=== PATIENT | male | born 1950 | race Caucasian/White ===

== ENCOUNTER 2018-02-16 18:19 | Inpatient (IN) | payer MEDICARE, OTHER ==
[~2018-02-16 18:19] MED LIST: Iopamidol 370 76% 100 ML VIAL ONE
[2018-02-16 18:38] LABS: Actual Bicarbonate (HCO3a) 34.5 mEq/L (22-28); Analyzer IN Cardio ER; Base Excess (BEa) 3.2 mEq/L (-2.0 to +3.0); Calcium, Ionized 1.22 mmol/L (1.12-1.30); Carboxyhemoglobin (COHb) 2.6 gm% (0.0-3.0); Hemoglobin (Hb) 13.2 g/dL (14.0-18.0); O2 Tension (PaO2) 207.4 mmHg (> 70.0); Potassium - ABG Lab 4.77 mmol/L (3.70-5.30)
[2018-02-16 18:39] LABS: CO2 Tension 94.3 mmHg (35.0-45.0); Puncture Site RRA; pH, Arterial 7.18 (7.35-7.45)
[2018-02-16 18:40] LABS: #Eosinphils 0.1 thou/uL (0.0-0.7); #Lymphocytes 1.3 thou/uL (1.20-3.40); #Monocytes 0.6 thou/uL (0.11-0.59); #Neutrophils 9.8 thou/uL (1.40-6.50); %Basophils 0.3 % (0.0-1.0); %Eosinophils 1.1 % (0.0-10.0); %Lymphocytes 11.1 % (21.0-51.0); %Monocytes 4.9 % (0.0-10.0); %Neutrophils 82.5 % (42.0-75.0); Hemoglobin 13.2 g/dL (14.0-18.0); Mean Platelet Volume 6.6 fL (7.4-10.4); Platelet Count 267 thou/uL (130-400); RBC Distribution Width 11.9 % (11.5-14.5); Red Blood Cell (RBC) Count 4.13 mill/uL (4.70-6.10); White Blood Cell (WBC) Count 11.9 thou/uL (4.8-10.8)
[2018-02-16 18:40] LABS: ALV-art Gradient 387.725 (0-20)
[2018-02-16 18:46] LABS: Bilirubin Negative (Negative); Blood, Urine Moderate (Negative); Clarity CLOUDY (Clear); Glucose, Urine (Dipstick) Negative (Negative); INR-International Normal Ratio 1.1; Leukocyte Large (Negative); Nitrite Negative (Negative); PTT 31.7 SEC (22.9-36.1); Protein, Urine (Dipstick) 30 mg/dL (Neg-Trace); Prothrombin Time 14.5 SEC (12.0-14.7); Specific Gravity, Urine 1.018 (1.002-1.036); pH, Urine 5.5 (5.0-9.0)
[2018-02-16 18:49] LABS: Bacteria/HPF None Seen HPF (None Seen); RBC/HPF 21-50 HPF (0-3); WBC/HPF 21-50 HPF (0-3)
[2018-02-16 18:50] LABS: Pathc Cast-AUWi Flag 3.48 (0-2.49)
[2018-02-16 18:58] LABS: ALT (SGPT) 18 U/L (8-55); AST (SGOT) 30 U/L (5-34); Alcohol Less than 10 mg/dL (Less than 10); Alkaline Phosphatase 73 U/L (40-150); Anion Gap 22 mmol/L (10-20); BUN (Urea Nitrogen) 31 mg/dL (8.4-25.7); Bilirubin, Total 0.5 mg/dL (0.2-1.2); CKMB 2.3 ng/mL (0-6.6); Calc. Creatinine Clearance 0 mL/min (70-130); Calcium 9.7 mg/dL (7.8-10.44); Carbon Dioxide 28 mmol/L (23-31); Chloride 94 mmol/L (98-107); Estimated GFR-MDRD 42; Globulin 4.6 g/dL (2.4-3.5); Glucose 127 mg/dL (80-115); Lipase 10 U/L (8-78); Potassium 6.3 mmol/L (3.5-5.1); Protein, Total 8.6 g/dL (5.8-8.1); Sodium 138 mmol/L (136-145)
[2018-02-16 19:07] LABS: Hyaline Casts/LPF 0-3 HYALINE CAST LPF (0-3 Hyaline); Other Casts/LPF None Seen LPF (0-3 Hyaline)
--- NOTE | 2018-02-16 19:39 | CT ---
CT BRAIN WITHOUT CONTRAST: INDICATIONS: Found in a pasture, after having been missing all day. The patient has altered mental status. FINDINGS: No definite acute infarct, hemorrhage, or hydrocephalus is present. There is generalized cerebral an d cerebellar atrophy. 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 There are remote lacunar infarctions involving the right caudate body, as well as portions of the right gl obus pallidus. There is mild chronic small vessel white matter ischemic change. The septum pellucid um and third ventricle are midline. There are air-fluid levels within the maxillary sinuses. The pa tient is intubated with associated gastric catheter placement. A suspected oropharyngeal airway is a lso present, in addition to the ET tube. IMPRESSION: 1. No definite acute infarct, hemorrhage, or hydrocephalus is present. 2. Chronic ischemic change, as above. POS: [facility]
--- NOTE | 2018-02-16 19:40 | CT ---
CT BRAIN WITHOUT CONTRAST: INDICATIONS: History of COPD. Hypertension. Found in pasture after having been missing all day. Concern for pos sible neck injury. FINDINGS: There is severe multilevel spondylosis of the cervical spine. No definite acute fracture or subluxat ion is demonstrated. The patient is intubated. A gastric catheter is in place. COPD change is seen involving the lung apices. The craniocervical junction appears within normal limits. IMPRESSION: No acute osseous abnormality. POS: [facility]
--- NOTE | 2018-02-16 19:53 | CT ---
CT CHEST AND ABDOMEN AND PELVIS WITH IV CONTRAST: INDICATIONS: A 68-year-old male, missing all day, found in a pasture, with altered mental status. FINDINGS: There is bilateral medial lower lobe air space consolidation, suspicious for aspiration. There is se tl emphysema. There is moderate cardiomegaly. There is scattered coronary artery and thoracic aor ta calcification. The patient is intubated. There is layered debris within both mainstem bronchi. The gastric catheter is projecting into the gastric body. No pneumothorax is demonstrated. No focal hepatic lesion is noted. The gallbladder is mildly distended. There are calcified granulom a within the spleen. There is slight hypertrophy of the left adrenal gland. The right adrenal gland is normal appearing. There are bilateral renal cysts. There are other small hypodensities, too sma ll to characterize, involving both kidneys. There is a 6 mm stone involving the inferior pole of the left kidney. No hydronephrosis is evident. There is severe vascular calcification noted, involving the abdominopelvic vasculature. There is mil d aneurysmal dilatation of the infrarenal abdominal aorta, measuring 3.1 cm. No free fluid is evident. The prostate is mildly enlarged. There is a Richardson catheter present. Ther e is post surgical change of a right hemicolectomy. There is post surgical change of an anterior abd ominal wall hernia repair. There is diffuse osteopenia. There is scattered degenerative and osteoarthritic change. No definite acute osseous abnormality is evident. IMPRESSION: 1. Bibasilar air space consolidation, suspicious for aspiration. 2. Severe chronic obstructive pulmonary disease. 3. Severe vascular calcifications. 4. Bilateral renal cysts and left nephrolithiasis. 5. Post surgical change of a right hemicolectomy and anterior abdominal wall hernia repair. 6. Prostate enlargement. 7. Chronic osseous changes, as above. POS: [facility]
[2018-02-16] MEDS ORDERED: Ampicillin/Sulbactam 3 GM in Sodium Chloride 0.9% 100 ML IVPB SCH (20:00)
[2018-02-16] MEDS ORDERED: Propofol 1,000 MG/100 ML VIAL IV ONE (20:28)
[2018-02-16] MEDS ORDERED: Insulin Regular 300 UNITS/3 ML VIAL ONE (20:55)
[2018-02-16] MEDS ORDERED: Dextrose 50% Abboject 50 ML SYRINGE ONE (20:55)
[2018-02-16] MEDS ORDERED: Calcium Gluc 4.6 MEQ/10 ML (100 MG/ML) ONE ×2 (20:55→21:15)
[2018-02-16 20:59] LABS: Actual Bicarbonate (HCO3a) 34.1 mEq/L (22-28); Analyzer IN Cardio ER; Base Excess (BEa) 5.5 mEq/L (-2.0 to +3.0); Calcium, Ionized 1.13 mmol/L (1.12-1.30); Carboxyhemoglobin (COHb) 2.5 gm% (0.0-3.0); Hemoglobin (Hb) 12.3 g/dL (14.0-18.0); Potassium - ABG Lab 4.66 mmol/L (3.70-5.30); pH, Arterial 7.29 (7.35-7.45)
[2018-02-16 21:03] LABS: CO2 Tension 72.1 mmHg (35.0-45.0); O2 Tension (PaO2) 59.5 mmHg (> 70.0); Puncture Site RRA
[2018-02-16 21:04] LABS: ALV-art Gradient 278.175 (0-20)
[2018-02-16] MEDS ORDERED: Senokot S 8.6-50 MG TAB PO PRN (21:41)
[2018-02-16] MEDS ORDERED: Bisacodyl 10 MG SUPP PR PRN (21:41)
[2018-02-16] MEDS ORDERED: CCU Electrolyte Replacement 1 EACH IVPB SCH (21:41)
[2018-02-16] MEDS ORDERED: Bisacodyl 5 MG TAB PO PRN (21:41)
[2018-02-16] MEDS ORDERED: Lacri-Lube Opth Oint 3.5 GM TUBE EA EYE PRN (21:41)
[2018-02-16] MEDS ORDERED: Acetaminophen 325 MG TAB PO PRN (21:41)
[2018-02-16] MEDS ORDERED: Norepinephrine 8 MG/0.9% NS 250 ML IVPB PRN (21:41)
[2018-02-16] MEDS ORDERED: Acetaminophen 650 MG Suppository PR PRN (21:41)
[2018-02-16] MEDS ORDERED: Fentanyl BOLUS 250 ML IVPB PRN (21:43)
[2018-02-16] MEDS ORDERED: DISCONTINUE PREVIOUS NARCOTIC PAIN MEDICATIONS AND BENZODIAZEPINES FS SCH (21:43)
[2018-02-16] MEDS ORDERED: Propofol BOLUS 1,000 MG/100 ML VIAL IV PRN (21:43)
[2018-02-16] MEDS ORDERED: Lorazepam 2 MG/ML VIAL ONE (21:44)
[2018-02-16] MEDS ORDERED: Ventilator Sedation Protocol 1 EACH FS SCH (21:45)
[2018-02-16] MEDS ORDERED: Potassium Phosphate 15 MMOL in Sodium Chloride 0.9% 250 ML 250 ML IV PRN (21:58)
[2018-02-16] MEDS ORDERED: Magnesium Oxide 400 MG TAB PO PRN ×2 (21:58)
[2018-02-16] MEDS ORDERED: Potassium Chloride 40 MEQ in Sodium Chloride 0.9% 250 ML 250 ML IVPB PRN (21:58)
[2018-02-16] MEDS ORDERED: Potassium Phosphate 9 MMOL in Sodium Chloride 0.9% 100 ML IVPB PRN (21:58)
[2018-02-16] MEDS ORDERED: CCU ELECTROLYTE REPLACEMENT PROTOCOL FS PRN (21:58)
[2018-02-16] MEDS ORDERED: Potassium Phosphate 12 MMOL in Sodium Chloride 0.9% 250 ML 250 ML IV PRN (21:58)
[2018-02-16] MEDS ORDERED: Potassium Chloride 20 MEQ TAB PO PRN (21:58)
[2018-02-16] MEDS ORDERED: Magnesium 2 GM/NS 0.9% 100 ML 2 GM in Premix Bag 1 BAG IVPB PRN (21:58)
[2018-02-16] MEDS ORDERED: Potassium Chloride 40 MEQ in Premix Bag 1 BAG IVPB PRN (21:58)
[2018-02-16] MEDS ORDERED: Lactated Ringer's 1,000 ML IV SCH (22:00)
[2018-02-16] MEDS ORDERED: Morphine 2 MG/ML SYRINGE SLOW IVP PRN (22:00)
[2018-02-16] MEDS ORDERED: cefTRIAXone\\ROCEPHIN 2 GM in Sodium Chloride 0.9% 100 ML IVPB SCH (22:15)
[2018-02-16 22:43] LABS: Troponin I 0.095 ng/mL (< 0.028)
[2018-02-16] MEDS: Azithromycin 500 MG in Sodium Chloride 0.9% 250 ML 250 ML IVPB SCH (23:22)
[2018-02-17] MEDS: Propofol 1,000 MG/100 ML VIAL IV PRN ×7 (00:27→23:44)
[2018-02-17 01:32] LABS: Band 4 % (5-11); Hemoglobin 11.8 g/dL (14.0-18.0); Hypochromia SLIGHT = 6-15 cells (100X) (0-5/hpf); Lymphocytes 8 % (21-51); MDiff Complete? YES; Macrocytosis SLIGHT = 6-15 cells (100X) (0-5/hpf); Mean Corpuscular Hemoglobin 32.3 pg (27.0-31.0); Mean Platelet Volume 6.7 fL (7.4-10.4); Monocytes 4 % (0-10); Neutrophil 84 % (42-75); PLT Morphology Comment Appears Adequate; Platelet Count 252 thou/uL (130-400); RBC Distribution Width 11.8 % (11.5-14.5); Red Blood Cell (RBC) Count 3.65 mill/uL (4.70-6.10); White Blood Cell (WBC) Count 12.5 thou/uL (4.8-10.8)
[2018-02-17 01:35] LABS: ALT (SGPT) 15 U/L (8-55); AST (SGOT) 13 U/L (5-34); Albumin 3.5 g/dL (3.4-4.8); Alkaline Phosphatase 61 U/L (40-150); Anion Gap 16 mmol/L (10-20); BUN (Urea Nitrogen) 32 mg/dL (8.4-25.7); Bilirubin, Total 0.3 mg/dL (0.2-1.2); Calc. Creatinine Clearance 80 mL/min (70-130); Calcium 9.9 mg/dL (7.8-10.44); Carbon Dioxide 35 mmol/L (23-31); Chloride 96 mmol/L (98-107); Estimated GFR-MDRD 48; Globulin 3.3 g/dL (2.4-3.5); Glucose 130 mg/dL (80-115); Potassium 4.5 mmol/L (3.5-5.1); Protein, Total 6.8 g/dL (5.8-8.1); Sodium 142 mmol/L (136-145)
[2018-02-17 01:42] LABS: Troponin I 0.157 ng/mL (< 0.028)
[2018-02-17] MEDS: Lactated Ringer's 1,000 ML IV SCH ×2 (04:34→07:23)
[2018-02-17 07:13] LABS: Actual Bicarbonate (HCO3a) 33.4 mEq/L (22-28); Base Excess (BEa) 9.5 mEq/L (-2.0 to +3.0); CO2 Tension 42.6 mmHg (35.0-45.0); Carboxyhemoglobin (COHb) 1.9 gm% (0.0-3.0); Hemoglobin (Hb) 11.2 g/dL (14.0-18.0); Potassium - ABG Lab 4.12 mmol/L (3.70-5.30); pH, Arterial 7.51 (7.35-7.45)
[2018-02-17 07:22] LABS: O2 Tension (PaO2) 40.5 mmHg (> 70.0); Puncture Site RRA
[2018-02-17] MEDS: fentaNYL Citrate/PF 2,000 MCG in Sodium Chloride 0.9% 60 ML IV SCH ×2 (07:24→20:06)
--- NOTE | 2018-02-17 08:06 | HP ---
CHIEF COMPLAINT: Alteration of mental status. HISTORY OF PRESENT ILLNESS: This is a 68-year-old male with past medical history of COPD, hypertension, anemia, colon cancer, status post resection, presenting with altered mental status. Per electronic medical records, the patient was found in the pastures. Per the , the patient was confused throughout the day and the patient woke up and drove off into the field and the patient was found in the field confused. Per EMS, the patient was able to move into the stretcher and the patient was last seen well on yesterday evening prior to the day of admission. REVIEW OF SYSTEMS: Unable to be obtained due to the patient's altered mental status. PAST MEDICAL HISTORY: COPD, hypertension, anemia, colon cancer. PAST SURGICAL HISTORY: Colon cancer status post resection, appendectomy, laparotomy. FAMILY HISTORY: reviewed and noncontributory PSYCHIATRIC HISTORY: PTSD. SOCIAL HISTORY: The patient chews tobacco and smoked cigarettes. The patient smokes 1 pack per day. Per history, the patient is an occasional drinker. Denies any illicit drugs. ALLERGIES: No known drug allergies. CURRENT MEDICATIONS: Patient takes albuterol, amlodipine 10 mg oral daily, atorvastatin 20 mg oral b.i.d., gabapentin, Lasix 40 mg b.i.d., tamsulosin 0.4 mg, Tylenol with codeine, Cyclobenzaprine 10 mg oral daily, Finasteride, unknown , loratadine, unknown. PHYSICAL EXAMINATION: VITAL SIGNS: Blood pressure is 130/58, pulse of 110, respiratory rate of 22, O2 saturations 100 on ventilator. GENERAL: Patient is lying in bed, intubated. HEENT: Normocephalic, atraumatic. Pupils are equal, round, and reactive to light, but sluggish, left pupil is 3 mm in size as well as the right pupil. NECK: The trachea is midline. Patient is intubated. The patient has ET tube in place. No JVD. LUNGS: Patient has ventilator lungs sounds at the anterior lung mcdonnell. CARDIAC: The patient has positive S1, S2. Regular rate and rhythm. No murmurs , no gallops appreciated. SKIN: Warm, dry, and intact. PSYCHIATRIC: Normal affect. EKG shows sinus tachycardia of 108. IMAGING: CT scan of the head is negative. No ischemic stroke. No acute changes. Cervical spine CT is negative, no fracture, no subluxation, no bony lesions, no cord compression. CT of the abdomen and pelvis shows aspiration pneumonia. ED COURSE: The patient was given calcium gluconate IV, Humulin R, ____, Diprivan, Unasyn, fentanyl. LABORATORY DATA: WBC 11.9, hemoglobin 13.2, hematocrit 42.5, MCV 103, RDW is 11.9, platelets 267. INR is 1.1. PH is 7.18, pCO2 is 94.3, pO2 is 207. Sodium 138, potassium 6.3, chloride is 94, carbon dioxide 28, anion gap of 22, BUN 31, creatinine is 1.62, GFR 42, glucose 127. Lactic acid of 0.7, alkaline phosphatase 73, AST is 30, ALT is 18. Troponin is 0.030. Lipase of 10. ASSESSMENT AND PLAN: This is a 68-year-old male being admitted for: 1. hypercapnic respiratory failure likely due to aspiration pneumonia. Patient is currently intubated and admitted to the ICU. We will start the patient on antibiotics. We will continue to monitor the patient closely. 2. Chronic obstructive pulmonary disease exacerbation. Patient is currently intubated. DuoNeb treatments. Aspiration precaution. Restart the patient on antibiotics. Pulmonology has been consulted. We will follow up with their recommendations. 3. Acute kidney injury likely due to dehydration. The patient's BUN and creatinine ratio is 20:1. At this point, we will start the patient on IV hydration. We will monitor the patient's electrolytes in the a.m. 4. Elevated troponins. At this point, the patient's troponin is elevated; however, indeterminate. The patient was found confused and was not fully responsive and the patient's troponin is slightly elevated. At this point, we will trend troponins. We will continue to follow the patient's labs closely and we will trend troponins. 5. Hyperkalemia. The patient has been given calcium gluconate. We will continue to monitor the patient closely. We will give patient Kayexalate and will repeat patient's potassium in the a.m. 6. Microcytic anemia. Currently, the patient's hemoglobin is stable. We will continue to monitor the patient and we will continue current management. 7. Hypertension. We will monitor the patient's blood pressure closely and we will continue to monitor the patient. 8. History of colon cancer, status post resection, currently stable. We will continue to monitor the patient. 9. Deep venous thrombosis and gastrointestinal prophylaxis. MTDD
--- NOTE | 2018-02-17 09:33 | RAD ---
PORTABLE CHEST 1 VIEW: Date: 02/17/18 Time: 0442 hours HISTORY: Respiratory failure. FINDINGS/IMPRESSION: There is an endotracheal tube with tip at the level of the clavicular heads. The heart is enlarged. B ibasilar infiltrates, left larger than right. No pneumothoraces or large effusions are seen. POS: [facility]
[2018-02-17] MEDS: Famotidine/PF 20 mg/2ml Vial SLOW IVP SCH ×2 (09:40→20:24)
[2018-02-17] MEDS: Enoxaparin Sodium 40 MG/0.4 ML SYRINGE SC SCH (09:40)
[2018-02-17] MEDS ORDERED: Dextrose 5% in Water 1,000 ML IV PRN (11:12)
[2018-02-17] MEDS ORDERED: Dextrose 50% Abboject 50 ML SYRINGE SLOW IVP PRN (11:12)
--- NOTE | 2018-02-17 11:12 | PDOC.PN ---
- Subjective Encounter Start Date: 02/17/18 Encounter Start Time: 11:02 -: non-verbal Subjective: nsg notes rev, kailey ovn, pt curr intub/sedated - Objective Resuscitation Status: Resuscitation Status FULL:Full Resuscitation Vital Signs & Weight: Vital Signs (12 hours) Temp Pulse Resp BP Pulse Ox 02/17/18 10:07 75 147/83 H 02/17/18 10:05 77 20 92 L 02/17/18 08:00 99.4 F 02/17/18 06:25 83 145/80 H 02/17/18 06:19 79 20 89 L 02/17/18 04:00 99.1 F 02/17/18 02:29 80 20 93 L 02/17/18 00:00 99.1 F 20 Weight Weight 260 lb 5 oz Most Recent Monitor Data Heart Rate from ECG 76 NIBP 139/79 NIBP BP-Mean 99 Respiration from ECG 20 SpO2 92 I&O: 02/16/18 02/17/18 02/18/18 06:59 06:59 06:59 Intake Total 1134 0 Output Total 940 200 Balance 194 -200 Result Diagrams: 02/17/18 00:46 02/17/18 00:46 Phys Exam - Physical Examination Constitutional: NAD lying in hospital bed, intubated HEENT: PERRLA, moist MMs Respiratory: no wheezing coarse ventilator sounds b/l Cardiovascular: RRR, no significant murmur, no rub Gastrointestinal: no distention, positive bowel sounds Dx/Plan - Plan * metabolic encephalopathy - found "down" and unresponsive in a pasture * likely 2/2 underlying COPD exac, pna (?aspiration) * currently intub/ sedated * apprec [facility] c/s * * COPD exac with acute hypoxemic respiratory failure - it appears he may have been O2 dependent at baseline, but that is not clear from documented hx * cont empiric ceftriaxone, azithromycin, augmentin * repeat ABG appears improved * empiric steroids with methylprednisolone with SSI Q6H in case of medication induced hyperglycemia * nebulizer treatments * with increasing leukocytosis overnight prior to being placed on steroids, will also check blood cultures * check urine strep, urine legionella, influenza * * elevated troponin * suspect demand ischemia secondary to above. check EKG, recheck troponin. * check ECHO * will c/s cardiology * * dec h/h * with continued hemodynamic stability * serial H/H, occult check stool, more likely dilutional, but will continue to closely monitor * * hyperkalemia on presentation * improved, continue to monitor * * TEO on admission * appears to be somewhat improved * continue to monitor renal fxn and UOP * * LLE larger than RLE * US doppler to eval for DVT * * diet: NPO * activity: bedrest * dvt ppx * Review of Systems - Medications/Allergies Allergies/Adverse Reactions: Allergies Allergy/AdvReac Type Severity Reaction Status Date / Time No Known Allergies Allergy Unverified 02/16/18 18:43 Medications: Current Medications Acetaminophen (Tylenol) 650 mg OR Q6H PRN PRN Reason: Fever > 101 or Mild Pain 1-3 Acetaminophen (Tylenol) 650 mg PO Q4H PRN PRN Reason: Headache/Fever/Mild Pain (1-3) Albuterol/Ipratropium (Duoneb) 3 ml NEB [id number] PRN PRN Reason: SOB &/or Wheezing Albuterol/Ipratropium (Duoneb) 3 ml [id number] [id number] [facility] Last Admin: 02/17/18 10:05 Dose: 3 ml Bisacodyl (Dulcolax) 10 mg PO DAILYPRN PRN PRN Reason: Constipation Bisacodyl (Dulcolax) 10 mg OR DAILYPRN PRN PRN Reason: Constipation Enoxaparin Sodium (Lovenox) 40 mg SC 0900 [facility] Last Admin: 02/17/18 09:40 Dose: 40 mg Famotidine (Pepcid) 20 mg SLOW IVP Q12HR [facility] Last Admin: 02/17/18 09:40 Dose: 20 mg Fentanyl Citrate 2,000 mcg/ (Sodium Chloride) 100 mls @ 0 mls/hr IV INF [facility]; Protocol Stop: 03/18/18 18:44 Last Admin: 02/17/18 07:24 Dose: 100 mls Fentanyl Citrate (Fentanyl Bolus) 250 mls @ 0 mls/hr IVPB PRN PRN PRN Reason: Breakthrough pain/agitation Stop: 03/18/18 21:43 Norepinephrine Bitartrate (Levophed) 250 mls @ 0 mls/hr IVPB PRN PRN; Protocol PRN Reason: To maintain MAP > 65 Potassium Chloride 40 meq/ (Sodium Chloride) 270 mls @ 135 mls/hr IVPB ASDIR PRN PRN Reason: FOR SERUM K+ 2.5 - 3.5 Potassium Chloride 40 meq/ (Device) 100 mls @ 50 mls/hr IVPB ASDIR PRN PRN Reason: FOR SERUM K+ 2.5 - 3.5 Magnesium Sulfate 1 gm/ Sodium (Chloride) 102 mls @ 102 mls/hr IV PRN PRN PRN Reason: MAG LEVEL 1.4 - 2.0 Magnesium Sulfate 2 gm/ Device 100 mls @ 100 mls/hr IVPB ASDIR PRN PRN Reason: MAGNESIUM < 1.4 Potassium Phosphate 9 mmol/ (Sodium Chloride) 103 mls @ 25.75 mls/hr IVPB ASDIR PRN PRN Reason: Phosphate 1.0-1.8 Potassium Phosphate 12 mmol/ (Sodium Chloride) 254 mls @ 63.5 mls/hr IV ASDIR PRN PRN Reason: Serum phosphate 0.5-0.9 Potassium Phosphate 15 mmol/ (Sodium Chloride) 255 mls @ 63.75 mls/hr IV ASDIR PRN PRN Reason: Serum Phos < 0.5 Azithromycin 500 mg/ Sodium (Chloride) 250 mls @ 250 mls/hr IVPB Q24HR [facility] Last Admin: 02/16/18 23:22 Dose: 250 mls Ceftriaxone Sodium 2 gm/ (Sodium Chloride) 100 mls @ 200 mls/hr IVPB Q24HR [facility] Lactated Ringer's (Lactated Ringer's) 1,000 mls @ 125 mls/hr IV .Q8H [facility] Last Admin: 02/17/18 07:23 Dose: 1,000 mls Lorazepam (Ativan) 2 mg SLOW IVP Q1H PRN PRN Reason: Breakthrough agitation Stop: 03/18/18 21:43 Magnesium Oxide (Magnesium Oxide) 400 mg PO BIDPRN PRN PRN Reason: FOR SERUM MAG 1.4 - 2.0 Magnesium Oxide (Magnesium Oxide) 800 mg PO PRN PRN PRN Reason: FOR SERUM MAG < 1.4 Mineral Oil/White Petrolatum (Lacri-Lube Ointment) 0 gm EA EYE PRN PRN PRN Reason: Dry Eyes Miscellaneous Medication (Ventilator Sedation Protocol) 1 each FS ONE [facility] Stop: 03/18/18 21:46 Miscellaneous Medication (Ccu Electrolyte Replacement) 1 each IVPB ONE [facility] Stop: 03/18/18 21:42 Miscellaneous Medication (Pharmacy To Dose) 1 each IVPB PRN PRN PRN Reason: Pharmacy to dose Miscellaneous Medication (Phos-Nak) 1 pkt PO TIDPRN PRN PRN Reason: FOR PHOS LEVEL 1.0 - 1.8 Miscellaneous Medication (Phos-Nak) 2 pkt PO TIDPRN PRN PRN Reason: FOR PHOS LEVEL 0.5 - 1.0 Morphine Sulfate (Morphine) 2 mg SLOW IVP Q1H PRN PRN Reason: BREAKTHROUGH PAIN/AGITATION Stop: 03/18/18 21:43 Discontinue Previous Narcotic Pain Medications And Benzodiazepines 1 each FS .ONE [facility] Stop: 03/18/18 21:43 Ccu Electrolyte (Replacement Protocol) 0 each FS PRN PRN PRN Reason: FOR ELECTROLYTE REPLACEMENT Potassium Chloride (K-Dur) 40 meq PO ASDIR PRN PRN Reason: FOR SERUM K+ 2.5 - 3.5 Potassium Chloride (Klor-Con) 40 meq PER TUBE ASDIR PRN PRN Reason: FOR SERUM K+ 2.5-3.5 Propofol (Diprivan) 1,000 mg IV INF PRN; Protocol PRN Reason: TO ACHIEVE GOAL RASS Stop: 03/18/18 21:43 Last Admin: 02/17/18 07:35 Dose: 1,000 mg Propofol (Diprivan Bolus) 20 mg IV Q5MIN PRN PRN Reason: BREAKTHROUGH AGITATION Stop: 03/18/18 21:43 Senna/Docusate Sodium (Senokot S) 2 tab PO BIDPRN PRN PRN Reason: Constipation Sodium Chloride (Flush - Normal Saline) 10 ml IVF Q12HR [facility] Last Admin: 02/17/18 09:41 Dose: 10 ml Sodium Chloride (Flush - Normal Saline) 10 ml IVF PRN PRN PRN Reason: Saline Flush
--- NOTE | 2018-02-17 13:17 | ULT ---
LEFT LOWER EXTREMITY VENOUS DUPLEX ULTRASOUND INCLUDING COLOR AND SPECTRAL DOPPLER IMAGING: History: 68-year-old male with history of left leg swelling and edema. FINDINGS: Exam performed from groin to ankle including visualized greater saphenous, common femoral, superficia l femoral, profunda femoral, popliteal, trifurcation, and posterior tibial vein regions. There is pha sic flow at all levels with normal compressibility and normal augmentation. No intraluminal thrombus. IMPRESSION: No evidence for deep venous thrombosis. POS: [facility]
[2018-02-17] MEDS: Sodium Chloride 0.45% 1,000 ML IV SCH (14:56)
--- NOTE | 2018-02-17 15:45 | CON ---
DATE OF CONSULTATION: 02/17/2018 HISTORY OF PRESENT ILLNESS: This is a 68-year-old male who reportedly has underlying chronic obstructive pulmonary disease. He has never been in the hospital here before. History is obtained from medical record and from his who is at bedside. He wears oxygeb 24 houra a day for COPD. He was in the [employer] in [place] and [place]. He continues to smoke. His wif says he awakened dyspneic yesterday am and became very agitated when she suggested he needed to go to hospital. She left the room and he retrieved a set of hidden truck keys and drove off. She called EMS and the police as well as several neighbors. He was found in a field of a neighbor 4-5 hours later poorly responsive, without his O2. He was not having problems the day prior. Subsequently, at some point, he was intubated by EMS in the field and is now in the Critical Care Unit. Apparently, he never arrested.. PAST MEDICAL AND SURGICAL HISTORY: Remarkable for COPD, hypertension, colon cancer, colon resection and appendectomy. SOCIAL HISTORY: He is a pack a day smoker, it is unclear whether or not he drinks. ALLERGIES: He has no reported drug allergies. MEDICATIONS: Prior to admission, apparently he was on albuterol. He has an albuterol nebulizer at home. He has amlodipine, atorvastatin, gabapentin, Lasix , Flomax, Tylenol #3, Flexeril, finasteride, and loratadine. REVIEW OF SYSTEMS: Not obtainable. FAMILY HISTORY: Not obtainable. PHYSICAL EXAMINATION: VITAL SIGNS: Blood pressure is 153/86, heart rate is in the 70s, respiratory rates in the 20s. HEENT: Pupils react. Sclerae are anicteric. NECK: Supple. LUNGS: Remarkable for coarse equal breath sounds. HEART: Regular rhythm. S1 and S2 are normal. ABDOMEN: Soft and nontender. EXTREMITIES: Without clubbing, cyanosis, or edema. NEUROLOGIC: Cannot be assessed. LABORATORY DATA: White count 12.5, hemoglobin 11.8, platelets 252,000. Sodium 142, potassium 4.5, chloride 96, bicarbonate 35, BUN 32, creatinine 1.44. IMAGING: Chest CT was reviewed, which shows bibasilar alveolar infiltrates posteriorly. IMPRESSION: 1. Community-acquired pneumonia. 2. Reported history of chronic obstructive pulmonary disease. 3. Respiratory failure, it is unclear whether he was intubated for confusion or just simply intubated for hypoxia. I can't tell from the notes whether or not he was in distress. His creatinine of 1.6 on presentation, 1.4 today that made me to believe that he is dry. He needs to continue be hydrated. Continue with nebulizer treatments. Continue with IV antimicrobial therapy. Taken off the lactated Ringer's and put him on half normal saline. I am happy to follow with the other physicians caring for him. Critical care time was 30 minutes. I reviewed all of his radiographs and also reviewed his blood gas. He required more PEEP this morning, which is not surprising. Hopefully, his renal function will continue to improve. [facility]
[2018-02-17] MEDS: cefTRIAXone\\ROCEPHIN 2 GM in Sodium Chloride 0.9% 100 ML IVPB SCH (20:24)
[2018-02-18] MEDS: Azithromycin 500 MG in Sodium Chloride 0.9% 250 ML 250 ML IVPB SCH ×2 (00:19→23:13)
[2018-02-18] MEDS: Propofol 1,000 MG/100 ML VIAL IV PRN ×6 (02:11→23:59)
[2018-02-18] MEDS: Sodium Chloride 0.45% 1,000 ML IV SCH ×2 (02:11→16:09)
--- NOTE | 2018-02-18 04:12 | CON ---
CARDIOLOGY CONSULT NOTE DATE OF ADMISSION: 02/16/2018 DATE OF CONSULTATION: 02/17/2018 INDICATION FOR CONSULTATION: A 68-year-old patient with respiratory failure on the ventilator in the intensive care unit who was found to have slight abnormalities of cardiac enzymes and a cardiology consultation was suggested. This gentleman who is actually on the ventilator, he would not give me any history at this time. There is no family history. The most of the information obtained from the records. At this time, the patient appears to be comfortable. He is on propofol drip. His blood pressure is stable. Heart rate is stable. I do not have any history that the patient had any coronary artery disease in the past. He does have a history of COPD. Apparently, he was brought to the emergency room, I guess by his who said that he was having some problems in breathing, but apparently the patient was found in the field for 5 hours later after he reportedly was in his truck and was going to perhaps in the emergency room after he became agitated when his suggested he go to the hospital. He apparently has home oxygen that he wears on a constant basis for his COPD and the time he was found he did not have the oxygen with him from what I can ascertain from the records. He did not have any specific recent problems and not complaining of any chest discomfort. The patient remains intubated and was intubated apparently in the field by EMS prior to arriving to the hospital. We do not have any history of coronary artery disease in this patient as far as I know, but he continues to smoke and may certainly have underlying coronary artery disease, but there is no indication of that he has any ischemia. PAST MEDICAL HISTORY: Significant for COPD, hypertension, and he has had a history of colon resection due to cancer. He has had an appendectomy. SOCIAL HISTORY: He is . He smokes a pack a day. ALLERGIES: No known drug allergies that we are aware of. MEDICATIONS PRIOR TO ADMISSION: Include inhalers as well as amlodipine, gabapentin, atorvastatin, Flomax, Lasix, Tylenol, Flexeril, finasteride, and loratadine. REVIEW OF SYSTEMS: Unable to obtain. FAMILY HISTORY: Family history is fairly unremarkable or is noncontributory at this time, we are unable to obtain this also. PHYSICAL EXAMINATION: VITAL SIGNS: Reveals a blood pressure 137/90, heart rate is 86 and regular shows sinus rhythm. O2 saturation 96%, respiratory rate 19. He is on the ventilator. He is sedated. He is arousable, however. HEENT: Shows the head to be normocephalic and atraumatic. Carotid pulses are present. I cannot hear any bruits at this time. CHEST: Shows decreased breath sounds throughout. I did not hear any rales, rhonchi, or wheezing. CARDIOVASCULAR: Heart sounds are distant, but did not hear any significant murmurs, heaves, thrills, bruits, or rubs. ABDOMEN: Obese with positive bowel sounds. No organomegaly or masses or cannot elicit any tenderness. EXTREMITIES: Show no clubbing or cyanosis. He does have some mild edema of the left lower extremity. Pedal pulses are difficult to palpate, but appeared to be present. NEUROLOGIC: Again, the patient is sedated. LABORATORY AND DIAGNOSTIC DATA: Shows evidence of slight increase in the cardiac enzymes which most likely due to demand ischemia associated with the respiratory failure. His MB was 2.3, but troponin I is still indeterminate. The most recent one was 0.157, on admission was 0.03. EKG does not show any evidence of ischemia. His laboratory data showed a creatinine of 1.44 with BUN of 32. TSH also was low at 0.328. WBC was 12.5 with a hemoglobin of 11.8 and he had 4% bands. IMPRESSION: 1. Respiratory failure. The patient is on ventilator with a history of chronic obstructive pulmonary disease. Most likely this indicates a chronic obstructive pulmonary disease exacerbation with respiratory failure after the patient may became confused uncertain as to what happened when the patient was in his truck and has been found later in the field. These details are somewhat unclear to me. 2. Elevated cardiac enzymes, most likely due to demand ischemia associated with his respiratory failure. 3. Hypertension, appears to be stable at this time, would continue his medications once he is able to take p.o. medications in the interim, we can certainly try IV beta blockers if necessary while he is on the ventilator or Norvasc for an NG tube to keep the blood pressure down or even IV nitroglycerin paste would also help with the blood pressure if necessary, but at this time, the blood pressure is stable. Once the patient is extubated, then we can perhaps get more information as he can undergo some type of stress testing in the future. At this time, he remains relatively stable. We would be more than happy to continue to follow the patient with you, but it does not appear that he is having any acute cardiac event at this time. HELENA
[2018-02-18 05:18] LABS: Hemoglobin 11.2 g/dL (14.0-18.0); Mean Corpuscular HGB CONC 32.3 g/dL (32.0-36.0); Mean Corpuscular Hemoglobin 32.2 pg (27.0-31.0); Mean Corpuscular Volume 99.7 fL (78.0-98.0); Mean Platelet Volume 6.8 fL (7.4-10.4); Platelet Count 235 thou/uL (130-400); RBC Distribution Width 11.9 % (11.5-14.5); Red Blood Cell (RBC) Count 3.49 mill/uL (4.70-6.10); White Blood Cell (WBC) Count 14.9 thou/uL (4.8-10.8)
[2018-02-18 05:22] LABS: Band 16 % (5-11); Lymphocytes 9 % (21-51); MDiff Complete? YES; Metamyelocyte 3 % (0-0); Monocytes 2 % (0-10); Myelocyte 3 % (0-0); Neutrophil 67 % (42-75); PLT Morphology Comment Appears Adequate
[2018-02-18 05:35] LABS: ALT (SGPT) 12 U/L (8-55); AST (SGOT) 13 U/L (5-34); Albumin 3.3 g/dL (3.4-4.8); Alkaline Phosphatase 58 U/L (40-150); Anion Gap 15 mmol/L (10-20); BUN (Urea Nitrogen) 23 mg/dL (8.4-25.7); Bilirubin, Total 0.3 mg/dL (0.2-1.2); Calc. Creatinine Clearance 129 mL/min (70-130); Calcium 9.5 mg/dL (7.8-10.44); Carbon Dioxide 31 mmol/L (23-31); Chloride 99 mmol/L (98-107); Estimated GFR-MDRD 85; Globulin 3.2 g/dL (2.4-3.5); Glucose 153 mg/dL (80-115); Potassium 4.2 mmol/L (3.5-5.1); Protein, Total 6.5 g/dL (5.8-8.1); Sodium 141 mmol/L (136-145)
[2018-02-18 07:03] LABS: Actual Bicarbonate (HCO3a) 32.9 mEq/L (22-28); Base Excess (BEa) 8.5 mEq/L (-2.0 to +3.0); CO2 Tension 44.5 mmHg (35.0-45.0); Carboxyhemoglobin (COHb) 1.2 gm% (0.0-3.0); Hemoglobin (Hb) 12.5 g/dL (14.0-18.0); O2 Tension (PaO2) 77.6 mmHg (> 70.0); Potassium - ABG Lab 4.14 mmol/L (3.70-5.30); pH, Arterial 7.49 (7.35-7.45)
[2018-02-18 07:08] LABS: ALV-art Gradient 258.925 (0-20); Puncture Site RRA
[2018-02-18] MEDS: Famotidine/PF 20 mg/2ml Vial SLOW IVP SCH ×2 (09:01→21:45)
[2018-02-18] MEDS: Enoxaparin Sodium 40 MG/0.4 ML SYRINGE SC SCH (09:01)
--- NOTE | 2018-02-18 09:12 | RAD ---
PORTABLE CHEST: History: Respiratory distress. Comparison: 02-17-18 FINDINGS: Heart size is enlarged. Endotracheal tube is in satisfactory position. NG tube appears to be below th e hemidiaphragm. Bibasilar lung changes appear slightly worsened as compared to the prior study. IMPRESSION: Slight worsening to the bibasilar lung changes as compared to the prior study. Some of this is just t echnique related. POS: OFF
[2018-02-18] MEDS: fentaNYL Citrate/PF 2,000 MCG in Sodium Chloride 0.9% 60 ML IV SCH ×2 (10:06→23:34)
[2018-02-18] MEDS: Haloperidol Lactate 5 MG/ML VIAL IM SCH ×3 (15:05→23:13)
[2018-02-18] MEDS: Lorazepam 2 MG/ML VIAL SLOW IVP PRN ×2 (15:47→22:28)
--- NOTE | 2018-02-18 16:31 | PRG ---
DATE OF SERVICE: 02/18/2018 SUBJECTIVE: Mr. Johnson is requiring a lot of sedation. He gets easily agitated, so we have added Charles ldol to his regimen intramuscularly. OBJECTIVE: VITAL SIGNS: Blood pressure 158/96, heart rate is 57, respiratory rate is 20, oximetry is 95. Intak e and output is positive 1743. LUNGS: Clear anteriorly. CARDIOVASCULAR: Regular rhythm. S1 and S2 are normal. ABDOMEN: Soft and nontender. EXTREMITIES: Without clubbing, cyanosis or edema. NEUROLOGIC: Grossly nonfocal when the sedation is decreased. LABORATORY DATA: White count 19.4, hemoglobin 11.2, platelets 235,000. Sodium 141, potassium 4.2, c hloride 99, bicarbonate 31, BUN 23, creatinine 0.89. PH 7.249, CO2 44, pO2 of 77. IMPRESSION: 1. Acute on chronic respiratory failure with hypoxia. 2. Bilateral lower lobe pneumonia. 3. Encephalopathy related to his pneumonia. 4. Preexisting chronic obstructive pulmonary disease. 5. History of hypertension. 6. History of colon cancer. 7. Demand ischemia. PLAN: Continue ventilatory support with sedation. He is probably several days away from being weana ble from mechanical ventilation. CRITICAL CARE TIME: 30 minutes.
[2018-02-18] MEDS: cefTRIAXone\\ROCEPHIN 2 GM in Sodium Chloride 0.9% 100 ML IVPB SCH (21:46)
--- NOTE | 2018-02-18 22:55 | PDOC.PN ---
- Subjective Encounter Start Date: 02/18/18 Encounter Start Time: 13:00 -: non-verbal Patient seen and examined for Resp failure. On [facility] Vent. No overnight events - Objective Resuscitation Status: Resuscitation Status FULL:Full Resuscitation MAR Reviewed: Yes Vital Signs & Weight: Vital Signs (12 hours) Temp Pulse Resp BP Pulse Ox 02/18/18 22:14 58 L 153/76 H 02/18/18 22:13 59 L 20 93 L 02/18/18 18:10 59 L 161/87 H 02/18/18 18:09 60 20 94 L 02/18/18 18:00 20 02/18/18 16:00 98.6 F 20 02/18/18 14:46 57 L 158/96 H 02/18/18 14:45 60 20 95 02/18/18 14:00 20 02/18/18 12:00 99 F 20 Weight Admit Weight 260 lb Weight 264 lb 1.82 oz Most Recent Monitor Data Heart Rate from ECG 58 NIBP 161/87 NIBP BP-Mean 111 Respiration from ECG 20 SpO2 95 I&O: 02/17/18 02/18/18 02/19/18 06:59 06:59 06:59 Intake Total 1134 3328.3 943 Output Total 940 1585 935 Balance 194 1743.3 8 Result Diagrams: 02/19/18 03:27 02/19/18 03:27 Additional Labs: Accuchecks 02/18/18 02/18/18 02/18/18 22:04 18:14 12:29 POC Glucose 151 H 150 H 159 H EKG Reviewed by me: Yes (Tele SR) Phys Exam - Physical Examination Constitutional: NAD (on VEnt) Respiratory: no wheezing Coarse BS B/L Cardiovascular: RRR, no rub Gastrointestinal: soft, no distention Musculoskeletal: no edema Dx/Plan - Plan DVT proph w/lovenox, DVT proph w/SCDs 1. Toxic Metabolic Encephalopathy 2. Acute hypoxic/hypercapneic resp failure/COPD Exacerbation / CA Pneumonia ? Pneumococcal 3. Elevated troponins prob due to demand ischemia 4. TEO/CKD 2/ Hyperkalemia 5. Obesity BMI 36.8 6. Other issues per previous notes PLAN: Cont Atbx/Vent support Echo reviewed Cont other meds as below Review of Systems - Review of Systems Other: Cannot obtain due to current mentation. - Medications/Allergies Allergies/Adverse Reactions: Allergies Allergy/AdvReac Type Severity Reaction Status Date / Time No Known Allergies Allergy Unverified 02/16/18 18:43 Medications: Current Medications Acetaminophen (Tylenol) 650 mg AL Q6H PRN PRN Reason: Fever > 101 or Mild Pain 1-3 Acetaminophen (Tylenol) 650 mg PO Q4H PRN PRN Reason: Headache/Fever/Mild Pain (1-3) Albuterol/Ipratropium (Duoneb) 3 ml NEB [id number] PRN PRN Reason: SOB &/or Wheezing Albuterol/Ipratropium (Duoneb) 3 ml EZPAP [id number] JIMENEZ Last Admin: 02/18/18 22:13 Dose: 3 ml Bisacodyl (Dulcolax) 10 mg PO DAILYPRN PRN PRN Reason: Constipation Bisacodyl (Dulcolax) 10 mg AL DAILYPRN PRN PRN Reason: Constipation Dextrose/Water (Dextrose 50%) 25 gm SLOW IVP PRN PRN PRN Reason: Hypoglycemia Enoxaparin Sodium (Lovenox) 40 mg SC 0900 [facility] Last Admin: 02/18/18 09:01 Dose: 40 mg Famotidine (Pepcid) 20 mg SLOW IVP Q12HR JIMENEZ Last Admin: 02/18/18 21:45 Dose: 20 mg Glucagon (Glucagon) 1 mg IM PRN PRN PRN Reason: Hypoglycemia Haloperidol Lactate (Haldol) 10 mg IM Q4H [facility] Last Admin: 02/18/18 18:08 Dose: 10 mg Fentanyl Citrate 2,000 mcg/ (Sodium Chloride) 100 mls @ 0 mls/hr IV INF JIMENEZ; Protocol Stop: 03/18/18 18:44 Last Admin: 02/18/18 10:06 Dose: 100 mls Fentanyl Citrate (Fentanyl Bolus) 250 mls @ 0 mls/hr IVPB PRN PRN PRN Reason: Breakthrough pain/agitation Stop: 03/18/18 21:43 Norepinephrine Bitartrate (Levophed) 250 mls @ 0 mls/hr IVPB PRN PRN; Protocol PRN Reason: To maintain MAP > 65 Potassium Chloride 40 meq/ (Sodium Chloride) 270 mls @ 135 mls/hr IVPB ASDIR PRN PRN Reason: FOR SERUM K+ 2.5 - 3.5 Potassium Chloride 40 meq/ (Device) 100 mls @ 50 mls/hr IVPB ASDIR PRN PRN Reason: FOR SERUM K+ 2.5 - 3.5 Magnesium Sulfate 1 gm/ Sodium (Chloride) 102 mls @ 102 mls/hr IV PRN PRN PRN Reason: MAG LEVEL 1.4 - 2.0 Magnesium Sulfate 2 gm/ Device 100 mls @ 100 mls/hr IVPB ASDIR PRN PRN Reason: MAGNESIUM < 1.4 Potassium Phosphate 9 mmol/ (Sodium Chloride) 103 mls @ 25.75 mls/hr IVPB ASDIR PRN PRN Reason: Phosphate 1.0-1.8 Potassium Phosphate 12 mmol/ (Sodium Chloride) 254 mls @ 63.5 mls/hr IV ASDIR PRN PRN Reason: Serum phosphate 0.5-0.9 Potassium Phosphate 15 mmol/ (Sodium Chloride) 255 mls @ 63.75 mls/hr IV ASDIR PRN PRN Reason: Serum Phos < 0.5 Azithromycin 500 mg/ Sodium (Chloride) 250 mls @ 250 mls/hr IVPB Q24HR [facility] Last Admin: 02/18/18 00:19 Dose: 250 mls Ceftriaxone Sodium 2 gm/ (Sodium Chloride) 100 mls @ 200 mls/hr IVPB Q24HR [facility] Last Admin: 02/18/18 21:46 Dose: 100 mls Dextrose/Water (D5w) 1,000 mls @ 0 mls/hr IV .Q0M PRN PRN Reason: Hypoglycemia Sodium Chloride (1/2 Normal Saline) 1,000 mls @ 75 mls/hr IV .[id number] [facility] Last Admin: 02/18/18 16:09 Dose: Not Given Insulin Human Lispro (Humalog) 0 units SC .MILD SLIDING SCALE PRN PRN Reason: Mild Correctional Scale Lorazepam (Ativan) 2 mg SLOW IVP Q1H PRN PRN Reason: Breakthrough agitation Stop: 03/18/18 21:43 Last Admin: 02/18/18 22:28 Dose: 2 mg Magnesium Oxide (Magnesium Oxide) 400 mg PO BIDPRN PRN PRN Reason: FOR SERUM MAG 1.4 - 2.0 Magnesium Oxide (Magnesium Oxide) 800 mg PO PRN PRN PRN Reason: FOR SERUM MAG < 1.4 Methylprednisolone Sodium Succinate (Solu-Medrol) 40 mg IVP Q6HR [facility] Last Admin: 02/18/18 18:08 Dose: 40 mg Mineral Oil/White Petrolatum (Lacri-Lube Ointment) 0 gm EA EYE PRN PRN PRN Reason: Dry Eyes Miscellaneous Medication (Ventilator Sedation Protocol) 1 each FS ONE JIMENEZ Stop: 03/18/18 21:46 Miscellaneous Medication (Ccu Electrolyte Replacement) 1 each IVPB ONE JIMENEZ Stop: 03/18/18 21:42 Miscellaneous Medication (Pharmacy To Dose) 1 each IVPB PRN PRN PRN Reason: Pharmacy to dose Miscellaneous Medication (Phos-Nak) 1 pkt PO TIDPRN PRN PRN Reason: FOR PHOS LEVEL 1.0 - 1.8 Miscellaneous Medication (Phos-Nak) 2 pkt PO TIDPRN PRN PRN Reason: FOR PHOS LEVEL 0.5 - 1.0 Morphine Sulfate (Morphine) 2 mg SLOW IVP Q1H PRN PRN Reason: BREAKTHROUGH PAIN/AGITATION Stop: 03/18/18 21:43 Discontinue Previous Narcotic Pain Medications And Benzodiazepines 1 each FS .ONE JIMENEZ Stop: 03/18/18 21:43 Ccu Electrolyte (Replacement Protocol) 0 each FS PRN PRN PRN Reason: FOR ELECTROLYTE REPLACEMENT Potassium Chloride (K-Dur) 40 meq PO ASDIR PRN PRN Reason: FOR SERUM K+ 2.5 - 3.5 Potassium Chloride (Klor-Con) 40 meq PER TUBE ASDIR PRN PRN Reason: FOR SERUM K+ 2.5-3.5 Propofol (Diprivan) 1,000 mg IV INF PRN; Protocol PRN Reason: TO ACHIEVE GOAL RASS Stop: 03/18/18 21:43 Last Admin: 02/18/18 20:00 Dose: 1,000 mg Propofol (Diprivan Bolus) 20 mg IV Q5MIN PRN PRN Reason: BREAKTHROUGH AGITATION Stop: 03/18/18 21:43 Senna/Docusate Sodium (Senokot S) 2 tab PO BIDPRN PRN PRN Reason: Constipation Sodium Chloride (Flush - Normal Saline) 10 ml IVF Q12HR JIMENEZ Last Admin: 02/18/18 21:46 Dose: 10 ml Sodium Chloride (Flush - Normal Saline) 10 ml IVF PRN PRN PRN Reason: Saline Flush
[2018-02-19] MEDS: Haloperidol Lactate 5 MG/ML VIAL IM SCH ×6 (03:09→23:57)
[2018-02-19 04:41] LABS: Hemoglobin 11.7 g/dL (14.0-18.0); Mean Corpuscular HGB CONC 32.3 g/dL (32.0-36.0); Mean Corpuscular Hemoglobin 31.8 pg (27.0-31.0); Mean Corpuscular Volume 98.5 fL (78.0-98.0); Platelet Count 236 thou/uL (130-400); RBC Distribution Width 12.1 % (11.5-14.5); Red Blood Cell (RBC) Count 3.68 mill/uL (4.70-6.10); White Blood Cell (WBC) Count 17.5 thou/uL (4.8-10.8)
[2018-02-19 04:53] LABS: Band 7 % (5-11); Lymphocytes 4 % (21-51); MDiff Complete? YES; Metamyelocyte 2 % (0-0); Monocytes 7 % (0-10); Myelocyte 3 % (0-0); Neutrophil 77 % (42-75); Nucleated RBC 1 % (0)
[2018-02-19 05:00] LABS: ALT (SGPT) 14 U/L (8-55); AST (SGOT) 15 U/L (5-34); Albumin 3.3 g/dL (3.4-4.8); Alkaline Phosphatase 61 U/L (40-150); Anion Gap 14 mmol/L (10-20); BUN (Urea Nitrogen) 23 mg/dL (8.4-25.7); Bilirubin, Total 0.3 mg/dL (0.2-1.2); Calc. Creatinine Clearance 144 mL/min (70-130); Calcium 9.4 mg/dL (7.8-10.44); Carbon Dioxide 33 mmol/L (23-31); Chloride 98 mmol/L (98-107); Estimated GFR-MDRD Greater than 90; Globulin 3.3 g/dL (2.4-3.5); Glucose 160 mg/dL (80-115); Magnesium 2.6 mg/dL (1.6-2.6); Potassium 4.5 mmol/L (3.5-5.1); Protein, Total 6.6 g/dL (5.8-8.1); Sodium 140 mmol/L (136-145)
[2018-02-19] MEDS: Propofol 1,000 MG/100 ML VIAL IV PRN ×4 (05:48→17:27)
[2018-02-19 07:08] LABS: Actual Bicarbonate (HCO3a) 33.4 mEq/L (22-28); Base Excess (BEa) 8.9 mEq/L (-2.0 to +3.0); Carboxyhemoglobin (COHb) 1.2 gm% (0.0-3.0); Hemoglobin (Hb) 13.4 g/dL (14.0-18.0); O2 Tension (PaO2) 62.1 mmHg (> 70.0); pH, Arterial 7.49 (7.35-7.45)
[2018-02-19 07:11] LABS: Puncture Site RRA
[2018-02-19] MEDS: Lorazepam 2 MG/ML VIAL SLOW IVP PRN (07:41)
[2018-02-19] MEDS: Sodium Chloride 0.45% 1,000 ML IV SCH ×2 (07:43→23:58)
--- NOTE | 2018-02-19 08:33 | RAD ---
SINGLE VIEW OF THE CHEST: COMPARISON: 02/18/2018. HISTORY: CCU patient with respiratory failure. FINDINGS: A single view of the chest shows an enlarged but stable cardiomediastinal silhouette. Endotracheal t ube and NG tube are unchanged in position. Small bilateral pleural effusions are seen. No change cuellar s occurred compared to the prior exam. IMPRESSION: Stable exam. POS: [facility]
[2018-02-19] MEDS: Famotidine/PF 20 mg/2ml Vial SLOW IVP SCH ×2 (10:18→20:00)
[2018-02-19] MEDS: Enoxaparin Sodium 40 MG/0.4 ML SYRINGE SC SCH (10:19)
[2018-02-19] MEDS: HumaLOG 300 UNITS/3 ML VIAL SC PRN ×2 (11:09→16:48)
[2018-02-19] MEDS: fentaNYL Citrate/PF 2,000 MCG in Sodium Chloride 0.9% 60 ML IV SCH (13:55)
--- NOTE | 2018-02-19 16:18 | PRG ---
DATE OF SERVICE: 02/19/2018 SUBJECTIVE: Mr. Johnson remains mechanically ventilated. His agitation has improved somewhat with th e addition of Haldol. His propofol dosing has been decreased. OBJECTIVE: VITALS: His heart rate is in the 50s, respiratory rates in the 20s, blood pressure 139/77. LUNGS: Remarkable for rhonchi bilaterally. CARDIOVASCULAR: Regular rhythm. S1 and S2 are normal. ABDOMEN: Soft and nontender. EXTREMITIES: Without asymmetry. DIAGNOSTIC DATA: Chest radiograph is unchanged. Haziness in both lung bases persists. Echocardiogram from 2 days ago showed decreased ejection fraction of 40-45% of the posterior wall jenny t was akinetic. IMPRESSION: 1. Community-acquired pneumonia, bilateral. 2. Underlying obstructive lung disease. 3. Chronic respiratory failure on oxygen at home, now intubated. 4. Cardiomyopathy with echocardiogram. 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 5. History of hypertension. 6. History of colon cancer. PLAN: Continue mechanical ventilation with sedation, nutritional support, antimicrobial therapy. Cu ltures have been reviewed and blood cultures are negative. Endotracheal aspirate, negative. I would anticipate he will remain mechanically ventilated for several more days given his multiple co mplex problems. Fluid balance is positive only 202 mL today. We will continue current critical care support. Critical care time 30 minutes.
[2018-02-19] MEDS: cefTRIAXone\\ROCEPHIN 2 GM in Sodium Chloride 0.9% 100 ML IVPB SCH (20:00)
--- NOTE | 2018-02-19 22:20 | PDOC.PN ---
- Subjective Encounter Start Date: 02/19/18 Encounter Start Time: 09:30 -: non-verbal Patient seen and examined for Resp failure. On [facility] Vent. No overnight events - Objective Resuscitation Status: Resuscitation Status FULL:Full Resuscitation MAR Reviewed: Yes Vital Signs & Weight: Vital Signs (12 hours) Temp Pulse Resp BP Pulse Ox 02/19/18 22:13 54 L 138/78 02/19/18 22:12 54 L 20 95 02/19/18 22:00 20 02/19/18 20:00 98.8 F 20 94 L 02/19/18 18:16 65 135/69 02/19/18 18:14 67 20 97 02/19/18 18:00 20 02/19/18 16:00 99.4 F 20 02/19/18 15:37 56 L 02/19/18 14:00 20 02/19/18 13:12 55 L 02/19/18 12:00 98.6 F 20 Weight Admit Weight 260 lb Weight 264 lb 1.82 oz Most Recent Monitor Data Heart Rate from ECG 53 NIBP 138/78 NIBP BP-Mean 98 Respiration from ECG 23 SpO2 95 I&O: 02/18/18 02/19/18 02/20/18 06:59 06:59 06:59 Intake Total 3328.3 2307.2 990 Output Total 1585 2105 1220 Balance 1743.3 202.2 -230 Result Diagrams: 02/19/18 03:27 02/19/18 03:27 Additional Labs: Accuchecks 02/19/18 02/19/18 02/19/18 16:43 10:55 04:39 POC Glucose 164 H 178 H 157 H EKG Reviewed by me: Yes (Tele SR) Phys Exam - Physical Examination Constitutional: NAD Respiratory: no wheezing, no rhonchi Bibasilar rales Cardiovascular: RRR, no rub Gastrointestinal: soft, positive bowel sounds Musculoskeletal: no edema Dx/Plan - Plan DVT proph w/lovenox, DVT proph w/SCDs 1. Toxic Metabolic Encephalopathy 2. Acute hypoxic-hypercapneic resp failure/COPD Exacerbation/ CA Pneumonia ? Pneumococcal 3. Elevated troponins prob due to demand ischemia 4. TEO/CKD 2/ Hyperkalemia 5. Obesity BMI 36.8 / Chronic resp failure on home O2 6. Other issues per previous notes PLAN: Cont Atbx/Nebs/Steroids Cont Vent support On Haldol for Agitation DVT/GI prophylaxis Review of Systems - Review of Systems Other: Cannot obtain due to current mentation - Medications/Allergies Allergies/Adverse Reactions: Allergies Allergy/AdvReac Type Severity Reaction Status Date / Time No Known Allergies Allergy Unverified 02/16/18 18:43 Medications: Current Medications Acetaminophen (Tylenol) 650 mg MD Q6H PRN PRN Reason: Fever > 101 or Mild Pain 1-3 Acetaminophen (Tylenol) 650 mg PO Q4H PRN PRN Reason: Headache/Fever/Mild Pain (1-3) Albuterol/Ipratropium (Duoneb) 3 ml NEB [id number] PRN PRN Reason: SOB &/or Wheezing Albuterol/Ipratropium (Duoneb) 3 ml EZPAP [id number] JIMENEZ Last Admin: 02/19/18 22:12 Dose: 3 ml Bisacodyl (Dulcolax) 10 mg PO DAILYPRN PRN PRN Reason: Constipation Bisacodyl (Dulcolax) 10 mg MD DAILYPRN PRN PRN Reason: Constipation Dextrose/Water (Dextrose 50%) 25 gm SLOW IVP PRN PRN PRN Reason: Hypoglycemia Enoxaparin Sodium (Lovenox) 40 mg SC 0900 [facility] Last Admin: 02/19/18 10:19 Dose: 40 mg Famotidine (Pepcid) 20 mg SLOW IVP Q12HR JIMENEZ Last Admin: 02/19/18 20:00 Dose: 20 mg Glucagon (Glucagon) 1 mg IM PRN PRN PRN Reason: Hypoglycemia Haloperidol Lactate (Haldol) 10 mg IM Q4H [facility] [place] Last Admin: 02/19/18 19:53 Dose: 10 mg Fentanyl Citrate 2,000 mcg/ (Sodium Chloride) 100 mls @ 0 mls/hr IV INF JIMENEZ; Protocol Stop: 03/18/18 18:44 Last Admin: 02/19/18 13:55 Dose: 100 mls Fentanyl Citrate (Fentanyl Bolus) 250 mls @ 0 mls/hr IVPB PRN PRN PRN Reason: Breakthrough pain/agitation Stop: 03/18/18 21:43 Norepinephrine Bitartrate (Levophed) 250 mls @ 0 mls/hr IVPB PRN PRN; Protocol PRN Reason: To maintain MAP > 65 Potassium Chloride 40 meq/ (Sodium Chloride) 270 mls @ 135 mls/hr IVPB ASDIR PRN PRN Reason: FOR SERUM K+ 2.5 - 3.5 Potassium Chloride 40 meq/ (Device) 100 mls @ 50 mls/hr IVPB ASDIR PRN PRN Reason: FOR SERUM K+ 2.5 - 3.5 Magnesium Sulfate 1 gm/ Sodium (Chloride) 102 mls @ 102 mls/hr IV PRN PRN PRN Reason: MAG LEVEL 1.4 - 2.0 Magnesium Sulfate 2 gm/ Device 100 mls @ 100 mls/hr IVPB ASDIR PRN PRN Reason: MAGNESIUM < 1.4 Potassium Phosphate 9 mmol/ (Sodium Chloride) 103 mls @ 25.75 mls/hr IVPB ASDIR PRN PRN Reason: Phosphate 1.0-1.8 Potassium Phosphate 12 mmol/ (Sodium Chloride) 254 mls @ 63.5 mls/hr IV ASDIR PRN PRN Reason: Serum phosphate 0.5-0.9 Potassium Phosphate 15 mmol/ (Sodium Chloride) 255 mls @ 63.75 mls/hr IV ASDIR PRN PRN Reason: Serum Phos < 0.5 Azithromycin 500 mg/ Sodium (Chloride) 250 mls @ 250 mls/hr IVPB Q24HR [facility] [place] Last Admin: 02/18/18 23:13 Dose: 250 mls Ceftriaxone Sodium 2 gm/ (Sodium Chloride) 100 mls @ 200 mls/hr IVPB Q24HR [facility] [place] Last Admin: 02/19/18 20:00 Dose: 100 mls Dextrose/Water (D5w) 1,000 mls @ 0 mls/hr IV .Q0M PRN PRN Reason: Hypoglycemia Sodium Chloride (1/2 Normal Saline) 1,000 mls @ 75 mls/hr IV .[id number] [facility] [place] Last Admin: 02/19/18 07:43 Dose: Not Given Insulin Human Lispro (Humalog) 0 units SC .MILD SLIDING SCALE PRN PRN Reason: Mild Correctional Scale Last Admin: 02/19/18 16:48 Dose: 2 unit Lorazepam (Ativan) 2 mg SLOW IVP Q1H PRN PRN Reason: Breakthrough agitation Stop: 03/18/18 21:43 Last Admin: 02/19/18 07:41 Dose: 2 mg Magnesium Oxide (Magnesium Oxide) 400 mg PO BIDPRN PRN PRN Reason: FOR SERUM MAG 1.4 - 2.0 Magnesium Oxide (Magnesium Oxide) 800 mg PO PRN PRN PRN Reason: FOR SERUM MAG < 1.4 Methylprednisolone Sodium Succinate (Solu-Medrol) 40 mg IVP Q6HR JIMENEZ Last Admin: 02/19/18 17:37 Dose: 40 mg Mineral Oil/White Petrolatum (Lacri-Lube Ointment) 0 gm EA EYE PRN PRN PRN Reason: Dry Eyes Miscellaneous Medication (Ventilator Sedation Protocol) 1 each FS ONE JIMENEZ Stop: 03/18/18 21:46 Miscellaneous Medication (Ccu Electrolyte Replacement) 1 each IVPB ONE JIMENEZ Stop: 03/18/18 21:42 Miscellaneous Medication (Pharmacy To Dose) 1 each IVPB PRN PRN PRN Reason: Pharmacy to dose Miscellaneous Medication (Phos-Nak) 1 pkt PO TIDPRN PRN PRN Reason: FOR PHOS LEVEL 1.0 - 1.8 Miscellaneous Medication (Phos-Nak) 2 pkt PO TIDPRN PRN PRN Reason: FOR PHOS LEVEL 0.5 - 1.0 Morphine Sulfate (Morphine) 2 mg SLOW IVP Q1H PRN PRN Reason: BREAKTHROUGH PAIN/AGITATION Stop: 03/18/18 21:43 Discontinue Previous Narcotic Pain Medications And Benzodiazepines 1 each FS .ONE JIMENEZ Stop: 03/18/18 21:43 Ccu Electrolyte (Replacement Protocol) 0 each FS PRN PRN PRN Reason: FOR ELECTROLYTE REPLACEMENT Potassium Chloride (K-Dur) 40 meq PO ASDIR PRN PRN Reason: FOR SERUM K+ 2.5 - 3.5 Potassium Chloride (Klor-Con) 40 meq PER TUBE ASDIR PRN PRN Reason: FOR SERUM K+ 2.5-3.5 Propofol (Diprivan) 1,000 mg IV INF PRN; Protocol PRN Reason: TO ACHIEVE GOAL RASS Stop: 03/18/18 21:43 Last Admin: 02/19/18 17:27 Dose: 1,000 mg Propofol (Diprivan Bolus) 20 mg IV Q5MIN PRN PRN Reason: BREAKTHROUGH AGITATION Stop: 03/18/18 21:43 Senna/Docusate Sodium (Senokot S) 2 tab PO BIDPRN PRN PRN Reason: Constipation Sodium Chloride (Flush - Normal Saline) 10 ml IVF Q12HR JIMENEZ Last Admin: 02/19/18 20:00 Dose: 10 ml Sodium Chloride (Flush - Normal Saline) 10 ml IVF PRN PRN PRN Reason: Saline Flush
[2018-02-19] MEDS: Azithromycin 500 MG in Sodium Chloride 0.9% 250 ML 250 ML IVPB SCH (23:57)
[2018-02-20] MEDS: Haloperidol Lactate 5 MG/ML VIAL IM SCH ×5 (04:05→20:02)
[2018-02-20] MEDS: Propofol 1,000 MG/100 ML VIAL IV PRN ×5 (04:06→23:07)
[2018-02-20] MEDS: HumaLOG 300 UNITS/3 ML VIAL SC PRN ×3 (04:07→16:14)
[2018-02-20 04:31] LABS: Hemoglobin 12.2 g/dL (14.0-18.0); Mean Corpuscular HGB CONC 32.9 g/dL (32.0-36.0); Mean Corpuscular Hemoglobin 32.4 pg (27.0-31.0); Mean Corpuscular Volume 98.4 fL (78.0-98.0); Mean Platelet Volume 7.4 fL (7.4-10.4); Platelet Count 208 thou/uL (130-400); Red Blood Cell (RBC) Count 3.78 mill/uL (4.70-6.10)
[2018-02-20 04:33] LABS: ALT (SGPT) 26 U/L (8-55); AST (SGOT) 31 U/L (5-34); Albumin 3.2 g/dL (3.4-4.8); Alkaline Phosphatase 51 U/L (40-150); Anion Gap 11 mmol/L (10-20); BUN (Urea Nitrogen) 29 mg/dL (8.4-25.7); Bilirubin, Total 0.3 mg/dL (0.2-1.2); Calc. Creatinine Clearance 146 mL/min (70-130); Calcium 9.2 mg/dL (7.8-10.44); Carbon Dioxide 32 mmol/L (23-31); Chloride 99 mmol/L (98-107); Estimated GFR-MDRD Greater than 90; Glucose 177 mg/dL (80-115); Potassium 4.5 mmol/L (3.5-5.1); Protein, Total 6.2 g/dL (5.8-8.1); Sodium 137 mmol/L (136-145)
[2018-02-20 04:50] LABS: Band 12 % (5-11); Lymphocytes 11 % (21-51); MDiff Complete? YES; Monocytes 5 % (0-10); Neutrophil 72 % (42-75)
[2018-02-20 06:22] LABS: Actual Bicarbonate (HCO3a) 32.8 mEq/L (22-28); Base Excess (BEa) 6.7 mEq/L (-2.0 to +3.0); CO2 Tension 53.4 mmHg (35.0-45.0); Calcium, Ionized 1.21 mmol/L (1.12-1.30); Carboxyhemoglobin (COHb) 0.8 gm% (0.0-3.0); Hemoglobin (Hb) 12.5 g/dL (14.0-18.0); O2 Tension (PaO2) 85.6 mmHg (> 70.0); Potassium - ABG Lab 4.55 mmol/L (3.70-5.30); pH, Arterial 7.41 (7.35-7.45)
[2018-02-20 06:24] LABS: Puncture Site RRA
[2018-02-20] MEDS: Enoxaparin Sodium 40 MG/0.4 ML SYRINGE SC SCH (08:06)
[2018-02-20] MEDS: Famotidine/PF 20 mg/2ml Vial SLOW IVP SCH ×2 (08:07→20:02)
[2018-02-20] MEDS: Lorazepam 2 MG/ML VIAL SLOW IVP PRN ×3 (08:08→23:01)
--- NOTE | 2018-02-20 08:32 | RAD ---
CHEST 1 VIEW: HISTORY: Chest pain. Ventilated patient. COMPARISON: Radiograph from prior day. FINDINGS: Endotracheal tube tip sits just below the level of the clavicles. Bibasilar airspace opacities with layering effusions. No large pneumothorax. Heart size continues to be enlarged. Enteric tube tip appears to be at the level of the gastric body. IMPRESSION: No significant change. POS: [facility]
--- NOTE | 2018-02-20 09:37 | PRG ---
DATE OF SERVICE: 02/20/2018 Kd Johnson still requires significant sedation. He is receiving fentanyl, Haldol and propofol wi th p.r.n. Ativan. PHYSICAL EXAMINATION: VITAL SIGNS: Heart rate is in the 60s. Blood pressure 133/78, respiratory rate in the 20s, oximetry is 99, blood pressure 133/78. LUNGS: Remarkable for rhonchi bilaterally. HEART: Regular rhythm. ABDOMEN: Soft and nontender. EXTREMITIES: Without clubbing, cyanosis, or edema. LABORATORY DATA: White count 18.0, hemoglobin 12.2, platelets 208,000. Sodium 137, potassium 4.5, chloride 99, bicarbonate 32, BUN 29, creatinine 0.78, pH 7.41, CO2 53, pO2 85. His current ventilator settings are tidal volume of 500, IMV of 20 turning down to a rate of 14. IMPRESSION: 1. Pneumonia. 2. Chronic obstructive pulmonary disease. 3. Encephalopathy on presentation, probably secondary to hypoxia combined with his critical illness. 4. ? Component of hypoxic injury. He was out in the field without his oxygen between 4 and 5 hours before neighbors found him. 5. Deconditioning. 6. Chronic respiratory failure on home oxygen with CO2 retention. 7. Anemia is most likely secondary to blood draws. He does have an elevated mean corpuscular volume . It is not a clinical issue at this time. 8. Diabetes. 9. It is reported by his that he has posttraumatic stress disorder. He will continue mechanical ventilation. I do not anticipate him being weanable for several days if not at least another week. He actually may end up with a tracheostomy because of his poor premorbid functional status. Critical care time was 30 minutes.
[2018-02-20] MEDS: Sodium Chloride 0.45% 1,000 ML IV SCH (10:31)
[2018-02-20] MEDS: fentaNYL Citrate/PF 2,000 MCG in Sodium Chloride 0.9% 60 ML IV SCH (12:40)
[2018-02-20] MEDS: cefTRIAXone\\ROCEPHIN 2 GM in Sodium Chloride 0.9% 100 ML IVPB SCH (20:02)
--- NOTE | 2018-02-20 20:41 | PDOC.PN ---
- Subjective Encounter Start Date: 02/20/18 Encounter Start Time: 10:00 -: non-verbal Patient seen and examined for Resp failure. On [facility] Vent. No overnight events - Objective Resuscitation Status: Resuscitation Status FULL:Full Resuscitation MAR Reviewed: Yes Vital Signs & Weight: Vital Signs (12 hours) Temp Pulse Resp BP Pulse Ox 02/20/18 20:00 98.8 F 02/20/18 18:24 69 140/77 02/20/18 18:00 18 02/20/18 16:00 98.7 F 21 H 02/20/18 14:50 49 L 131/64 02/20/18 14:49 51 L 14 96 02/20/18 14:00 14 02/20/18 12:00 98.6 F 15 02/20/18 11:27 57 L 143/77 H 02/20/18 11:24 60 14 99 02/20/18 10:00 14 Weight Admit Weight 260 lb Weight 257 lb 7.999 oz Most Recent Monitor Data Heart Rate from ECG 71 NIBP 144/72 NIBP BP-Mean 96 Respiration from ECG 18 SpO2 95 I&O: 02/19/18 02/20/18 02/21/18 06:59 06:59 06:59 Intake Total 2307.2 2367.5 963 Output Total 2105 2105 1220 Balance 202.2 262.5 -257 Result Diagrams: 02/20/18 03:37 02/20/18 03:37 Additional Labs: Accuchecks 02/20/18 02/20/18 02/20/18 16:11 10:09 03:32 POC Glucose 172 H 180 H 170 H 02/19/18 22:28 POC Glucose 163 H EKG Reviewed by me: Yes (Tele SR) Phys Exam - Physical Examination Constitutional: NAD on Vent Respiratory: no wheezing Bibasilar rales with rhonchi Cardiovascular: RRR, no rub Gastrointestinal: soft, positive bowel sounds Musculoskeletal: no edema Dx/Plan - Plan DVT proph w/lovenox, DVT proph w/SCDs 1. Toxic Metabolic Encephalopathy 2. Acute hypoxic-hypercapneic resp failure/COPD Exacerbation/ CA Pneumonia ? Pneumococcal 3. Elevated troponins prob due to demand ischemia 4. TEO/CKD 2/ Hyperkalemia 5. Obesity BMI 36.8 / Chronic resp failure on home O2 6. Other issues per previous notes PLAN: Cont supportive care On [facility] Vent Cont Atbx/Nebs/Steroids Cont tube feeds DVT/GI prophylaxis Review of Systems - Review of Systems Other: Cannot obtained due to sedation - Medications/Allergies Allergies/Adverse Reactions: Allergies Allergy/AdvReac Type Severity Reaction Status Date / Time No Known Allergies Allergy Unverified 02/16/18 18:43 Medications: Current Medications Acetaminophen (Tylenol) 650 mg MN Q6H PRN PRN Reason: Fever > 101 or Mild Pain 1-3 Acetaminophen (Tylenol) 650 mg PO Q4H PRN PRN Reason: Headache/Fever/Mild Pain (1-3) Albuterol/Ipratropium (Duoneb) 3 ml NEB [id number] PRN PRN Reason: SOB &/or Wheezing Albuterol/Ipratropium (Duoneb) 3 ml EZPAP [id number] JIMENEZ Last Admin: 02/20/18 18:24 Dose: 3 ml Bisacodyl (Dulcolax) 10 mg PO DAILYPRN PRN PRN Reason: Constipation Bisacodyl (Dulcolax) 10 mg [place] DAILYPRN PRN PRN Reason: Constipation Dextrose/Water (Dextrose 50%) 25 gm SLOW IVP PRN PRN PRN Reason: Hypoglycemia Enoxaparin Sodium (Lovenox) 40 mg SC 0900 [facility] Last Admin: 02/20/18 08:06 Dose: 40 mg Famotidine (Pepcid) 20 mg SLOW IVP Q12HR JIMENEZ Last Admin: 02/20/18 20:02 Dose: 20 mg Glucagon (Glucagon) 1 mg IM PRN PRN PRN Reason: Hypoglycemia Haloperidol Lactate (Haldol) 10 mg IM Q4H [facility] Last Admin: 02/20/18 20:02 Dose: 10 mg Fentanyl Citrate 2,000 mcg/ (Sodium Chloride) 100 mls @ 0 mls/hr IV INF JIMENEZ; Protocol Stop: 03/18/18 18:44 Last Admin: 02/20/18 12:40 Dose: 100 mls Fentanyl Citrate (Fentanyl Bolus) 250 mls @ 0 mls/hr IVPB PRN PRN PRN Reason: Breakthrough pain/agitation Stop: 03/18/18 21:43 Norepinephrine Bitartrate (Levophed) 250 mls @ 0 mls/hr IVPB PRN PRN; Protocol PRN Reason: To maintain MAP > 65 Potassium Chloride 40 meq/ (Sodium Chloride) 270 mls @ 135 mls/hr IVPB ASDIR PRN PRN Reason: FOR SERUM K+ 2.5 - 3.5 Potassium Chloride 40 meq/ (Device) 100 mls @ 50 mls/hr IVPB ASDIR PRN PRN Reason: FOR SERUM K+ 2.5 - 3.5 Magnesium Sulfate 1 gm/ Sodium (Chloride) 102 mls @ 102 mls/hr IV PRN PRN PRN Reason: MAG LEVEL 1.4 - 2.0 Magnesium Sulfate 2 gm/ Device 100 mls @ 100 mls/hr IVPB ASDIR PRN PRN Reason: MAGNESIUM < 1.4 Potassium Phosphate 9 mmol/ (Sodium Chloride) 103 mls @ 25.75 mls/hr IVPB ASDIR PRN PRN Reason: Phosphate 1.0-1.8 Potassium Phosphate 12 mmol/ (Sodium Chloride) 254 mls @ 63.5 mls/hr IV ASDIR PRN PRN Reason: Serum phosphate 0.5-0.9 Potassium Phosphate 15 mmol/ (Sodium Chloride) 255 mls @ 63.75 mls/hr IV ASDIR PRN PRN Reason: Serum Phos < 0.5 Azithromycin 500 mg/ Sodium (Chloride) 250 mls @ 250 mls/hr IVPB Q24HR [facility] Last Admin: 02/19/18 23:57 Dose: 250 mls Ceftriaxone Sodium 2 gm/ (Sodium Chloride) 100 mls @ 200 mls/hr IVPB Q24HR [facility] Last Admin: 02/20/18 20:02 Dose: 100 mls Dextrose/Water (D5w) 1,000 mls @ 0 mls/hr IV .Q0M PRN PRN Reason: Hypoglycemia Insulin Human Lispro (Humalog) 0 units SC .MILD SLIDING SCALE PRN PRN Reason: Mild Correctional Scale Last Admin: 02/20/18 16:14 Dose: 2 unit Lorazepam (Ativan) 2 mg SLOW IVP Q1H PRN PRN Reason: Breakthrough agitation Stop: 03/18/18 21:43 Last Admin: 02/20/18 15:25 Dose: 2 mg Magnesium Oxide (Magnesium Oxide) 400 mg PO BIDPRN PRN PRN Reason: FOR SERUM MAG 1.4 - 2.0 Magnesium Oxide (Magnesium Oxide) 800 mg PO PRN PRN PRN Reason: FOR SERUM MAG < 1.4 Methylprednisolone Sodium Succinate (Solu-Medrol) 40 mg IVP Q6HR [facility] Last Admin: 02/20/18 18:04 Dose: 40 mg Mineral Oil/White Petrolatum (Lacri-Lube Ointment) 0 gm EA EYE PRN PRN PRN Reason: Dry Eyes Miscellaneous Medication (Ventilator Sedation Protocol) 1 each FS ONE JIMENEZ Stop: 03/18/18 21:46 Miscellaneous Medication (Ccu Electrolyte Replacement) 1 each IVPB ONE JIMENEZ Stop: 03/18/18 21:42 Miscellaneous Medication (Pharmacy To Dose) 1 each IVPB PRN PRN PRN Reason: Pharmacy to dose Miscellaneous Medication (Phos-Nak) 1 pkt PO TIDPRN PRN PRN Reason: FOR PHOS LEVEL 1.0 - 1.8 Miscellaneous Medication (Phos-Nak) 2 pkt PO TIDPRN PRN PRN Reason: FOR PHOS LEVEL 0.5 - 1.0 Morphine Sulfate (Morphine) 2 mg SLOW IVP Q1H PRN PRN Reason: BREAKTHROUGH PAIN/AGITATION Stop: 03/18/18 21:43 Discontinue Previous Narcotic Pain Medications And Benzodiazepines 1 each FS .ONE JIMENEZ Stop: 03/18/18 21:43 Ccu Electrolyte (Replacement Protocol) 0 each FS PRN PRN PRN Reason: FOR ELECTROLYTE REPLACEMENT Potassium Chloride (K-Dur) 40 meq PO ASDIR PRN PRN Reason: FOR SERUM K+ 2.5 - 3.5 Potassium Chloride (Klor-Con) 40 meq PER TUBE ASDIR PRN PRN Reason: FOR SERUM K+ 2.5-3.5 Propofol (Diprivan) 1,000 mg IV INF PRN; Protocol PRN Reason: TO ACHIEVE GOAL RASS Stop: 03/18/18 21:43 Last Admin: 02/20/18 18:26 Dose: 1,000 mg Propofol (Diprivan Bolus) 20 mg IV Q5MIN PRN PRN Reason: BREAKTHROUGH AGITATION Stop: 03/18/18 21:43 Senna/Docusate Sodium (Senokot S) 2 tab PO BIDPRN PRN PRN Reason: Constipation Sodium Chloride (Flush - Normal Saline) 10 ml IVF Q12HR JIMENEZ Last Admin: 02/20/18 20:03 Dose: 10 ml Sodium Chloride (Flush - Normal Saline) 10 ml IVF PRN PRN PRN Reason: Saline Flush
[2018-02-20] MEDS: Azithromycin 500 MG in Sodium Chloride 0.9% 250 ML 250 ML IVPB SCH (23:02)
[2018-02-21] MEDS: Haloperidol Lactate 5 MG/ML VIAL IM SCH ×4 (00:16→20:17)
[2018-02-21] MEDS: Propofol 1,000 MG/100 ML VIAL IV PRN ×4 (03:52→17:43)
[2018-02-21] MEDS: HumaLOG 300 UNITS/3 ML VIAL SC PRN (05:20)
[2018-02-21 05:52] LABS: Band 2 % (5-11); Hemoglobin 11.5 g/dL (14.0-18.0); Lymphocytes 8 % (21-51); MDiff Complete? YES; Mean Corpuscular HGB CONC 32.1 g/dL (32.0-36.0); Mean Corpuscular Hemoglobin 31.8 pg (27.0-31.0); Mean Platelet Volume 6.8 fL (7.4-10.4); Metamyelocyte 1 % (0-0); Monocytes 5 % (0-10); Myelocyte 2 % (0-0); Neutrophil 82 % (42-75); Platelet Count 218 thou/uL (130-400); RBC Distribution Width 12.2 % (11.5-14.5); Red Blood Cell (RBC) Count 3.63 mill/uL (4.70-6.10); White Blood Cell (WBC) Count 19.4 thou/uL (4.8-10.8)
[2018-02-21 06:09] LABS: ALT (SGPT) 45 U/L (8-55); AST (SGOT) 32 U/L (5-34); Albumin 3.1 g/dL (3.4-4.8); Alkaline Phosphatase 50 U/L (40-150); Anion Gap 9 mmol/L (10-20); BUN (Urea Nitrogen) 34 mg/dL (8.4-25.7); Bilirubin, Total 0.4 mg/dL (0.2-1.2); Calc. Creatinine Clearance 145 mL/min (70-130); Carbon Dioxide 33 mmol/L (23-31); Chloride 101 mmol/L (98-107); Estimated GFR-MDRD Greater than 90; Globulin 2.7 g/dL (2.4-3.5); Glucose 161 mg/dL (80-115); Potassium 4.8 mmol/L (3.5-5.1); Protein, Total 5.8 g/dL (5.8-8.1); Sodium 138 mmol/L (136-145)
[2018-02-21] MEDS: fentaNYL Citrate/PF 2,000 MCG in Sodium Chloride 0.9% 60 ML IV SCH (07:21)
[2018-02-21] MEDS: Lorazepam 2 MG/ML VIAL SLOW IVP PRN ×2 (07:30→20:42)
[2018-02-21] MEDS: Enoxaparin Sodium 40 MG/0.4 ML SYRINGE SC SCH (08:16)
[2018-02-21] MEDS: Famotidine/PF 20 mg/2ml Vial SLOW IVP SCH ×2 (08:17→20:42)
--- NOTE | 2018-02-21 09:33 | RAD ---
CHEST 1 VIEW: Date: 02/21/18 HISTORY: Ventilated patient. COMPARISON: Radiograph from prior day. FINDINGS: The patient is intubated with endotracheal tube tip just below the level of the clavicles. Layering e ffusions. Bibasilar air space opacities. No pneumothorax. Cardiomegaly. IMPRESSION: No significant change given the patient rightward rotation. POS: [facility]
[2018-02-21] MEDS ORDERED: Furosemide 20 MG/2 ML VIAL SLOW IVP SCH (11:15)
--- NOTE | 2018-02-21 11:22 | PRG ---
DATE OF SERVICE: 02/21/2018 SERVICE: Pulmonary Medicine. INTERVAL HISTORY: The patient has excessive secretions. Outside of that, there were no reported ove rnight events. He cannot provide any additional elements of the history and requires propofol, fenta nyl, Haldol, and Ativan. As such, his neurologic status cannot really truthfully be assessed. PHYSICAL EXAMINATION: VITAL SIGNS: Afebrile, pulse 52, blood pressure 125/68, respirations 14, saturation 99% on 40% FIO2 and a PEEP of 5. GENERAL: Patient is intubated and sedated. HEENT: Normocephalic, atraumatic. Sclerae are white, conjunctivae pink. Oral mucosa is moist witho ut lesions. LUNGS: Decent air entry. There is no prolonged expiratory phase. Extensive rhonchi and crackles ar e both present. HEART: Bradycardic. Regular. ABDOMEN: Soft, nontender, nondistended. Bowel sounds are positive. MUSCULOSKELETAL: No cyanosis or clubbing. There is no pitting in the bilateral lower extremities. NEUROLOGIC: Grossly nonfocal. LABORATORY DATA: WBC 19.4, hemoglobin 11.5, platelets 218,000. Neutrophil count is 82% with normal band 2%. INR 1.1. PH 7.41, pCO2 of 53, pO2 85 corresponding to saturation 95%. Basic metabolic pro file and liver function studies are essentially unremarkable. Blood sugar ranges from 157-180. Trac heal swab is positive for Moraxella catarrhalis. Blood cultures x2 are unremarkable. IMAGING DATA: Chest x-ray demonstrates endotracheal tube is roughly 4 cm above the level of the madhav na. There is fairly significant rotation. There is a bibasilar pleural parenchymal opacification, c onsistent with bilateral effusions. ASSESSMENT: 1. Acute hypoxic respiratory failure. 2. Community-acquired pneumonia secondary to Moraxella catarrhalis. 3. Type 2 diabetes mellitus. 4. Metabolic encephalopathy. DISCUSSION AND PLAN: We will try to get him off of the fentanyl as this may be dropping his pulse. We will put him on Precedex. We will wean away the propofol and Haldol as tolerated. We will leave the Ativan on for as needed use. We will minimize IV fluids and introduce at a daily dose of Lasix. Pulmonary or Critical Care will continue to follow along in this location. A wean oxygen through ti me and hopefully in 24-48 hours, if mentation allows, he will be ready for spontaneous breathing tria l and possible extubation. CRITICAL CARE TIME: 30 minutes.
--- NOTE | 2018-02-21 19:19 | PDOC.PN ---
- Subjective Encounter Start Date: 02/21/18 Encounter Start Time: 11:00 Patient seen and examined for Resp failure. On [facility] Vent. No overnight events - Objective Resuscitation Status: Resuscitation Status FULL:Full Resuscitation MAR Reviewed: Yes Vital Signs & Weight: Vital Signs (12 hours) Temp Pulse Resp BP Pulse Ox 02/21/18 18:12 63 151/84 H 02/21/18 18:00 19 02/21/18 16:00 98.9 F 17 02/21/18 15:36 59 L 126/63 02/21/18 14:16 83 21 H 94 L 02/21/18 14:00 17 02/21/18 12:00 98.3 F 17 02/21/18 10:50 52 L 122/63 02/21/18 10:49 52 L 14 100 02/21/18 10:00 16 02/21/18 08:30 52 L 125/68 99 02/21/18 08:26 51 L 14 99 02/21/18 08:00 98.4 F 16 99 Weight Admit Weight 260 lb Weight 259 lb 14.8 oz Most Recent Monitor Data Heart Rate from ECG 67 NIBP 156/84 NIBP BP-Mean 108 Respiration from ECG 24 SpO2 94 I&O: 02/20/18 02/21/18 02/22/18 06:59 06:59 06:59 Intake Total 2367.5 2303.5 978 Output Total 2105 2020 2250 Balance 262.5 283.5 -1272 Result Diagrams: 02/21/18 05:10 02/21/18 05:10 Additional Labs: Accuchecks 02/21/18 02/21/18 02/21/18 17:53 11:53 05:18 POC Glucose 114 H 135 H 157 H 02/20/18 22:36 POC Glucose 171 H Radiology Reviewed by me: Yes (CXR - No new changes) EKG Reviewed by me: Yes (Tele SR) Phys Exam - Physical Examination Constitutional: NAD (Sedated on Vent) Respiratory: no wheezing Bibasilar rales with Scat rhonchi Cardiovascular: RRR, no rub Gastrointestinal: soft, positive bowel sounds Musculoskeletal: no edema Dx/Plan - Plan DVT proph w/lovenox, DVT proph w/SCDs 1. Toxic Metabolic Encephalopathy 2. Acute hypoxic-hypercapneic resp failure/COPD Exacerbation/ CA Pneumonia ? Pneumococcal 3. Elevated troponins prob due to demand ischemia 4. TEO/CKD 2/ Hyperkalemia - improving 5. Obesity BMI 36.8 / Chronic resp failure on home O2 6. Other issues per previous notes PLAN: Cont Mech Vent Cont Atbx/Nebs/Steroids Cont tube feeds DVT/GI prophylaxis Cont supportive care Review of Systems - Review of Systems Other: Cannot obtain due to current mentation - Medications/Allergies Allergies/Adverse Reactions: Allergies Allergy/AdvReac Type Severity Reaction Status Date / Time No Known Allergies Allergy Unverified 02/16/18 18:43 Medications: Current Medications Acetaminophen (Tylenol) 650 mg [place] Q6H PRN PRN Reason: Fever > 101 or Mild Pain 1-3 Acetaminophen (Tylenol) 650 mg PO Q4H PRN PRN Reason: Headache/Fever/Mild Pain (1-3) Albuterol/Ipratropium (Duoneb) 3 ml NEB [id number] PRN PRN Reason: SOB &/or Wheezing Albuterol/Ipratropium (Duoneb) 3 ml EZPAP [id number] [facility] Last Admin: 02/21/18 18:10 Dose: 3 ml Bisacodyl (Dulcolax) 10 mg PO DAILYPRN PRN PRN Reason: Constipation Bisacodyl (Dulcolax) 10 mg [place] DAILYPRN PRN PRN Reason: Constipation Dextrose/Water (Dextrose 50%) 25 gm SLOW IVP PRN PRN PRN Reason: Hypoglycemia Enoxaparin Sodium (Lovenox) 40 mg SC 0900 [facility] Last Admin: 02/21/18 08:16 Dose: 40 mg Famotidine (Pepcid) 20 mg SLOW IVP Q12HR [facility] Last Admin: 02/21/18 08:17 Dose: 20 mg Furosemide (Lasix) 20 mg SLOW IVP 0600 [facility] Glucagon (Glucagon) 1 mg IM PRN PRN PRN Reason: Hypoglycemia Fentanyl Citrate (Fentanyl Bolus) 250 mls @ 0 mls/hr IVPB PRN PRN PRN Reason: Breakthrough pain/agitation Stop: 03/18/18 21:43 Potassium Chloride 40 meq/ (Sodium Chloride) 270 mls @ 135 mls/hr IVPB ASDIR PRN PRN Reason: FOR SERUM K+ 2.5 - 3.5 Potassium Chloride 40 meq/ (Device) 100 mls @ 50 mls/hr IVPB ASDIR PRN PRN Reason: FOR SERUM K+ 2.5 - 3.5 Magnesium Sulfate 1 gm/ Sodium (Chloride) 102 mls @ 102 mls/hr IV PRN PRN PRN Reason: MAG LEVEL 1.4 - 2.0 Magnesium Sulfate 2 gm/ Device 100 mls @ 100 mls/hr IVPB ASDIR PRN PRN Reason: MAGNESIUM < 1.4 Potassium Phosphate 9 mmol/ (Sodium Chloride) 103 mls @ 25.75 mls/hr IVPB ASDIR PRN PRN Reason: Phosphate 1.0-1.8 Potassium Phosphate 12 mmol/ (Sodium Chloride) 254 mls @ 63.5 mls/hr IV ASDIR PRN PRN Reason: Serum phosphate 0.5-0.9 Potassium Phosphate 15 mmol/ (Sodium Chloride) 255 mls @ 63.75 mls/hr IV ASDIR PRN PRN Reason: Serum Phos < 0.5 Azithromycin 500 mg/ Sodium (Chloride) 250 mls @ 250 mls/hr IVPB Q24HR [facility] Last Admin: 02/20/18 23:02 Dose: 250 mls Ceftriaxone Sodium 2 gm/ (Sodium Chloride) 100 mls @ 200 mls/hr IVPB Q24HR [facility] Last Admin: 02/20/18 20:02 Dose: 100 mls Dextrose/Water (D5w) 1,000 mls @ 0 mls/hr IV .Q0M PRN PRN Reason: Hypoglycemia Dexmedetomidine HCl 200 mcg/ (Sodium Chloride) 50 mls @ 0 mls/hr IVPB INF JIMENEZ; Protocol Last Admin: 02/21/18 15:41 Dose: 50 mls Insulin Human Lispro (Humalog) 0 units SC .MILD SLIDING SCALE PRN PRN Reason: Mild Correctional Scale Last Admin: 02/21/18 05:20 Dose: 2 unit Lorazepam (Ativan) 2 mg SLOW IVP Q1H PRN PRN Reason: Breakthrough agitation Stop: 03/18/18 21:43 Last Admin: 02/21/18 07:30 Dose: 2 mg Magnesium Oxide (Magnesium Oxide) 400 mg PO BIDPRN PRN PRN Reason: FOR SERUM MAG 1.4 - 2.0 Magnesium Oxide (Magnesium Oxide) 800 mg PO PRN PRN PRN Reason: FOR SERUM MAG < 1.4 Mineral Oil/White Petrolatum (Lacri-Lube Ointment) 0 gm EA EYE PRN PRN PRN Reason: Dry Eyes Miscellaneous Medication (Ventilator Sedation Protocol) 1 each FS ONE JIMENEZ Stop: 03/18/18 21:46 Miscellaneous Medication (Ccu Electrolyte Replacement) 1 each IVPB ONE JIMENEZ Stop: 03/18/18 21:42 Miscellaneous Medication (Pharmacy To Dose) 1 each IVPB PRN PRN PRN Reason: Pharmacy to dose Miscellaneous Medication (Phos-Nak) 1 pkt PO TIDPRN PRN PRN Reason: FOR PHOS LEVEL 1.0 - 1.8 Miscellaneous Medication (Phos-Nak) 2 pkt PO TIDPRN PRN PRN Reason: FOR PHOS LEVEL 0.5 - 1.0 Discontinue Previous Narcotic Pain Medications And Benzodiazepines 1 each FS .ONE [facility] Stop: 03/18/18 21:43 Ccu Electrolyte (Replacement Protocol) 0 each FS PRN PRN PRN Reason: FOR ELECTROLYTE REPLACEMENT Potassium Chloride (K-Dur) 40 meq PO ASDIR PRN PRN Reason: FOR SERUM K+ 2.5 - 3.5 Potassium Chloride (Klor-Con) 40 meq PER TUBE ASDIR PRN PRN Reason: FOR SERUM K+ 2.5-3.5 Prednisone (Prednisone) 40 mg PO QAM[facility] Propofol (Diprivan) 1,000 mg IV INF PRN; Protocol PRN Reason: TO ACHIEVE GOAL RASS Stop: 03/18/18 21:43 Last Admin: 02/21/18 17:43 Dose: 1,000 mg Propofol (Diprivan Bolus) 20 mg IV Q5MIN PRN PRN Reason: BREAKTHROUGH AGITATION Stop: 03/18/18 21:43 Senna/Docusate Sodium (Senokot S) 2 tab PO BIDPRN PRN PRN Reason: Constipation Sodium Chloride (Flush - Normal Saline) 10 ml IVF Q12HR [facility] Last Admin: 02/21/18 08:16 Dose: 10 ml Sodium Chloride (Flush - Normal Saline) 10 ml IVF PRN PRN PRN Reason: Saline Flush
[2018-02-21] MEDS: cefTRIAXone\\ROCEPHIN 2 GM in Sodium Chloride 0.9% 100 ML IVPB SCH (20:42)
[2018-02-21] MEDS: Azithromycin 500 MG in Sodium Chloride 0.9% 250 ML 250 ML IVPB SCH (23:23)
[2018-02-22] MEDS: Propofol 1,000 MG/100 ML VIAL IV PRN ×2 (01:00→08:47)
[2018-02-22 04:34] LABS: ALT (SGPT) 52 U/L (8-55); AST (SGOT) 31 U/L (5-34); Albumin 3.1 g/dL (3.4-4.8); Alkaline Phosphatase 56 U/L (40-150); Anion Gap 11 mmol/L (10-20); BUN (Urea Nitrogen) 33 mg/dL (8.4-25.7); Bilirubin, Total 0.4 mg/dL (0.2-1.2); Calc. Creatinine Clearance 151 mL/min (70-130); Calcium 9.1 mg/dL (7.8-10.44); Carbon Dioxide 32 mmol/L (23-31); Chloride 99 mmol/L (98-107); Estimated GFR-MDRD Greater than 90; Glucose 119 mg/dL (80-115); Potassium 4.6 mmol/L (3.5-5.1); Protein, Total 6.1 g/dL (5.8-8.1); Sodium 137 mmol/L (136-145)
[2018-02-22 04:41] LABS: Band 6 % (5-11); Hemoglobin 12.6 g/dL (14.0-18.0); Lymphocytes 19 % (21-51); MDiff Complete? YES; Mean Corpuscular HGB CONC 32.2 g/dL (32.0-36.0); Mean Corpuscular Hemoglobin 31.6 pg (27.0-31.0); Mean Corpuscular Volume 98.1 fL (78.0-98.0); Mean Platelet Volume 7.3 fL (7.4-10.4); Monocytes 9 % (0-10); Neutrophil 66 % (42-75); Platelet Count 218 thou/uL (130-400); RBC Distribution Width 12.3 % (11.5-14.5); White Blood Cell (WBC) Count 20.8 thou/uL (4.8-10.8)
[2018-02-22] MEDS: Furosemide 20 MG/2 ML VIAL SLOW IVP SCH (05:10)
[2018-02-22] MEDS: Enoxaparin Sodium 40 MG/0.4 ML SYRINGE SC SCH (08:46)
[2018-02-22] MEDS: predniSONE 20 MG TAB PO SCH (08:46)
[2018-02-22] MEDS: Famotidine/PF 20 mg/2ml Vial SLOW IVP SCH ×2 (08:47→20:45)
--- NOTE | 2018-02-22 09:39 | RAD ---
CHEST 1 VIEW: Date: 02/22/18 HISTORY: Ventilated patient. COMPARISON: Radiograph prior day. FINDINGS: Patient is intubated with endotracheal tube tip in good position. Enteric tube tip below the diaphrag m, although out of field of view. Left basilar opacity is similar. Small effusions. No pneumothorax. Cardiac silhouette is similar. IMPRESSION: Similar appearance of chest. POS: [facility]
[2018-02-22] MEDS: HumaLOG 300 UNITS/3 ML VIAL SC PRN ×2 (12:01→17:13)
--- NOTE | 2018-02-22 12:48 | PRG ---
DATE OF SERVICE: 02/22/2018 SERVICE: Pulmonary Medicine. INTERVAL HISTORY: The patient is doing absolutely fantastic from a mentation standpoint. His oxygen requirements have improved as well. He cannot provide any additional elements of the history, becau se he is requiring a little bit of sedation and he is intubated. Nursing reports no overnight events . PHYSICAL EXAMINATION: VITAL SIGNS: Afebrile, pulse 91, blood pressure 164/83, respirations 21, saturation 93, on 40% FiO2 and a PEEP of 5. GENERAL: The patient is intubated and sedated. HEENT: Normocephalic, atraumatic. Sclerae are white, conjunctivae pink. Oral and nasal mucosa is m oist without lesions. LUNGS: Excellent air entry. There is no prolonged expiratory phase or wheezing identified. HEART: Normal rate and regular. ABDOMEN: Soft, nontender, nondistended. Bowel sounds are positive. MUSCULOSKELETAL: No cyanosis or clubbing. There is diffuse 1-2+ pitting throughout. GENITOURINARY: Richardson catheter in place. NEUROLOGIC: Grossly nonfocal. LABORATORY DATA: WBC 20.8, hemoglobin 12.6, platelets 218,000. Differential is normalizing. INR 1. 1. Basic metabolic profile and liver function studies were essentially unremarkable. Bicarbonate is 32 and stable. Anion gap is normal. Liver function studies were also unremarkable. IMAGING: Chest x-ray demonstrates left basilar opacification is stable with small bilateral pleural effusions. No pneumothorax is identified. Endotracheal tube is in excellent position. Enteric cath eter courses well below the level of the diaphragm in the midline. ASSESSMENT: 1. Acute hypoxic respiratory failure. 2. Community-acquired pneumonia secondary to Moraxella catarrhalis. 3. Type 2 diabetes mellitus. 4. Metabolic encephalopathy, DISCUSSION AND PLAN: The patient will be continued on his Precedex drip. We will wean away the prop ofol as tolerated. We will continue p.r.n. Ativan if needed. If he meets criteria, a spontaneous br eathing trial and extubation will be considered today. CRITICAL CARE TIME: 30 minutes.
[2018-02-22] MEDS ORDERED: Furosemide 20 MG/2 ML VIAL SLOW IVP SCH (14:00)
[2018-02-22] MEDS: cefTRIAXone\\ROCEPHIN 2 GM in Sodium Chloride 0.9% 100 ML IVPB SCH (20:45)
--- NOTE | 2018-02-22 22:29 | PDOC.PN ---
- Subjective Encounter Start Date: 02/22/18 Encounter Start Time: 11:30 Patient seen and examined for Resp failure.On Vent - CPAP. No overnight events - Objective Resuscitation Status: Resuscitation Status FULL:Full Resuscitation MAR Reviewed: Yes Vital Signs & Weight: Vital Signs (12 hours) Temp Pulse Resp BP Pulse Ox 02/22/18 18:44 81 23 H 7 L 02/22/18 17:50 92 20 92 L 02/22/18 16:25 91 138/88 02/22/18 16:00 100 F H 21 H 02/22/18 14:29 96 14 95 02/22/18 14:00 18 02/22/18 12:41 95 166/83 H 02/22/18 12:00 100.1 F H 18 Weight Admit Weight 260 lb Weight 259 lb 14.8 oz Most Recent Monitor Data Heart Rate from ECG 80 NIBP 157/73 NIBP BP-Mean 101 Respiration from ECG 27 SpO2 93 I&O: 02/21/18 02/22/18 02/23/18 06:59 06:59 06:59 Intake Total 2303.5 2543 864 Output Total 2019 2718 1626 Balance 283.5 -1448 -8615 Result Diagrams: 02/22/18 03:46 02/22/18 03:46 Additional Labs: Accuchecks 02/22/18 02/22/18 02/22/18 20:50 17:10 11:25 POC Glucose 108 182 H 158 H 02/21/18 23:20 POC Glucose 114 H Phys Exam - Physical Examination Constitutional: NAD Respiratory: no wheezing, no rhonchi Bibasilar rales Cardiovascular: RRR, no rub Gastrointestinal: soft Musculoskeletal: no edema Dx/Plan - Plan DVT proph w/lovenox, DVT proph w/SCDs 1. Toxic Metabolic Encephalopathy 2. Acute hypoxic-hypercapneic resp failure/COPD Exacerbation/ CA Pneumonia due to Moraxella 3. Elevated troponins prob due to demand ischemia 4. TEO/CKD 2/ Hyperkalemia - improving 5. Obesity BMI 36.8 / Chronic resp failure on home O2 6. Other issues per previous notes PLAN: Cont Mech Vent - Prob Extubate later today Cont Atbx/Nebs/Steroids Cont tube feeds Cont supportive care DVT/GI prophylaxis Review of Systems - Review of Systems Other: Cannot obtain due to current mentation - Medications/Allergies Allergies/Adverse Reactions: Allergies Allergy/AdvReac Type Severity Reaction Status Date / Time No Known Allergies Allergy Unverified 02/16/18 18:43 Medications: Current Medications Acetaminophen (Tylenol) 650 mg [place] Q6H PRN PRN Reason: Fever > 101 or Mild Pain 1-3 Acetaminophen (Tylenol) 650 mg PO Q4H PRN PRN Reason: Headache/Fever/Mild Pain (1-3) Albuterol/Ipratropium (Duoneb) 3 ml NEB [id number] PRN PRN Reason: SOB &/or Wheezing Albuterol/Ipratropium (Duoneb) 3 ml EZPAP [id number] [facility] Last Admin: 02/22/18 18:44 Dose: 3 ml Bisacodyl (Dulcolax) 10 mg PO DAILYPRN PRN PRN Reason: Constipation Bisacodyl (Dulcolax) 10 mg [place] DAILYPRN PRN PRN Reason: Constipation Dextrose/Water (Dextrose 50%) 25 gm SLOW IVP PRN PRN PRN Reason: Hypoglycemia Enoxaparin Sodium (Lovenox) 40 mg SC 0900 [facility] Last Admin: 02/22/18 08:46 Dose: 40 mg Famotidine (Pepcid) 20 mg SLOW IVP Q12HR [facility] Last Admin: 02/22/18 20:45 Dose: 20 mg Furosemide (Lasix) 20 mg SLOW IVP 0600 [facility] Last Admin: 02/22/18 05:10 Dose: 20 mg Glucagon (Glucagon) 1 mg IM PRN PRN PRN Reason: Hypoglycemia Fentanyl Citrate (Fentanyl Bolus) 250 mls @ 0 mls/hr IVPB PRN PRN PRN Reason: Breakthrough pain/agitation Stop: 03/18/18 21:43 Potassium Chloride 40 meq/ (Sodium Chloride) 270 mls @ 135 mls/hr IVPB ASDIR PRN PRN Reason: FOR SERUM K+ 2.5 - 3.5 Potassium Chloride 40 meq/ (Device) 100 mls @ 50 mls/hr IVPB ASDIR PRN PRN Reason: FOR SERUM K+ 2.5 - 3.5 Magnesium Sulfate 1 gm/ Sodium (Chloride) 102 mls @ 102 mls/hr IV PRN PRN PRN Reason: MAG LEVEL 1.4 - 2.0 Magnesium Sulfate 2 gm/ Device 100 mls @ 100 mls/hr IVPB ASDIR PRN PRN Reason: MAGNESIUM < 1.4 Potassium Phosphate 9 mmol/ (Sodium Chloride) 103 mls @ 25.75 mls/hr IVPB ASDIR PRN PRN Reason: Phosphate 1.0-1.8 Potassium Phosphate 12 mmol/ (Sodium Chloride) 254 mls @ 63.5 mls/hr IV ASDIR PRN PRN Reason: Serum phosphate 0.5-0.9 Potassium Phosphate 15 mmol/ (Sodium Chloride) 255 mls @ 63.75 mls/hr IV ASDIR PRN PRN Reason: Serum Phos < 0.5 Azithromycin 500 mg/ Sodium (Chloride) 250 mls @ 250 mls/hr IVPB Q24HR [facility] Last Admin: 02/21/18 23:23 Dose: 250 mls Ceftriaxone Sodium 2 gm/ (Sodium Chloride) 100 mls @ 200 mls/hr IVPB Q24HR [facility] Last Admin: 02/22/18 20:45 Dose: 100 mls Dextrose/Water (D5w) 1,000 mls @ 0 mls/hr IV .Q0M PRN PRN Reason: Hypoglycemia Dexmedetomidine HCl 400 mcg/ (Sodium Chloride) 100 mls @ 0 mls/hr IVPB INF [facility] ; Protocol Last Admin: 02/22/18 19:39 Dose: 100 mls Insulin Human Lispro (Humalog) 0 units SC .MILD SLIDING SCALE PRN PRN Reason: Mild Correctional Scale Last Admin: 02/22/18 17:13 Dose: 2 unit Lorazepam (Ativan) 2 mg SLOW IVP Q1H PRN PRN Reason: Breakthrough agitation Stop: 03/18/18 21:43 Last Admin: 02/21/18 20:42 Dose: 2 mg Magnesium Oxide (Magnesium Oxide) 400 mg PO BIDPRN PRN PRN Reason: FOR SERUM MAG 1.4 - 2.0 Magnesium Oxide (Magnesium Oxide) 800 mg PO PRN PRN PRN Reason: FOR SERUM MAG < 1.4 Mineral Oil/White Petrolatum (Lacri-Lube Ointment) 0 gm EA EYE PRN PRN PRN Reason: Dry Eyes Miscellaneous Medication (Ventilator Sedation Protocol) 1 each FS ONE [facility] Stop: 03/18/18 21:46 Miscellaneous Medication (Ccu Electrolyte Replacement) 1 each IVPB ONE [facility] Stop: 03/18/18 21:42 Miscellaneous Medication (Pharmacy To Dose) 1 each IVPB PRN PRN PRN Reason: Pharmacy to dose Miscellaneous Medication (Phos-Nak) 1 pkt PO TIDPRN PRN PRN Reason: FOR PHOS LEVEL 1.0 - 1.8 Miscellaneous Medication (Phos-Nak) 2 pkt PO TIDPRN PRN PRN Reason: FOR PHOS LEVEL 0.5 - 1.0 Discontinue Previous Narcotic Pain Medications And Benzodiazepines 1 each FS .ONE [facility] Stop: 03/18/18 21:43 Ccu Electrolyte (Replacement Protocol) 0 each FS PRN PRN PRN Reason: FOR ELECTROLYTE REPLACEMENT Potassium Chloride (K-Dur) 40 meq PO ASDIR PRN PRN Reason: FOR SERUM K+ 2.5 - 3.5 Potassium Chloride (Klor-Con) 40 meq PER TUBE ASDIR PRN PRN Reason: FOR SERUM K+ 2.5-3.5 [facility]) [facility] Last Admin: 02/22/18 08:46 Dose: 40 mg Propofol (Diprivan) 1,000 mg IV INF PRN; Protocol PRN Reason: TO ACHIEVE GOAL RASS Stop: 03/18/18 21:43 Last Admin: 02/22/18 08:47 Dose: 1,000 mg Senna/Docusate Sodium (Senokot S) 2 tab PO BIDPRN PRN PRN Reason: Constipation Sodium Chloride (Flush - Normal Saline) 10 ml IVF Q12HR [facility] Last Admin: 02/22/18 20:46 Dose: 10 ml Sodium Chloride (Flush - Normal Saline) 10 ml IVF PRN PRN PRN Reason: Saline Flush
[2018-02-22] MEDS: Azithromycin 500 MG in Sodium Chloride 0.9% 250 ML 250 ML IVPB SCH (23:55)
[2018-02-23 04:17] LABS: Anion Gap 11 mmol/L (10-20); BUN (Urea Nitrogen) 27 mg/dL (8.4-25.7); Calc. Creatinine Clearance 145 mL/min (70-130); Calcium 9.1 mg/dL (7.8-10.44); Carbon Dioxide 32 mmol/L (23-31); Chloride 99 mmol/L (98-107); Estimated GFR-MDRD Greater than 90; Glucose 124 mg/dL (80-115); Magnesium 2.3 mg/dL (1.6-2.6); Phosphorus 3.4 mg/dL (2.3-4.7); Sodium 138 mmol/L (136-145)
[2018-02-23 04:37] LABS: Hemoglobin 13.6 g/dL (14.0-18.0); Mean Corpuscular Volume 96.8 fL (78.0-98.0); Mean Platelet Volume 6.8 fL (7.4-10.4); Platelet Count 239 thou/uL (130-400); RBC Distribution Width 12.6 % (11.5-14.5); Red Blood Cell (RBC) Count 4.24 mill/uL (4.70-6.10)
[2018-02-23 04:43] LABS: Band 1 % (5-11); Lymphocytes 19 % (21-51); MDiff Complete? YES; Metamyelocyte 1 % (0-0); Monocytes 4 % (0-10); Myelocyte 2 % (0-0); Neutrophil 73 % (42-75)
[2018-02-23] MEDS: Furosemide 20 MG/2 ML VIAL SLOW IVP SCH (06:19)
[2018-02-23] MEDS: predniSONE 20 MG TAB PO SCH (08:00)
--- NOTE | 2018-02-23 08:25 | RAD ---
SINGLE VIEW OF THE CHEST: COMPARISON: 02/22/2018. HISTORY: Daily x-ray on CCU patient on ventilator with respiratory distress. FINDINGS: A single view of the chest shows an enlarged but stable cardiomediastinal silhouette. He endotrachea l tube and NG tube have been removed. There is no evidence of consolidation or mass. There may be a trace amount of fluid in the inferior aspect of the right thorax. IMPRESSION: Possible small right pleural effusion. POS: [facility]
[2018-02-23] MEDS: Famotidine/PF 20 mg/2ml Vial SLOW IVP SCH ×2 (09:40→20:39)
[2018-02-23] MEDS: Enoxaparin Sodium 40 MG/0.4 ML SYRINGE SC SCH (09:40)
--- NOTE | 2018-02-23 13:54 | PRG ---
DATE OF SERVICE: 02/23/2018 SUBJECTIVE: Mr. Johnson was extubated yesterday. He is stable. He is protecting his airways, in no distress. He is extremely weak. OBJECTIVE: VITAL SIGNS: Heart rate is in the 80s, respiratory rate is in the 20s, oximetry is 97 on 2 liters, b lood pressure 134/73. Intake and output was negative 3327. LUNGS: Remarkable for coarse equal breath sounds with crackles in both bases. HEART: Regular rhythm. ABDOMEN: Soft. EXTREMITIES: Without asymmetry. LABORATORY DATA: White count 24, hemoglobin 13.6, platelets 239,000. Sodium 138, potassium 4, chlor kerri 99, bicarbonate 32, BUN 27, creatinine 0.79. IMPRESSION: 1. Pneumonia, community acquired. 2. Underlying severe chronic obstructive pulmonary disease. 3. Chronic respiratory failure with hypoxemia, on oxygen at home. 4. Chronic hypercarbia. 5. Diabetes. 6. Encephalopathy that is improved. 7. Reported history of posttraumatic stress. He was extubated, on Precedex. He will be weaned off Precedex today. He will remain in the Critical Care Unit.
[2018-02-23] MEDS: cefTRIAXone\\ROCEPHIN 2 GM in Sodium Chloride 0.9% 100 ML IVPB SCH (20:38)
[2018-02-23] MEDS: Azithromycin 500 MG in Sodium Chloride 0.9% 250 ML 250 ML IVPB SCH (22:59)
--- NOTE | 2018-02-23 23:38 | PDOC.PN ---
- Subjective Encounter Start Date: 02/23/18 Encounter Start Time: 12:00 Patient seen and examined for resp failure. Extubated. No new complaints. No overnight events - Objective Resuscitation Status: Resuscitation Status FULL:Full Resuscitation MAR Reviewed: Yes Vital Signs & Weight: Vital Signs (12 hours) Temp Pulse Resp Pulse Ox 02/23/18 20:00 99.2 F 97 02/23/18 18:16 87 22 H 97 02/23/18 16:00 99.3 F 02/23/18 13:17 86 28 H 97 02/23/18 12:00 99.2 F Weight Admit Weight 260 lb Weight 252 lb 6.868 oz Most Recent Monitor Data Heart Rate from ECG 85 NIBP 147/71 NIBP BP-Mean 96 Respiration from ECG 24 SpO2 97 I&O: 02/22/18 02/23/18 02/24/18 06:59 06:59 06:59 Intake Total 2543 1948 401 Output Total 4224 5275 1825 [id number] Result Diagrams: 02/23/18 03:46 02/23/18 03:46 Additional Labs: Accuchecks 02/23/18 02/23/18 02/23/18 22:23 16:41 12:31 POC Glucose 119 H 121 H 135 H 02/23/18 03:45 POC Glucose 116 H EKG Reviewed by me: Yes (Tele SR) Phys Exam - Physical Examination Constitutional: NAD Respiratory: no wheezing B/L rhonchi Cardiovascular: RRR, no rub Gastrointestinal: soft, non-tender, positive bowel sounds Dx/Plan - Plan DVT proph w/lovenox, DVT proph w/SCDs 1. Toxic Metabolic Encephalopathy 2. Acute hypoxic-hypercapneic resp failure/COPD Exacerbation/ CA Pneumonia due to Moraxella - Extubated 02/22 3. Elevated troponins prob due to demand ischemia 4. TEO/CKD 2/ Hyperkalemia - improving 5. Obesity BMI 36.8 / Chronic resp failure on home O2 6. Other issues per previous notes PLAN: Cont Atbx/Nebs/Steroids PT Eval Cont Nebs/Diuretics AM labs Cont supportive care DVT/GI prophylaxis Review of Systems - Review of Systems Cardiovascular: negative: chest pain, palpitations, orthopnea, paroxysmal nocturnal dyspnea, edema, light headedness, other Gastrointestinal: negative: Nausea, Vomiting, Abdominal Pain, Diarrhea, Constipation, Melena, Hematochezia, Other - Medications/Allergies Allergies/Adverse Reactions: Allergies Allergy/AdvReac Type Severity Reaction Status Date / Time No Known Allergies Allergy Unverified 02/16/18 18:43 Medications: Current Medications Acetaminophen (Tylenol) 650 mg RI Q6H PRN PRN Reason: Fever > 101 or Mild Pain 1-3 Acetaminophen (Tylenol) 650 mg PO Q4H PRN PRN Reason: Headache/Fever/Mild Pain (1-3) Albuterol/Ipratropium (Duoneb) 3 ml NEB [id number] PRN PRN Reason: SOB &/or Wheezing Albuterol/Ipratropium (Duoneb) 3 ml EZPAP [id number] [facility] Last Admin: 02/23/18 18:16 Dose: 3 ml Bisacodyl (Dulcolax) 10 mg PO DAILYPRN PRN PRN Reason: Constipation Bisacodyl (Dulcolax) 10 mg RI DAILYPRN PRN PRN Reason: Constipation Dextrose/Water (Dextrose 50%) 25 gm SLOW IVP PRN PRN PRN Reason: Hypoglycemia Enoxaparin Sodium (Lovenox) 40 mg SC 0900 [facility] Last Admin: 02/23/18 09:40 Dose: 40 mg Famotidine (Pepcid) 20 mg SLOW IVP Q12HR [facility] Last Admin: 02/23/18 20:39 Dose: 20 mg Furosemide (Lasix) 20 mg SLOW IVP 0600 [facility] Last Admin: 02/23/18 06:19 Dose: 20 mg Glucagon (Glucagon) 1 mg IM PRN PRN PRN Reason: Hypoglycemia Fentanyl Citrate (Fentanyl Bolus) 250 mls @ 0 mls/hr IVPB PRN PRN PRN Reason: Breakthrough pain/agitation Stop: 03/18/18 21:43 Potassium Chloride 40 meq/ (Sodium Chloride) 270 mls @ 135 mls/hr IVPB ASDIR PRN PRN Reason: FOR SERUM K+ 2.5 - 3.5 Potassium Chloride 40 meq/ (Device) 100 mls @ 50 mls/hr IVPB ASDIR PRN PRN Reason: FOR SERUM K+ 2.5 - 3.5 Magnesium Sulfate 1 gm/ Sodium (Chloride) 102 mls @ 102 mls/hr IV PRN PRN PRN Reason: MAG LEVEL 1.4 - 2.0 Magnesium Sulfate 2 gm/ Device 100 mls @ 100 mls/hr IVPB ASDIR PRN PRN Reason: MAGNESIUM < 1.4 Potassium Phosphate 9 mmol/ (Sodium Chloride) 103 mls @ 25.75 mls/hr IVPB ASDIR PRN PRN Reason: Phosphate 1.0-1.8 Potassium Phosphate 12 mmol/ (Sodium Chloride) 254 mls @ 63.5 mls/hr IV ASDIR PRN PRN Reason: Serum phosphate 0.5-0.9 Potassium Phosphate 15 mmol/ (Sodium Chloride) 255 mls @ 63.75 mls/hr IV ASDIR PRN PRN Reason: Serum Phos < 0.5 Azithromycin 500 mg/ Sodium (Chloride) 250 mls @ 250 mls/hr IVPB Q24HR [facility] Last Admin: 02/23/18 22:59 Dose: 250 mls Ceftriaxone Sodium 2 gm/ (Sodium Chloride) 100 mls @ 200 mls/hr IVPB Q24HR [facility] Last Admin: 02/23/18 20:38 Dose: 100 mls Dextrose/Water (D5w) 1,000 mls @ 0 mls/hr IV .Q0M PRN PRN Reason: Hypoglycemia Dexmedetomidine HCl 400 mcg/ (Sodium Chloride) 100 mls @ 0 mls/hr IVPB INF [facility] ; Protocol Last Admin: 02/23/18 18:15 Dose: 100 mls Insulin Human Lispro (Humalog) 0 units SC .MILD SLIDING SCALE PRN PRN Reason: Mild Correctional Scale Last Admin: 02/22/18 17:13 Dose: 2 unit Lorazepam (Ativan) 2 mg SLOW IVP Q1H PRN PRN Reason: Breakthrough agitation Stop: 03/18/18 21:43 Last Admin: 02/21/18 20:42 Dose: 2 mg Magnesium Oxide (Magnesium Oxide) 400 mg PO BIDPRN PRN PRN Reason: FOR SERUM MAG 1.4 - 2.0 Magnesium Oxide (Magnesium Oxide) 800 mg PO PRN PRN PRN Reason: FOR SERUM MAG < 1.4 Mineral Oil/White Petrolatum (Lacri-Lube Ointment) 0 gm EA EYE PRN PRN PRN Reason: Dry Eyes Miscellaneous Medication (Ventilator Sedation Protocol) 1 each FS ONE [facility] Stop: 03/18/18 21:46 Miscellaneous Medication (Ccu Electrolyte Replacement) 1 each IVPB ONE [facility] Stop: 03/18/18 21:42 Miscellaneous Medication (Pharmacy To Dose) 1 each IVPB PRN PRN PRN Reason: Pharmacy to dose Miscellaneous Medication (Phos-Nak) 1 pkt PO TIDPRN PRN PRN Reason: FOR PHOS LEVEL 1.0 - 1.8 Miscellaneous Medication (Phos-Nak) 2 pkt PO TIDPRN PRN PRN Reason: FOR PHOS LEVEL 0.5 - 1.0 Discontinue Previous Narcotic Pain Medications And Benzodiazepines 1 each FS .ONE [facility] Stop: 03/18/18 21:43 Ccu Electrolyte (Replacement Protocol) 0 each FS PRN PRN PRN Reason: FOR ELECTROLYTE REPLACEMENT Potassium Chloride (K-Dur) 40 meq PO ASDIR PRN PRN Reason: FOR SERUM K+ 2.5 - 3.5 Potassium Chloride (Klor-Con) 40 meq PER TUBE ASDIR PRN PRN Reason: FOR SERUM K+ 2.5-3.5 Prednisone (Prednisone) 40 mg PO QA-[facility] Last Admin: 02/23/18 08:00 Dose: Not Given Senna/Docusate Sodium (Senokot S) 2 tab PO BIDPRN PRN PRN Reason: Constipation Sodium Chloride (Flush - Normal Saline) 10 ml IVF Q12HR [facility] Last Admin: 02/23/18 20:39 Dose: 10 ml Sodium Chloride (Flush - Normal Saline) 10 ml IVF PRN PRN PRN Reason: Saline Flush
[2018-02-24 04:26] LABS: Anion Gap 12 mmol/L (10-20); BUN (Urea Nitrogen) 25 mg/dL (8.4-25.7); Calc. Creatinine Clearance 148 mL/min (70-130); Calcium 9.4 mg/dL (7.8-10.44); Carbon Dioxide 30 mmol/L (23-31); Chloride 102 mmol/L (98-107); Estimated GFR-MDRD Greater than 90; Glucose 126 mg/dL (80-115); Magnesium 2.4 mg/dL (1.6-2.6); Phosphorus 3.8 mg/dL (2.3-4.7); Potassium 4.2 mmol/L (3.5-5.1); Sodium 140 mmol/L (136-145)
[2018-02-24 05:18] LABS: Band 11 % (5-11); Eosinophils 2 % (0-10); Hemoglobin 13.8 g/dL (14.0-18.0); Lymphocytes 12 % (21-51); MDiff Complete? YES; Mean Corpuscular HGB CONC 32.6 g/dL (32.0-36.0); Mean Corpuscular Hemoglobin 31.7 pg (27.0-31.0); Mean Corpuscular Volume 97.3 fL (78.0-98.0); Mean Platelet Volume 7.3 fL (7.4-10.4); Monocytes 7 % (0-10); Neutrophil 67 % (42-75); Platelet Count 253 thou/uL (130-400); RBC Distribution Width 12.6 % (11.5-14.5); Reactive Lymphocytes 1 % (0-10); Red Blood Cell (RBC) Count 4.35 mill/uL (4.70-6.10); White Blood Cell (WBC) Count 19.6 thou/uL (4.8-10.8)
[2018-02-24] MEDS: Furosemide 20 MG/2 ML VIAL SLOW IVP SCH (06:20)
[2018-02-24] MEDS: predniSONE 20 MG TAB PO SCH (08:09)
[2018-02-24] MEDS: Enoxaparin Sodium 40 MG/0.4 ML SYRINGE SC SCH (08:39)
[2018-02-24] MEDS: Famotidine/PF 20 mg/2ml Vial SLOW IVP SCH ×2 (08:39→21:28)
--- NOTE | 2018-02-24 14:10 | PRG ---
DATE OF SERVICE: 02/24/2018 Mr. Johnson continues to improve slowly. His strength is a little better today. PHYSICAL EXAMINATION: VITAL SIGNS: Heart rate 96, respiratory rate is 18, oximetry is 96 on 2 liters, blood pressure 145/8 4. LUNGS: Remarkable for mild rhonchi at both bases. CARDIOVASCULAR: Regular rhythm. ABDOMEN: Soft and nontender. EXTREMITIES: Without significant edema. Intake and output: Negative 1139. His weight was 251 pounds. LABORATORY DATA: White count 19.6, hemoglobin 13.8, platelets 253. Electrolytes are normal today. IMPRESSION: 1. Status post respiratory failure for pneumonia. 2. 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 3. Underlying severe chronic obstructive pulmonary disease with chronic respiratory failure on home oxygen. He is unable to swallow at this point so we will place a Dobbhoff tube and feed him slowly 20-30 mL p er hour, just so he is receiving some nutrition while he is recovering. It is unclear when his swall owing will recover. A Dobbhoff has been placed and is in the proper position by radiograph. He is s table to transfer out of the Critical Care Unit.
--- NOTE | 2018-02-24 14:42 | RAD ---
SINGLE VIEW OF THE ABDOMEN: COMPARISON: None. HISTORY: Dobbhoff tube placement. FINDINGS: A single view of the abdomen shows a Dobbhoff tube located in the region of the pylorus. A nonobstru cted bowel gas pattern is present. IMPRESSION: Dobbhoff tube located in the distal stomach. POS: [facility]
--- NOTE | 2018-02-24 21:00 | PDOC.PN ---
- Subjective Encounter Start Date: 02/24/18 Encounter Start Time: 17:00 Patient seen and examined for Resp failure. No new complaints. No overnight events - Objective Resuscitation Status: Resuscitation Status FULL:Full Resuscitation MAR Reviewed: Yes Vital Signs & Weight: Vital Signs (12 hours) Temp Pulse Pulse Pulse Resp BP BP 02/24/18 19:31 97.8 F 107 H 17 02/24/18 18:45 99 20 02/24/18 15:34 99.2 F 97 18 02/24/18 13:00 02/24/18 12:48 96 18 02/24/18 11:18 93 131 H 138/62 140/75 BP Pulse Ox Pulse Ox Pulse Ox 02/24/18 19:31 117/72 95 02/24/18 18:45 97 02/24/18 15:34 125/78 96 02/24/18 13:00 95 02/24/18 12:48 96 02/24/18 11:18 97 93 L Weight Admit Weight 260 lb Weight 251 lb 5.231 oz Most Recent Monitor Data Heart Rate from ECG 97 NIBP 145/84 NIBP BP-Mean 104 Respiration from ECG 20 SpO2 93 I&O: 02/23/18 02/24/18 02/25/18 06:59 06:59 06:59 Intake Total 1948 1176 0 Output Total 0630 7175 2502 [facility] -3327 -[phone] Result Diagrams: 02/26/18 04:18 02/26/18 04:18 Additional Labs: Accuchecks 02/24/18 02/24/18 02/23/18 16:45 10:05 22:23 POC Glucose 120 H 115 H 119 H EKG Reviewed by me: Yes (Tele SR) Phys Exam - Physical Examination Constitutional: NAD Respiratory: no wheezing, no rhonchi Cardiovascular: RRR, no rub Scat rhonchi Gastrointestinal: soft, non-tender, positive bowel sounds Dx/Plan - Plan 1. Toxic Metabolic Encephalopathy - slowly improving 2. Acute hypoxic-hypercapneic resp failure/COPD Exacerbation/ CA Pneumonia due to Moraxella - Extubated 02/22 3. Elevated troponins prob due to demand ischemia 4. TEO/CKD 2/ Hyperkalemia - improving 5. Obesity BMI 36.8 / Chronic resp failure on home O2 / Swallow dys 6. Other issues per previous notes PLAN: Tube feeding initiated PT Eval Cont Nebs/Diuretics Cont Atbx/Steroids AM labs Cont current meds as below Review of Systems - Review of Systems Cardiovascular: negative: chest pain, palpitations, orthopnea, paroxysmal nocturnal dyspnea, edema, light headedness, other Gastrointestinal: negative: Nausea, Vomiting, Abdominal Pain, Diarrhea, Constipation, Melena, Hematochezia, Other - Medications/Allergies Allergies/Adverse Reactions: Allergies Allergy/AdvReac Type Severity Reaction Status Date / Time No Known Allergies Allergy Unverified 02/16/18 18:43 Medications: Current Medications Acetaminophen (Tylenol) 650 mg [place] Q6H PRN PRN Reason: Fever > 101 or Mild Pain 1-3 Acetaminophen (Tylenol) 650 mg PO Q4H PRN PRN Reason: Headache/Fever/Mild Pain (1-3) Albuterol/Ipratropium (Duoneb) 3 ml NEB [id number] PRN PRN Reason: SOB &/or Wheezing Albuterol/Ipratropium (Duoneb) 3 ml EZPAP [id number] [facility] Last Admin: 02/24/18 18:45 Dose: 3 ml Bisacodyl (Dulcolax) 10 mg PO DAILYPRN PRN PRN Reason: Constipation Bisacodyl (Dulcolax) 10 mg [place] DAILYPRN PRN PRN Reason: Constipation Dextrose/Water (Dextrose 50%) 25 gm SLOW IVP PRN PRN PRN Reason: Hypoglycemia Enoxaparin Sodium (Lovenox) 40 mg SC 0900 [facility] Last Admin: 02/24/18 08:39 Dose: 40 mg Famotidine (Pepcid) 20 mg SLOW IVP Q12HR [facility] Last Admin: 02/24/18 08:39 Dose: 20 mg Furosemide (Lasix) 20 mg SLOW IVP 0600 [facility] Last Admin: 02/24/18 06:20 Dose: 20 mg Glucagon (Glucagon) 1 mg IM PRN PRN PRN Reason: Hypoglycemia Fentanyl Citrate (Fentanyl Bolus) 250 mls @ 0 mls/hr IVPB PRN PRN PRN Reason: Breakthrough pain/agitation Stop: 03/18/18 21:43 Potassium Chloride 40 meq/ (Sodium Chloride) 270 mls @ 135 mls/hr IVPB ASDIR PRN PRN Reason: FOR SERUM K+ 2.5 - 3.5 Potassium Chloride 40 meq/ (Device) 100 mls @ 50 mls/hr IVPB ASDIR PRN PRN Reason: FOR SERUM K+ 2.5 - 3.5 Magnesium Sulfate 1 gm/ Sodium (Chloride) 102 mls @ 102 mls/hr IV PRN PRN PRN Reason: MAG LEVEL 1.4 - 2.0 Magnesium Sulfate 2 gm/ Device 100 mls @ 100 mls/hr IVPB ASDIR PRN PRN Reason: MAGNESIUM < 1.4 Potassium Phosphate 9 mmol/ (Sodium Chloride) 103 mls @ 25.75 mls/hr IVPB ASDIR PRN PRN Reason: Phosphate 1.0-1.8 Potassium Phosphate 12 mmol/ (Sodium Chloride) 254 mls @ 63.5 mls/hr IV ASDIR PRN PRN Reason: Serum phosphate 0.5-0.9 Potassium Phosphate 15 mmol/ (Sodium Chloride) 255 mls @ 63.75 mls/hr IV ASDIR PRN PRN Reason: Serum Phos < 0.5 Azithromycin 500 mg/ Sodium (Chloride) 250 mls @ 250 mls/hr IVPB Q24HR [facility] Last Admin: 02/23/18 22:59 Dose: 250 mls Ceftriaxone Sodium 2 gm/ (Sodium Chloride) 100 mls @ 200 mls/hr IVPB Q24HR [facility] Last Admin: 02/23/18 20:38 Dose: 100 mls Dextrose/Water (D5w) 1,000 mls @ 0 mls/hr IV .Q0M PRN PRN Reason: Hypoglycemia Dexmedetomidine HCl 400 mcg/ (Sodium Chloride) 100 mls @ 0 mls/hr IVPB INF [facility] ; Protocol Last Admin: 02/24/18 08:39 Dose: 100 mls Insulin Human Lispro (Humalog) 0 units SC .MILD SLIDING SCALE PRN PRN Reason: Mild Correctional Scale Last Admin: 02/22/18 17:13 Dose: 2 unit Lorazepam (Ativan) 2 mg SLOW IVP Q1H PRN PRN Reason: Breakthrough agitation Stop: 03/18/18 21:43 Last Admin: 02/21/18 20:42 Dose: 2 mg Magnesium Oxide (Magnesium Oxide) 400 mg PO BIDPRN PRN PRN Reason: FOR SERUM MAG 1.4 - 2.0 Magnesium Oxide (Magnesium Oxide) 800 mg PO PRN PRN PRN Reason: FOR SERUM MAG < 1.4 Mineral Oil/White Petrolatum (Lacri-Lube Ointment) 0 gm EA EYE PRN PRN PRN Reason: Dry Eyes Miscellaneous Medication (Ventilator Sedation Protocol) 1 each FS ONE [facility] Stop: 03/18/18 21:46 Miscellaneous Medication (Ccu Electrolyte Replacement) 1 each IVPB ONE [facility] Stop: 03/18/18 21:42 Miscellaneous Medication (Pharmacy To Dose) 1 each IVPB PRN PRN PRN Reason: Pharmacy to dose Miscellaneous Medication (Phos-Nak) 1 pkt PO TIDPRN PRN PRN Reason: FOR PHOS LEVEL 1.0 - 1.8 Miscellaneous Medication (Phos-Nak) 2 pkt PO TIDPRN PRN PRN Reason: FOR PHOS LEVEL 0.5 - 1.0 Discontinue Previous Narcotic Pain Medications And Benzodiazepines 1 each FS .ONE [facility] Stop: 03/18/18 21:43 Ccu Electrolyte (Replacement Protocol) 0 each FS PRN PRN PRN Reason: FOR ELECTROLYTE REPLACEMENT Potassium Chloride (K-Dur) 40 meq PO ASDIR PRN PRN Reason: FOR SERUM K+ 2.5 - 3.5 Potassium Chloride (Klor-Con) 40 meq PER TUBE ASDIR PRN PRN Reason: FOR SERUM K+ 2.5-3.5 Prednisone (Prednisone) 40 mg PO QA-[facility] Last Admin: 02/24/18 08:09 Dose: Not Given Senna/Docusate Sodium (Senokot S) 2 tab PO BIDPRN PRN PRN Reason: Constipation Sodium Chloride (Flush - Normal Saline) 10 ml IVF Q12HR [facility] Last Admin: 02/24/18 08:39 Dose: 10 ml Sodium Chloride (Flush - Normal Saline) 10 ml IVF PRN PRN PRN Reason: Saline Flush
[2018-02-24] MEDS: cefTRIAXone\\ROCEPHIN 2 GM in Sodium Chloride 0.9% 100 ML IVPB SCH (21:27)
[2018-02-24] MEDS: Azithromycin 500 MG in Sodium Chloride 0.9% 250 ML 250 ML IVPB SCH (23:43)
[2018-02-25] MEDS: Furosemide 20 MG/2 ML VIAL SLOW IVP SCH (05:30)
[2018-02-25 06:21] LABS: Anion Gap 12 mmol/L (10-20); BUN (Urea Nitrogen) 30 mg/dL (8.4-25.7); Calc. Creatinine Clearance 142 mL/min (70-130); Calcium 9.5 mg/dL (7.8-10.44); Carbon Dioxide 28 mmol/L (23-31); Chloride 106 mmol/L (98-107); Estimated GFR-MDRD Greater than 90; Glucose 140 mg/dL (80-115); Magnesium 2.6 mg/dL (1.6-2.6); Phosphorus 3.6 mg/dL (2.3-4.7); Sodium 142 mmol/L (136-145)
[2018-02-25 06:23] LABS: Band 4 % (5-11); Eosinophils 1 % (0-10); Hemoglobin 13.5 g/dL (14.0-18.0); Lymphocytes 6 % (21-51); MDiff Complete? YES; Mean Corpuscular HGB CONC 30.9 g/dL (32.0-36.0); Mean Corpuscular Hemoglobin 30.8 pg (27.0-31.0); Mean Corpuscular Volume 99.7 fL (78.0-98.0); Mean Platelet Volume 7.2 fL (7.4-10.4); Monocytes 9 % (0-10); Myelocyte 2 % (0-0); Neutrophil 75 % (42-75); Platelet Count 288 thou/uL (130-400); RBC Distribution Width 12.7 % (11.5-14.5); Reactive Lymphocytes 3 % (0-10); Red Blood Cell (RBC) Count 4.38 mill/uL (4.70-6.10); White Blood Cell (WBC) Count 17.5 thou/uL (4.8-10.8)
[2018-02-25] MEDS: predniSONE 20 MG TAB PO SCH ×2 (08:05→09:49)
[2018-02-25] MEDS: Famotidine/PF 20 mg/2ml Vial SLOW IVP SCH ×2 (09:49→20:44)
[2018-02-25] MEDS: Enoxaparin Sodium 40 MG/0.4 ML SYRINGE SC SCH (09:49)
--- NOTE | 2018-02-25 12:55 | PRG ---
DATE OF SERVICE: 02/25/2018 Mr. Johnson is afebrile, heart rates in the 90s, respiratory rates 20. He is attempting to stand with physical therapy. He stood twice. He had a walker in front of him. He is extremely weak. His oxi metry is 96 on 2 liters, blood pressure 158/89. Lungs are still remarkable for crackles at his bases . Heart, regular rhythm. Abdomen is soft. LABORATORY DATA: White count 17.5, hemoglobin 13.5, platelets 288. Sodium 142, potassium 4, chlorid e 106, bicarbonate 20, BUN 30, creatinine 0.78. IMPRESSION: 1. Status post respiratory failure with pneumonia. 2. Severe chronic obstructive pulmonary disease with chronic respiratory failure, on home oxygen ricki or to admission. 3. Status post mechanical ventilation. 4. ?some component of hypoxic encephalopathy, given that he was out in the field for 4-5 hours befor e they found him without his oxygen. He is clearly not of a normal mental status. PLAN: We will continue supportive care. He will eventually need correction placement.
[2018-02-25] MEDS ORDERED: Acetaminophen 1,000 MG in Premix Bag 1 BAG IVPB PRN (13:55)
[2018-02-25] MEDS ORDERED: Acetaminophen 650 MG Suppository PR PRN (13:55)
[2018-02-25] MEDS ORDERED: Acetaminophen 650 MG/20.3 ML UDCUP PO PRN (13:55)
[2018-02-25] MEDS: Dextrose 5 % And 0.9 % NaCl 1,000 ML IV SCH (17:21)
--- NOTE | 2018-02-25 17:50 | PDOC.PN ---
- Subjective Encounter Start Date: 02/25/18 Encounter Start Time: 13:30 Patient seen and examined for Resp failure. No new complaints. NPO for [employer] eval. Overnight events noted - Objective Resuscitation Status: Resuscitation Status FULL:Full Resuscitation MAR Reviewed: Yes Vital Signs & Weight: Vital Signs (12 hours) Temp Pulse Pulse Pulse Resp BP BP 02/25/18 12:56 97 22 H 02/25/18 08:45 101 H 97 158/89 H 142/82 H 02/25/18 08:00 98.0 F 96 20 02/25/18 07:35 02/25/18 07:32 102 H 17 BP Pulse Ox Pulse Ox Pulse Ox 02/25/18 12:56 97 02/25/18 08:45 96 93 L 02/25/18 08:00 158/89 H 96 02/25/18 07:35 98 02/25/18 07:32 99 Weight Admit Weight 260 lb 2.327 oz Weight 249 lb 9 oz Most Recent Monitor Data Heart Rate from ECG 97 NIBP 145/84 NIBP BP-Mean 104 Respiration from ECG 20 SpO2 93 I&O: 02/24/18 02/25/18 02/26/18 06:59 06:59 06:59 Intake Total 1176 0 Output Total 2315 1165 Balance -1139 -1165 Result Diagrams: 02/26/18 04:18 02/26/18 04:18 Additional Labs: Accuchecks 02/25/18 02/25/18 02/25/18 17:19 12:17 04:40 POC Glucose 116 H 136 H 134 H 02/24/18 22:58 POC Glucose 130 H EKG Reviewed by me: Yes (Tele SR) Phys Exam - Physical Examination Constitutional: NAD Respiratory: no wheezing, no rhonchi Dec AE at bases Cardiovascular: RRR, no rub Gastrointestinal: soft, non-tender, positive bowel sounds Neurological: moves all 4 limbs Dx/Plan - Plan DVT proph w/SCDs 1. Toxic Metabolic Encephalopathy 2. Acute hypoxic-hypercapneic resp failure/COPD Exacerbation/ CA Pneumonia due to Moraxella - Extubated 02/22 3. Elevated troponins prob due to demand ischemia 4. TEO/CKD 2/ Hyperkalemia - improved 5. Obesity BMI 36.8 / Chronic resp failure on home O2 / Swallow dys 6. Physical deconditioning / Other issues per previous notes PLAN: NPO for [employer] eval Cont PT AM labs Cont current meds as below Review of Systems - Review of Systems Cardiovascular: negative: chest pain, palpitations, orthopnea, paroxysmal nocturnal dyspnea, edema, light headedness, other Gastrointestinal: negative: Nausea, Vomiting, Abdominal Pain, Diarrhea, Constipation, Melena, Hematochezia, Other - Medications/Allergies Allergies/Adverse Reactions: Allergies Allergy/AdvReac Type Severity Reaction Status Date / Time No Known Allergies Allergy Unverified 02/16/18 18:43 Medications: Current Medications Acetaminophen (Tylenol) 650 mg NV Q6H PRN PRN Reason: Fever > 101 or Mild Pain 1-3 Acetaminophen (Tylenol) 650 mg PO Q4H PRN PRN Reason: Headache/Fever/Mild Pain (1-3) Acetaminophen (Tylenol) 650 mg NV Q4H PRN PRN Reason: Headache/Fever or Pain Acetaminophen (Tylenol Elixir) 650 mg PO Q4H PRN PRN Reason: pain/fever Albuterol/Ipratropium (Duoneb) 3 ml NEB [id number] PRN PRN Reason: SOB &/or Wheezing Albuterol/Ipratropium (Duoneb) 3 ml EZPAP [id number] [facility] Last Admin: 02/25/18 12:56 Dose: 3 ml Bisacodyl (Dulcolax) 10 mg PO DAILYPRN PRN PRN Reason: Constipation Bisacodyl (Dulcolax) 10 mg [place] DAILYPRN PRN PRN Reason: Constipation Dextrose/Water (Dextrose 50%) 25 gm SLOW IVP PRN PRN PRN Reason: Hypoglycemia Enoxaparin Sodium (Lovenox) 40 mg SC 0900 [facility] Last Admin: 02/25/18 09:49 Dose: 40 mg Famotidine (Pepcid) 20 mg SLOW IVP Q12HR [facility] Last Admin: 02/25/18 09:49 Dose: 20 mg Furosemide (Lasix) 20 mg SLOW IVP 0600 [facility] Last Admin: 02/25/18 05:30 Dose: 20 mg Glucagon (Glucagon) 1 mg IM PRN PRN PRN Reason: Hypoglycemia Fentanyl Citrate (Fentanyl Bolus) 250 mls @ 0 mls/hr IVPB PRN PRN PRN Reason: Breakthrough pain/agitation Stop: 03/18/18 21:43 Potassium Chloride 40 meq/ (Sodium Chloride) 270 mls @ 135 mls/hr IVPB ASDIR PRN PRN Reason: FOR SERUM K+ 2.5 - 3.5 Potassium Chloride 40 meq/ (Device) 100 mls @ 50 mls/hr IVPB ASDIR PRN PRN Reason: FOR SERUM K+ 2.5 - 3.5 Magnesium Sulfate 1 gm/ Sodium (Chloride) 102 mls @ 102 mls/hr IV PRN PRN PRN Reason: MAG LEVEL 1.4 - 2.0 Magnesium Sulfate 2 gm/ Device 100 mls @ 100 mls/hr IVPB ASDIR PRN PRN Reason: MAGNESIUM < 1.4 Potassium Phosphate 9 mmol/ (Sodium Chloride) 103 mls @ 25.75 mls/hr IVPB ASDIR PRN PRN Reason: Phosphate 1.0-1.8 Potassium Phosphate 12 mmol/ (Sodium Chloride) 254 mls @ 63.5 mls/hr IV ASDIR PRN PRN Reason: Serum phosphate 0.5-0.9 Potassium Phosphate 15 mmol/ (Sodium Chloride) 255 mls @ 63.75 mls/hr IV ASDIR PRN PRN Reason: Serum Phos < 0.5 Azithromycin 500 mg/ Sodium (Chloride) 250 mls @ 250 mls/hr IVPB Q24HR [facility] Last Admin: 02/24/18 23:43 Dose: 250 mls Ceftriaxone Sodium 2 gm/ (Sodium Chloride) 100 mls @ 200 mls/hr IVPB Q24HR [facility] Last Admin: 02/24/18 21:27 Dose: 100 mls Dextrose/Water (D5w) 1,000 mls @ 0 mls/hr IV .Q0M PRN PRN Reason: Hypoglycemia Dexmedetomidine HCl 400 mcg/ (Sodium Chloride) 100 mls @ 0 mls/hr IVPB INF JIMENEZ ; Protocol Last Admin: 02/24/18 08:39 Dose: 100 mls Acetaminophen 1,000 mg/ Device 100 mls @ 400 mls/hr IVPB Q6HR PRN PRN Reason: Fever > 101 Stop: 02/26/18 13:56 Dextrose/Sodium Chloride (D5 0.9% Ns) 1,000 mls @ 50 mls/hr IV .Q20H [facility] Last Admin: 02/25/18 17:21 Dose: 1,000 mls Insulin Human Lispro (Humalog) 0 units SC .MILD SLIDING SCALE PRN PRN Reason: Mild Correctional Scale Last Admin: 02/22/18 17:13 Dose: 2 unit Lorazepam (Ativan) 2 mg SLOW IVP Q1H PRN PRN Reason: Breakthrough agitation Stop: 03/18/18 21:43 Last Admin: 02/21/18 20:42 Dose: 2 mg Magnesium Oxide (Magnesium Oxide) 400 mg PO BIDPRN PRN PRN Reason: FOR SERUM MAG 1.4 - 2.0 Magnesium Oxide (Magnesium Oxide) 800 mg PO PRN PRN PRN Reason: FOR SERUM MAG < 1.4 Mineral Oil/White Petrolatum (Lacri-Lube Ointment) 0 gm EA EYE PRN PRN PRN Reason: Dry Eyes Miscellaneous Medication (Ventilator Sedation Protocol) 1 each FS ONE [facility] Stop: 03/18/18 21:46 Miscellaneous Medication (Ccu Electrolyte Replacement) 1 each IVPB ONE [facility] Stop: 03/18/18 21:42 Miscellaneous Medication (Pharmacy To Dose) 1 each IVPB PRN PRN PRN Reason: Pharmacy to dose Miscellaneous Medication (Phos-Nak) 1 pkt PO TIDPRN PRN PRN Reason: FOR PHOS LEVEL 1.0 - 1.8 Miscellaneous Medication (Phos-Nak) 2 pkt PO TIDPRN PRN PRN Reason: FOR PHOS LEVEL 0.5 - 1.0 Discontinue Previous Narcotic Pain Medications And Benzodiazepines 1 each FS .ONE [facility] Stop: 03/18/18 21:43 Ccu Electrolyte (Replacement Protocol) 0 each FS PRN PRN PRN Reason: FOR ELECTROLYTE REPLACEMENT Potassium Chloride (K-Dur) 40 meq PO ASDIR PRN PRN Reason: FOR SERUM K+ 2.5 - 3.5 Potassium Chloride (Klor-Con) 40 meq PER TUBE ASDIR PRN PRN Reason: FOR SERUM K+ 2.5-3.5 Prednisone (Prednisone) 40 mg PO QAM-[facility] Last Admin: 02/25/18 09:49 Dose: 40 mg Senna/Docusate Sodium (Senokot S) 2 tab PO BIDPRN PRN PRN Reason: Constipation Sodium Chloride (Flush - Normal Saline) 10 ml IVF Q12HR [facility] Last Admin: 02/25/18 09:49 Dose: 10 ml Sodium Chloride (Flush - Normal Saline) 10 ml IVF PRN PRN PRN Reason: Saline Flush Last Admin: 02/24/18 23:43 Dose: 10 ml
[2018-02-25] MEDS: cefTRIAXone\\ROCEPHIN 2 GM in Sodium Chloride 0.9% 100 ML IVPB SCH (20:44)
[2018-02-25] MEDS: Azithromycin 500 MG in Sodium Chloride 0.9% 250 ML 250 ML IVPB SCH (23:49)
[2018-02-26 05:02] LABS: Anion Gap 8 mmol/L (10-20); BUN (Urea Nitrogen) 28 mg/dL (8.4-25.7); Calc. Creatinine Clearance 153 mL/min (70-130); Calcium 9.5 mg/dL (7.8-10.44); Carbon Dioxide 35 mmol/L (23-31); Chloride 108 mmol/L (98-107); Estimated GFR-MDRD Greater than 90; Glucose 132 mg/dL (80-115); Magnesium 2.2 mg/dL (1.6-2.6); Sodium 147 mmol/L (136-145)
[2018-02-26 05:12] LABS: Hemoglobin 12.9 g/dL (14.0-18.0); Mean Corpuscular HGB CONC 31.5 g/dL (32.0-36.0); Mean Platelet Volume 7.4 fL (7.4-10.4); Platelet Count 304 thou/uL (130-400); RBC Distribution Width 12.6 % (11.5-14.5); Red Blood Cell (RBC) Count 4.04 mill/uL (4.70-6.10); White Blood Cell (WBC) Count 13.8 thou/uL (4.8-10.8)
[2018-02-26 05:13] LABS: Hypochromia SLIGHT = 6-15 cells (100X) (0-5/hpf); Lymphocytes 8 % (21-51); MDiff Complete? YES; Macrocytosis SLIGHT = 6-15 cells (100X) (0-5/hpf); Monocytes 9 % (0-10); Neutrophil 83 % (42-75); PLT Morphology Comment Appears Adequate
[2018-02-26] MEDS: Furosemide 20 MG/2 ML VIAL SLOW IVP SCH (06:34)
[2018-02-26] MEDS: predniSONE 20 MG TAB PO SCH (09:29)
[2018-02-26] MEDS: Famotidine/PF 20 mg/2ml Vial SLOW IVP SCH ×2 (09:29→20:41)
[2018-02-26] MEDS: Enoxaparin Sodium 40 MG/0.4 ML SYRINGE SC SCH (09:29)
--- NOTE | 2018-02-26 15:06 | PRG ---
DATE OF SERVICE: 02/26/2018 SUBJECTIVE: Mr. Johnson wants to go home. He says that we just get him home in his recliner and he w ill be fine. He has no understanding of how weak he was yesterday, he could barely stand. OBJECTIVE: VITALS: Heart rate is 119, blood pressure 126/102, his diastolic blood pressures have been elevated today. LUNGS: Clear. HEART: Regular rhythm. ABDOMEN: Soft. LABORATORY DATA: Sodium 147, potassium 4, chloride 108, bicarbonate 35, BUN 28, creatinine 0.72. IMPRESSION: 1. Extreme deconditioning. He will need placement. 2. Pneumonia. 3. Chronic respiratory failure with acute decompensation requiring intubation. 4. Community-acquired pneumonia. Swallowing dysfunction, probably would benefit from a PEG. Gastroenterology consult to be placed. He continues to be encephalopathic to a mild degree. He has poor judgment, does understand the sever ity of his deconditioning. There is no way he can be discharged to home in my opinion.
[2018-02-26] MEDS: Dextrose 5 % And 0.9 % NaCl 1,000 ML IV SCH (15:50)
--- NOTE | 2018-02-26 18:03 | PDOC.PN ---
- Subjective Encounter Start Date: 02/26/18 Encounter Start Time: 15:00 Patient seen and examined for Resp failure/Encephalopathy. NPO per [employer]NA[employer]. No new complaints. No overnight events - Objective Resuscitation Status: Resuscitation Status FULL:Full Resuscitation MAR Reviewed: Yes Vital Signs & Weight: Vital Signs (12 hours) Temp Pulse Pulse Pulse Resp BP BP 02/26/18 15:42 98.7 F 92 19 02/26/18 13:53 98 20 02/26/18 11:09 97.7 F 84 16 02/26/18 08:45 91 86 148/78 H 156/80 H 02/26/18 07:54 02/26/18 07:53 85 17 02/26/18 07:33 97.4 F L 89 19 BP Pulse Ox Pulse Ox Pulse Ox 02/26/18 15:42 151/79 H 91 L 02/26/18 13:53 92 L 02/26/18 11:09 150/78 H 94 L 02/26/18 08:45 99 93 L 02/26/18 07:54 93 L 02/26/18 07:53 93 L 02/26/18 07:33 163/85 H 94 L Weight Admit Weight 260 lb 2.327 oz Weight 243 lb 3 oz Most Recent Monitor Data Heart Rate from ECG 97 NIBP 145/84 NIBP BP-Mean 104 Respiration from ECG 20 SpO2 93 I&O: 02/25/18 02/26/18 02/27/18 06:59 06:59 06:59 Intake Total 0 800 Output Total 1165 750 Balance -1165 50 Result Diagrams: 02/26/18 04:18 02/26/18 04:18 Additional Labs: Accuchecks 02/26/18 02/26/18 02/26/18 17:43 10:45 04:33 POC Glucose 130 H 141 H 117 H 02/25/18 22:00 POC Glucose 122 H EKG Reviewed by me: Yes (Tele SR) Phys Exam - Physical Examination Constitutional: NAD Respiratory: no wheezing, no rhonchi Dec AE at bases with few rales at bases Cardiovascular: RRR, no rub Gastrointestinal: soft, non-tender, positive bowel sounds Musculoskeletal: no edema Neurological: moves all 4 limbs Dx/Plan - Plan DVT proph w/SCDs 1. Toxic Metabolic Encephalopathy 2. Acute hypoxic-hypercapneic resp failure/COPD Exacerbation/ CA Pneumonia due to Moraxella - Extubated 02/22 3. Elevated troponins prob due to demand ischemia 4. TEO/CKD 2/ Hyperkalemia - improved 5. Obesity BMI 36.8 / Chronic resp failure on home O2 / Swallow dys 6. Physical deconditioning / Other issues per previous notes PLAN: GI consulted for PEG Cont therapy DC IV Lasix Cont gentle IVF while NPO AM labs Cont current meds as below Review of Systems - Review of Systems Cardiovascular: negative: chest pain, palpitations, orthopnea, paroxysmal nocturnal dyspnea, edema, light headedness, other Gastrointestinal: negative: Nausea, Vomiting, Abdominal Pain, Diarrhea, Constipation, Melena, Hematochezia, Other - Medications/Allergies Allergies/Adverse Reactions: Allergies Allergy/AdvReac Type Severity Reaction Status Date / Time No Known Allergies Allergy Unverified 02/16/18 18:43 Medications: Current Medications Acetaminophen (Tylenol) 650 mg [place] Q6H PRN PRN Reason: Fever > 101 or Mild Pain 1-3 Acetaminophen (Tylenol) 650 mg PO Q4H PRN PRN Reason: Headache/Fever/Mild Pain (1-3) Acetaminophen (Tylenol) 650 mg [place] Q4H PRN PRN Reason: Headache/Fever or Pain Acetaminophen (Tylenol Elixir) 650 mg PO Q4H PRN PRN Reason: pain/fever Albuterol/Ipratropium (Duoneb) 3 ml NEB [id number] PRN PRN Reason: SOB &/or Wheezing Albuterol/Ipratropium (Duoneb) 3 ml EZPAP [id number] [facility] Last Admin: 02/26/18 13:53 Dose: 3 ml Bisacodyl (Dulcolax) 10 mg PO DAILYPRN PRN PRN Reason: Constipation Bisacodyl (Dulcolax) 10 mg [place] DAILYPRN PRN PRN Reason: Constipation Dextrose/Water (Dextrose 50%) 25 gm SLOW IVP PRN PRN PRN Reason: Hypoglycemia Enoxaparin Sodium (Lovenox) 40 mg SC 0900 [facility] Last Admin: 02/26/18 09:29 Dose: 40 mg Famotidine (Pepcid) 20 mg SLOW IVP Q12HR [facility] Last Admin: 02/26/18 09:29 Dose: 20 mg Glucagon (Glucagon) 1 mg IM PRN PRN PRN Reason: Hypoglycemia Fentanyl Citrate (Fentanyl Bolus) 250 mls @ 0 mls/hr IVPB PRN PRN PRN Reason: Breakthrough pain/agitation Stop: 03/18/18 21:43 Potassium Chloride 40 meq/ (Sodium Chloride) 270 mls @ 135 mls/hr IVPB ASDIR PRN PRN Reason: FOR SERUM K+ 2.5 - 3.5 Potassium Chloride 40 meq/ (Device) 100 mls @ 50 mls/hr IVPB ASDIR PRN PRN Reason: FOR SERUM K+ 2.5 - 3.5 Magnesium Sulfate 1 gm/ Sodium (Chloride) 102 mls @ 102 mls/hr IV PRN PRN PRN Reason: MAG LEVEL 1.4 - 2.0 Magnesium Sulfate 2 gm/ Device 100 mls @ 100 mls/hr IVPB ASDIR PRN PRN Reason: MAGNESIUM < 1.4 Potassium Phosphate 9 mmol/ (Sodium Chloride) 103 mls @ 25.75 mls/hr IVPB ASDIR PRN PRN Reason: Phosphate 1.0-1.8 Potassium Phosphate 12 mmol/ (Sodium Chloride) 254 mls @ 63.5 mls/hr IV ASDIR PRN PRN Reason: Serum phosphate 0.5-0.9 Potassium Phosphate 15 mmol/ (Sodium Chloride) 255 mls @ 63.75 mls/hr IV ASDIR PRN PRN Reason: Serum Phos < 0.5 Azithromycin 500 mg/ Sodium (Chloride) 250 mls @ 250 mls/hr IVPB Q24HR [facility] Last Admin: 02/25/18 23:49 Dose: 250 mls Ceftriaxone Sodium 2 gm/ (Sodium Chloride) 100 mls @ 200 mls/hr IVPB Q24HR [facility] Last Admin: 02/25/18 20:44 Dose: 100 mls Dextrose/Water (D5w) 1,000 mls @ 0 mls/hr IV .Q0M PRN PRN Reason: Hypoglycemia Dexmedetomidine HCl 400 mcg/ (Sodium Chloride) 100 mls @ 0 mls/hr IVPB INF [facility] ; Protocol Last Admin: 02/24/18 08:39 Dose: 100 mls Dextrose/Sodium Chloride (D5 0.9% Ns) 1,000 mls @ 50 mls/hr IV .Q20H [facility] Last Admin: 02/26/18 15:50 Dose: 1,000 mls Insulin Human Lispro (Humalog) 0 units SC .MILD SLIDING SCALE PRN PRN Reason: Mild Correctional Scale Last Admin: 02/22/18 17:13 Dose: 2 unit Lorazepam (Ativan) 2 mg SLOW IVP Q1H PRN PRN Reason: Breakthrough agitation Stop: 03/18/18 21:43 Last Admin: 02/21/18 20:42 Dose: 2 mg Magnesium Oxide (Magnesium Oxide) 400 mg PO BIDPRN PRN PRN Reason: FOR SERUM MAG 1.4 - 2.0 Magnesium Oxide (Magnesium Oxide) 800 mg PO PRN PRN PRN Reason: FOR SERUM MAG < 1.4 Methylprednisolone Sodium Succinate (Solu-Medrol) 40 mg IVP DAILY [facility] Stop: 02/27/18 23:59 Mineral Oil/White Petrolatum (Lacri-Lube Ointment) 0 gm EA EYE PRN PRN PRN Reason: Dry Eyes Miscellaneous Medication (Ventilator Sedation Protocol) 1 each FS ONE [facility] Stop: 03/18/18 21:46 Miscellaneous Medication (Ccu Electrolyte Replacement) 1 each IVPB ONE [facility] Stop: 03/18/18 21:42 Miscellaneous Medication (Pharmacy To Dose) 1 each IVPB PRN PRN PRN Reason: Pharmacy to dose Miscellaneous Medication (Phos-Nak) 1 pkt PO TIDPRN PRN PRN Reason: FOR PHOS LEVEL 1.0 - 1.8 Miscellaneous Medication (Phos-Nak) 2 pkt PO TIDPRN PRN PRN Reason: FOR PHOS LEVEL 0.5 - 1.0 Discontinue Previous Narcotic Pain Medications And Benzodiazepines 1 each FS .ONE [facility] Stop: 03/18/18 21:43 Ccu Electrolyte (Replacement Protocol) 0 each FS PRN PRN PRN Reason: FOR ELECTROLYTE REPLACEMENT Potassium Chloride (K-Dur) 40 meq PO ASDIR PRN PRN Reason: FOR SERUM K+ 2.5 - 3.5 Potassium Chloride (Klor-Con) 40 meq PER TUBE ASDIR PRN PRN Reason: FOR SERUM K+ 2.5-3.5 Prednisone (Prednisone) 40 mg PO QA-[facility] Senna/Docusate Sodium (Senokot S) 2 tab PO BIDPRN PRN PRN Reason: Constipation Sodium Chloride (Flush - Normal Saline) 10 ml IVF Q12HR [facility] Last Admin: 02/26/18 09:30 Dose: 10 ml Sodium Chloride (Flush - Normal Saline) 10 ml IVF PRN PRN PRN Reason: Saline Flush Last Admin: 02/26/18 06:34 Dose: 10 ml
--- NOTE | 2018-02-26 19:08 | CON ---
DATE OF CONSULTATION: 02/26/2018 HISTORY OF PRESENT ILLNESS: The patient is a 68-year-old male who presented to the [facility] more than a week ago, found down with respiratory failure secondary to chronic obstructive pulmonar y disease. He subsequently improved and extubated; however, he has failed swallow studies and is hav ing difficulty with nutrition. He recently had a Dobbhoff tube that fell out. He is confused and ad ds nothing to history of present illness. PAST MEDICAL HISTORY: Includes COPD, hypertension. PAST SURGICAL HISTORY: Includes colon resection and appendectomy. ALLERGIES: No known medical allergies. SOCIAL HISTORY: He is a former smoker, drinks alcohol. FAMILY HISTORY: Unobtainable. REVIEW OF SYSTEMS: Unobtainable. PHYSICAL EXAMINATION: GENERAL: Shows a confused white male in no acute distress. VITAL SIGNS: Temperature 98.7, pulse 92, respiratory rate 19, blood pressure 151/79. HEENT: Unremarkable. NECK: Supple. CHEST: Clear. CARDIOVASCULAR: Regular rate and rhythm. ABDOMEN: Soft, nontender, without organomegaly or masses. He has a midline scar which has had some granulation tissue there. EXTREMITIES: Normal. NEUROLOGIC: Nonfocal. ASSESSMENT: 1. Oropharyngeal dysphagia. 2. Chronic obstructive pulmonary disease. 3. Colon resection for cancer. RECOMMENDATIONS: EGD and PEG placement in a.m.
[2018-02-26] MEDS: cefTRIAXone\\ROCEPHIN 2 GM in Sodium Chloride 0.9% 100 ML IVPB SCH (20:41)
[2018-02-26] MEDS: Azithromycin 500 MG in Sodium Chloride 0.9% 250 ML 250 ML IVPB SCH (23:36)
[2018-02-27 04:13] LABS: Anion Gap 12 mmol/L (10-20); BUN (Urea Nitrogen) 26 mg/dL (8.4-25.7); Calc. Creatinine Clearance 143 mL/min (70-130); Calcium 9.8 mg/dL (7.8-10.44); Carbon Dioxide 33 mmol/L (23-31); Chloride 112 mmol/L (98-107); Estimated GFR-MDRD Greater than 90; Glucose 131 mg/dL (80-115); Magnesium 2.5 mg/dL (1.6-2.6); Potassium 4.5 mmol/L (3.5-5.1); Sodium 152 mmol/L (136-145)
[2018-02-27 04:14] LABS: Band 10 % (5-11); Hemoglobin 12.4 g/dL (14.0-18.0); Lymphocytes 13 % (21-51); MDiff Complete? YES; Mean Corpuscular HGB CONC 32.3 g/dL (32.0-36.0); Mean Corpuscular Hemoglobin 32.4 pg (27.0-31.0); Mean Platelet Volume 7.1 fL (7.4-10.4); Metamyelocyte 1 % (0-0); Monocytes 5 % (0-10); Neutrophil 71 % (42-75); PLT Morphology Comment Appears Adequate; Platelet Count 324 thou/uL (130-400); RBC Distribution Width 12.6 % (11.5-14.5); Red Blood Cell (RBC) Count 3.83 mill/uL (4.70-6.10); White Blood Cell (WBC) Count 11.6 thou/uL (4.8-10.8)
[2018-02-27] MEDS: Dextrose 5 % And 0.9 % NaCl 1,000 ML IV SCH ×2 (09:13→18:44)
[2018-02-27] MEDS: Famotidine/PF 20 mg/2ml Vial SLOW IVP SCH ×2 (09:14→21:15)
[2018-02-27] MEDS: Enoxaparin Sodium 40 MG/0.4 ML SYRINGE SC SCH (09:14)
[2018-02-27] MEDS ORDERED: Furosemide 40 MG/4 ML VIAL IVP SCH (10:46)
--- NOTE | 2018-02-27 10:56 | PRG ---
DATE OF SERVICE: 02/27/2018 SUBJECTIVE: Kd Johnson was down for PEG placement today. The next step will be placement in a ehabilitation facility. I am not sure recover enough to go back home. [facility] since [facility]. We will continue to follow up for supportive care.
--- NOTE | 2018-02-27 11:42 | OP ---
DATE OF PROCEDURE: 02/27/2018 SURGEON: Dr. Jhon Ramirez PREOPERATIVE DIAGNOSIS: Oropharyngeal dysphagia. PROCEDURE: After informed consent was obtained, the patient was placed in the supine position. Anes thesia was administered per the Anesthesia Department. Forward-viewing endoscope was inserted into t he esophagus under direct visualization with ease and passed to the second portion of the duodenum wi th ease. Second portion of the duodenum and duodenal bulb were normal. Pylorus, antrum, body, fundu s, and cardia were normal. Retroflexion of stomach was normal. Esophagus was normal throughout. Th e area was prepped and draped in usual manner. Anesthesia was applied with 1% lidocaine without epin ephrine. A needle was inserted through the abdominal wall on the first pass. A wire was passed, sna red, and brought out the mouth. The PEG tube was attached and brought through the abdominal wall aft er a small incision was made. Reinsertion of the endoscope showed the peg bumper to be in good posit ion. ASSESSMENT: Successful percutaneous endoscopic gastrostomy. RECOMMENDATIONS: Begin tube feedings in 8 hours.
[2018-02-27] MEDS ORDERED: PROPOFOL 200 MG/20 ML VIAL ONE (12:57)
--- NOTE | 2018-02-27 16:18 | EKG ---
Test Reason : Blood Pressure : / mmHG Vent. Rate : 108 BPM Atrial Rate : 108 BPM P-R Int : 158 ms QRS Dur : 160 ms QT Int : 372 ms P-R-T Axes : 025 -55 -09 degrees QTc Int : 498 ms Sinus tachycardia Left axis deviation Non-specific intra-ventricular conduction block Abnormal ECG Confirmed by GEOVANNI VILLASENOR DO ([id number]), business editor HUNTER NIELSEN ([id number]) on 02/27/2018 4:18:10 PM Referred By: Confirmed By:GEOVANNI VILLASENOR DO
--- NOTE | 2018-02-27 19:33 | PDOC.PN ---
- Subjective Encounter Start Date: 02/27/18 Encounter Start Time: 18:20 Subjective: f/u s/p PEG tube placement today with plans to start TF's -: with Jevity 1.5. No new complaints currently. - Objective Resuscitation Status: Resuscitation Status FULL:Full Resuscitation MAR Reviewed: Yes Vital Signs & Weight: Vital Signs (12 hours) Temp Pulse Pulse Pulse Resp BP BP 02/27/18 16:06 97.4 F L 96 12 02/27/18 14:55 87 98 138/77 154/86 H 02/27/18 13:25 96 20 02/27/18 12:03 98.8 F 90 20 02/27/18 10:20 87 20 02/27/18 07:47 99.1 F 84 23 H 02/27/18 07:44 92 20 BP BP Pulse Ox Pulse Ox Pulse Ox 02/27/18 16:06 140/85 94 L 02/27/18 14:55 140/85 92 L 92 L 02/27/18 13:25 90 L 02/27/18 12:03 162/81 H 97 02/27/18 10:20 91 L 02/27/18 07:47 161/61 H 95 02/27/18 07:44 92 L Weight Admit Weight 260 lb 2.327 oz Weight 241 lb 1 oz Most Recent Monitor Data Heart Rate from ECG 97 NIBP 145/84 NIBP BP-Mean 104 Respiration from ECG 20 SpO2 93 I&O: 02/26/18 02/27/18 02/28/18 06:59 06:59 06:59 Intake Total 800 875 500 Output Total 702 903 3813 Balance 50 125 -1050 Result Diagrams: 02/27/18 03:27 02/27/18 03:27 Additional Labs: Accuchecks 02/27/18 02/27/18 02/27/18 17:57 12:30 06:09 POC Glucose 148 H 135 H 130 H 02/27/18 02/26/18 03:57 19:52 POC Glucose 120 H 149 H Laboratory Tests 02/25/18 02/25/18 02/26/18 05:45 05:45 04:18 WBC 17.5 H 13.8 H Sodium 142 Magnesium 02/26/18 02/27/18 04:18 03:27 WBC Sodium 147 H Magnesium 2.5 EKG Reviewed by me: Yes (Tele - SR) Phys Exam - Physical Examination Constitutional: NAD alert, expressive dysphasia HEENT: PERRLA, sclera anicteric, oral pharynx no lesions Neck: no nodes, no JVD, supple, full ROM diminished in bases S1, S2 Cardiovascular: RRR, no significant murmur, no rub, gallop + PEG in place Gastrointestinal: soft, non-tender, no distention, positive bowel sounds Musculoskeletal: no edema, pulses present Neurological: normal sensation, moves all 4 limbs Skin: normal turgor, cap refill <2 seconds Dx/Plan (1) Acute respiratory failure with hypoxia and hypercapnia Code(s): J96.01 - ACUTE RESPIRATORY FAILURE WITH HYPOXIA; J96.02 - ACUTE RESPIRATORY FAILURE WITH HYPERCAPNIA Status: Acute Comment: Resolved, s/p mech ventilation and extubation 02/22/18 (2) Toxic metabolic encephalopathy Code(s): G92 - TOXIC ENCEPHALOPATHY Status: Acute Comment: Improved, multifactorial (3) Community acquired bacterial pneumonia Code(s): J15.9 - UNSPECIFIED BACTERIAL PNEUMONIA Status: Acute Comment: Moraxella spp, continue Omnicef (4) Dysphagia Code(s): R13.10 - DYSPHAGIA, UNSPECIFIED Status: Acute Qualifiers: Dysphagia type: oropharyngeal phase Qualified Code(s): R13.12 - Dysphagia, oropharyngeal phase Comment: s/p PEG tube placement 02/27/18, start TF's with Jevity 1.5 (5) Status post insertion of percutaneous endoscopic gastrostomy (PEG) tube Code(s): Z93.1 - GASTROSTOMY STATUS Status: Acute (6) Hypernatremia Code(s): E87.0 - HYPEROSMOLALITY AND HYPERNATREMIA Status: Acute Comment: Increase free-H2O, serial Na+ - Plan continue antibiotics, PT/OT, aids social worker, speech therapy, respiratory therapy, DVT proph w/SCDs Stable currently -: Start TF's 02/27/18 -: continue PT/OT -: Rehab/SNF options -: AM lab: BMP, CBC, Mg++, PO3 * .
[2018-02-27] MEDS: Cefdinir 300 MG CAP PO SCH (21:15)
[2018-02-28] MEDS ORDERED: Nicotine 14 MG PATCH TOP SCH (01:00)
[2018-02-28] MEDS: Nicotine 14 MG PATCH ONE ×2 (01:07→01:09)
[2018-02-28 05:15] LABS: Anion Gap 14 mmol/L (10-20); BUN (Urea Nitrogen) 27 mg/dL (8.4-25.7); Calc. Creatinine Clearance 146 mL/min (70-130); Calcium 10.2 mg/dL (7.8-10.44); Carbon Dioxide 31 mmol/L (23-31); Chloride 112 mmol/L (98-107); Estimated GFR-MDRD Greater than 90; Glucose 116 mg/dL (80-115); Magnesium 2.5 mg/dL (1.6-2.6); Potassium 3.9 mmol/L (3.5-5.1); Sodium 153 mmol/L (136-145)
[2018-02-28 05:16] LABS: Band 5 % (5-11); Hemoglobin 13.5 g/dL (14.0-18.0); Lymphocytes 11 % (21-51); MDiff Complete? YES; Macrocytosis SLIGHT = 6-15 cells (100X) (0-5/hpf); Mean Corpuscular HGB CONC 30.8 g/dL (32.0-36.0); Mean Corpuscular Hemoglobin 31.2 pg (27.0-31.0); Mean Platelet Volume 7.3 fL (7.4-10.4); Monocytes 7 % (0-10); Neutrophil 76 % (42-75); PLT Morphology Comment Appears Adequate; Platelet Count 314 thou/uL (130-400); RBC Distribution Width 12.7 % (11.5-14.5); Reactive Lymphocytes 1 % (0-10); Red Blood Cell (RBC) Count 4.33 mill/uL (4.70-6.10); White Blood Cell (WBC) Count 12.9 thou/uL (4.8-10.8)
[2018-02-28] MEDS: Famotidine/PF 20 mg/2ml Vial SLOW IVP SCH ×2 (08:22→20:33)
[2018-02-28] MEDS: Enoxaparin Sodium 40 MG/0.4 ML SYRINGE SC SCH (08:23)
[2018-02-28] MEDS: Cefdinir 300 MG CAP PO SCH ×2 (08:25→20:33)
[2018-02-28] MEDS: predniSONE 20 MG TAB PO SCH (08:25)
--- NOTE | 2018-02-28 11:52 | PDOC.PN ---
- Subjective Encounter Start Date: 02/28/18 Encounter Start Time: 07:40 Pt seen for followup re: acute hypoxic and hypercapnic respiratory failure. has expressive aphasia. Unable to complete ROS. - Objective Resuscitation Status: Resuscitation Status FULL:Full Resuscitation Vital Signs & Weight: Vital Signs (12 hours) Temp Pulse Resp BP Pulse Ox 02/28/18 09:42 98 02/28/18 09:41 102 H 16 02/28/18 07:43 97.6 F 103 H 23 H 158/81 H 92 L 02/28/18 04:42 98.2 F 92 20 167/99 H 92 L 02/28/18 00:44 97.6 F 93 23 H 158/71 H 95 Weight Admit Weight 260 lb 2.327 oz Weight 241 lb 1.6 oz Most Recent Monitor Data Heart Rate from ECG 97 NIBP 145/84 NIBP BP-Mean 104 Respiration from ECG 20 SpO2 93 I&O: 02/27/18 02/28/18 03/01/18 06:59 06:59 06:59 Intake Total 875 1830 Output Total 750 2400 Balance 125 -570 Result Diagrams: 02/28/18 04:40 02/28/18 04:40 Additional Labs: Accuchecks 02/28/18 02/27/18 02/27/18 04:29 22:29 17:57 POC Glucose 106 145 H 148 H 02/27/18 12:30 POC Glucose 135 H Phys Exam - Physical Examination Obese HEENT: moist MMs Neck: supple Respiratory: clear to auscultation bilateral Cardiovascular: RRR s/p PEG tube Neurological: moves all 4 limbs Psychiatric: normal affect Dx/Plan (1) Acute respiratory failure with hypoxia and hypercapnia Code(s): J96.01 - ACUTE RESPIRATORY FAILURE WITH HYPOXIA; J96.02 - ACUTE RESPIRATORY FAILURE WITH HYPERCAPNIA Status: Acute Comment: s/p mech ventilation and extubation 02/22/18 (2) Community acquired bacterial pneumonia Code(s): J15.9 - UNSPECIFIED BACTERIAL PNEUMONIA Status: Acute Comment: Moraxella spp, on Omnicef (3) Dysphagia Code(s): R13.10 - DYSPHAGIA, UNSPECIFIED Status: Acute Qualifiers: Dysphagia type: oropharyngeal phase Qualified Code(s): R13.12 - Dysphagia, oropharyngeal phase Comment: s/p PEG tube placement 02/27/18, on tube feeds with Jevity 1.5 (4) Toxic metabolic encephalopathy Code(s): G92 - TOXIC ENCEPHALOPATHY Status: Acute Comment: Improved, multifactorial, still has episodes of agitation - Plan plan discussed w/ family, continue antibiotics, PT/OT * . Review of Systems - Medications/Allergies Allergies/Adverse Reactions: Allergies Allergy/AdvReac Type Severity Reaction Status Date / Time No Known Allergies Allergy Unverified 02/16/18 18:43 Medications: Current Medications Acetaminophen (Tylenol) 650 mg [place] Q6H PRN PRN Reason: Fever > 101 or Mild Pain 1-3 Last Admin: 02/27/18 13:17 Dose: 650 mg Acetaminophen (Tylenol) 650 mg PO Q4H PRN PRN Reason: Headache/Fever/Mild Pain (1-3) Albuterol/Ipratropium (Duoneb) 3 ml NEB [id number] PRN PRN Reason: SOB &/or Wheezing Albuterol/Ipratropium (Duoneb) 3 ml EZPAP [id number] [facility] Last Admin: 02/28/18 09:41 Dose: 3 ml Bisacodyl (Dulcolax) 10 mg PO DAILYPRN PRN PRN Reason: Constipation Bisacodyl (Dulcolax) 10 mg OR DAILYPRN PRN PRN Reason: Constipation Cefdinir (Omnicef) 300 mg PO BID [facility] Last Admin: 02/28/18 08:25 Dose: 300 mg Dextrose/Water (Dextrose 50%) 25 gm SLOW IVP PRN PRN PRN Reason: Hypoglycemia Enoxaparin Sodium (Lovenox) 40 mg SC 0900 [facility] Last Admin: 02/28/18 08:23 Dose: 40 mg Famotidine (Pepcid) 20 mg SLOW IVP Q12HR [facility] Last Admin: 02/28/18 08:22 Dose: 20 mg Glucagon (Glucagon) 1 mg IM PRN PRN PRN Reason: Hypoglycemia Potassium Chloride 40 meq/ (Sodium Chloride) 270 mls @ 135 mls/hr IVPB ASDIR PRN PRN Reason: FOR SERUM K+ 2.5 - 3.5 Potassium Chloride 40 meq/ (Device) 100 mls @ 50 mls/hr IVPB ASDIR PRN PRN Reason: FOR SERUM K+ 2.5 - 3.5 Magnesium Sulfate 1 gm/ Sodium (Chloride) 102 mls @ 102 mls/hr IV PRN PRN PRN Reason: MAG LEVEL 1.4 - 2.0 Magnesium Sulfate 2 gm/ Device 100 mls @ 100 mls/hr IVPB ASDIR PRN PRN Reason: MAGNESIUM < 1.4 Potassium Phosphate 9 mmol/ (Sodium Chloride) 103 mls @ 25.75 mls/hr IVPB ASDIR PRN PRN Reason: Phosphate 1.0-1.8 Potassium Phosphate 12 mmol/ (Sodium Chloride) 254 mls @ 63.5 mls/hr IV ASDIR PRN PRN Reason: Serum phosphate 0.5-0.9 Potassium Phosphate 15 mmol/ (Sodium Chloride) 255 mls @ 63.75 mls/hr IV ASDIR PRN PRN Reason: Serum Phos < 0.5 Dextrose/Water (D5w) 1,000 mls @ 0 mls/hr IV .Q0M PRN PRN Reason: Hypoglycemia Dextrose/Sodium Chloride (D5 0.9% Ns) 1,000 mls @ 50 mls/hr IV .Q20H [facility] Last Admin: 02/27/18 18:44 Dose: 1,000 mls Insulin Human Lispro (Humalog) 0 units SC .MILD SLIDING SCALE PRN PRN Reason: Mild Correctional Scale Last Admin: 02/22/18 17:13 Dose: 2 unit Magnesium Oxide (Magnesium Oxide) 400 mg PO BIDPRN PRN PRN Reason: FOR SERUM MAG 1.4 - 2.0 Magnesium Oxide (Magnesium Oxide) 800 mg PO PRN PRN PRN Reason: FOR SERUM MAG < 1.4 Mineral Oil/White Petrolatum (Lacri-Lube Ointment) 0 gm EA EYE PRN PRN PRN Reason: Dry Eyes Miscellaneous Medication (Ventilator Sedation Protocol) 1 each FS ONE [facility] Stop: 03/18/18 21:46 Miscellaneous Medication (Ccu Electrolyte Replacement) 1 each IVPB ONE [facility] Stop: 03/18/18 21:42 Miscellaneous Medication (Pharmacy To Dose) 1 each IVPB PRN PRN PRN Reason: Pharmacy to dose Miscellaneous Medication (Phos-Nak) 1 pkt PO TIDPRN PRN PRN Reason: FOR PHOS LEVEL 1.0 - 1.8 Miscellaneous Medication (Phos-Nak) 2 pkt PO TIDPRN PRN PRN Reason: FOR PHOS LEVEL 0.5 - 1.0 Discontinue Previous Narcotic Pain Medications And Benzodiazepines 1 each FS .ONE [facility] Stop: 03/18/18 21:43 Ccu Electrolyte (Replacement Protocol) 0 each FS PRN PRN PRN Reason: FOR ELECTROLYTE REPLACEMENT Potassium Chloride (K-Dur) 40 meq PO ASDIR PRN PRN Reason: FOR SERUM K+ 2.5 - 3.5 Potassium Chloride (Klor-Con) 40 meq PER TUBE ASDIR PRN PRN Reason: FOR SERUM K+ 2.5-3.5 Prednisone (Prednisone) 40 mg PO QAM-[facility] Last Admin: 02/28/18 08:25 Dose: 40 mg Senna/Docusate Sodium (Senokot S) 2 tab PO BIDPRN PRN PRN Reason: Constipation Sodium Chloride (Flush - Normal Saline) 10 ml IVF Q12HR [facility] Last Admin: 02/28/18 08:39 Dose: Not Given Sodium Chloride (Flush - Normal Saline) 10 ml IVF PRN PRN PRN Reason: Saline Flush Last Admin: 02/26/18 06:34 Dose: 10 ml
--- NOTE | 2018-02-28 12:54 | PRG ---
DATE OF SERVICE: 02/28/2018 SUBJECTIVE: This morning, he is awake and responsive, complaining of pain, no shortness of breath. OBJECTIVE: VITAL SIGNS: His sats are 92% on 2 liters, respirations 20, pulse 103, temperature , blood pres sure 150/81. CHEST: Decreased breath sounds, no wheezing. CARDIAC: Normal S1, S2, no gallops . LABORATORY DATA: His sodium is 153. Electrolytes are normal. IMPRESSION: 1. Chronic obstructive pulmonary disease exacerbation. 2. Severe deconditioning. PLAN: Continue present neb treatment. Supportive care and PT. We will follow.
[2018-02-28] MEDS: Dextrose 5 % And 0.9 % NaCl 1,000 ML IV SCH (17:44)
--- NOTE | 2018-02-28 19:44 | PRG ---
DATE OF SERVICE: 02/28/2018 SUBJECTIVE: This is a 68-year-old male who underwent an EGD and PEG tube placement done by Dr. Jhon Ramirez yesterday. This is a followup visit for Dr. Jhon Ramirez. He is tolerating tube feedi ngs very well. The PEG tube site appears healthy and the bumper loosened up. Abdomen is soft and no ntender. RECOMMENDATIONS: 1. Continue tube feeding as tolerated. 2. We will sign off. If there are any new problems, please call us back.
[2018-03-01] MEDS: Dextrose 5 % And 0.9 % NaCl 1,000 ML IV SCH (00:30)
[2018-03-01 04:17] LABS: Mean Corpuscular HGB CONC 29.9 g/dL (32.0-36.0); Mean Corpuscular Hemoglobin 30.8 pg (27.0-31.0); Mean Platelet Volume 7.2 fL (7.4-10.4); Platelet Count 333 thou/uL (130-400); RBC Distribution Width 12.4 % (11.5-14.5); Red Blood Cell (RBC) Count 4.24 mill/uL (4.70-6.10); White Blood Cell (WBC) Count 11.5 thou/uL (4.8-10.8)
[2018-03-01 04:18] LABS: Band 5 % (5-11); Lymphocytes 15 % (21-51); MDiff Complete? YES; Monocytes 7 % (0-10); Neutrophil 71 % (42-75); PLT Morphology Comment Appears Adequate; RBC Morphology Normal; Reactive Lymphocytes 2 % (0-10)
[2018-03-01 04:28] LABS: Anion Gap 11 mmol/L (10-20); BUN (Urea Nitrogen) 28 mg/dL (8.4-25.7); Calc. Creatinine Clearance 136 mL/min (70-130); Calcium 10.1 mg/dL (7.8-10.44); Carbon Dioxide 36 mmol/L (23-31); Chloride 112 mmol/L (98-107); Estimated GFR-MDRD Greater than 90; Glucose 215 mg/dL (80-115); Magnesium 2.3 mg/dL (1.6-2.6); Potassium 3.8 mmol/L (3.5-5.1); Sodium 155 mmol/L (136-145)
[2018-03-01] MEDS: HumaLOG 300 UNITS/3 ML VIAL SC PRN (05:57)
[2018-03-01] MEDS: Cefdinir 300 MG CAP PO SCH ×2 (09:54→20:57)
[2018-03-01] MEDS: predniSONE 20 MG TAB PO SCH (09:54)
[2018-03-01] MEDS: Famotidine/PF 20 mg/2ml Vial SLOW IVP SCH ×2 (09:55→20:58)
[2018-03-01] MEDS: Enoxaparin Sodium 40 MG/0.4 ML SYRINGE SC SCH (09:55)
--- NOTE | 2018-03-01 11:42 | PRG ---
DATE OF SERVICE: 03/01/2018 SUBJECTIVE: This morning, he is awake and responsive. Poor cough. OBJECTIVE: VITAL SIGNS: His sats are 98 on 2 liters, pulse 106, temperature 97, blood pressure is 134/81. LUNGS: He has extensive rhonchi and crackles. CARDIAC: Normal S1 and S2, no gallops. ABDOMEN: Soft. LABORATORY DATA: White count 11,000, H and H 13 and 43, platelet count is normal. Sodium is 155. IMPRESSION: Respiratory failure, chronic obstructive pulmonary disease, electrolyte imbalance. PLAN: Increase free water, continue neb treatments, supportive care.
--- NOTE | 2018-03-01 13:36 | PDOC.PN ---
- Subjective Encounter Start Date: 03/01/18 Encounter Start Time: 09:20 Pt seen for followup re: acute hypoxic and hypercapnic respiratory failure. Able to answer questions (hoarse voice), denies chest pain, shortness of breath , fevers or chills. - Objective Resuscitation Status: Resuscitation Status FULL:Full Resuscitation MAR Reviewed: Yes Vital Signs & Weight: Vital Signs (12 hours) Temp Pulse Resp BP BP Pulse Ox 03/01/18 11:45 97.5 F L 105 H 23 H 138/74 95 03/01/18 08:00 98 03/01/18 07:43 106 H 22 H 92 L 03/01/18 07:20 97.7 F 99 21 H 134/81 94 L 03/01/18 04:31 97.8 F 94 20 145/72 H 95 Weight Admit Weight 260 lb 2.327 oz Weight 243 lb 3 oz Most Recent Monitor Data Heart Rate from ECG 97 NIBP 145/84 NIBP BP-Mean 104 Respiration from ECG 20 SpO2 93 I&O: 02/28/18 03/01/18 03/02/18 06:59 06:59 06:59 Intake Total 1830 3510 60 Output Total 2400 1200 Balance -570 2310 60 Result Diagrams: 03/01/18 03:54 03/01/18 03:54 Additional Labs: Accuchecks 03/01/18 02/28/18 02/28/18 12:02 22:07 17:25 POC Glucose 151 H 195 H 159 H EKG Reviewed by me: Yes (Tele: sinus tachycardia) Phys Exam - Physical Examination Obese HEENT: moist MMs Neck: supple Respiratory: clear to auscultation bilateral Cardiovascular: RRR Gastrointestinal: soft PEG tube Neurological: moves all 4 limbs Psychiatric: normal affect Dx/Plan (1) Acute respiratory failure with hypoxia and hypercapnia Code(s): J96.01 - ACUTE RESPIRATORY FAILURE WITH HYPOXIA; J96.02 - ACUTE RESPIRATORY FAILURE WITH HYPERCAPNIA Status: Acute Comment: Improving, s/p extubation 02/22/18 (2) Community acquired bacterial pneumonia Code(s): J15.9 - UNSPECIFIED BACTERIAL PNEUMONIA Status: Acute Comment: continue Omnicef for Moraxella spp (3) Dysphagia Code(s): R13.10 - DYSPHAGIA, UNSPECIFIED Status: Acute Qualifiers: Dysphagia type: oropharyngeal phase Qualified Code(s): R13.12 - Dysphagia, oropharyngeal phase Comment: continue tube feeds with Jevity 1.5 (4) Toxic metabolic encephalopathy Code(s): G92 - TOXIC ENCEPHALOPATHY Status: Acute Comment: Improved - Plan * . Review of Systems - Medications/Allergies Allergies/Adverse Reactions: Allergies Allergy/AdvReac Type Severity Reaction Status Date / Time No Known Allergies Allergy Unverified 02/16/18 18:43 Medications: Current Medications Acetaminophen (Tylenol) 650 mg [place] Q6H PRN PRN Reason: Fever > 101 or Mild Pain 1-3 Last Admin: 02/27/18 13:17 Dose: 650 mg Acetaminophen (Tylenol) 650 mg PO Q4H PRN PRN Reason: Headache/Fever/Mild Pain (1-3) Albuterol/Ipratropium (Duoneb) 3 ml NEB [id number] PRN PRN Reason: SOB &/or Wheezing Albuterol/Ipratropium (Duoneb) 3 ml EZPAP [id number] [facility] Last Admin: 03/01/18 07:43 Dose: 3 ml Bisacodyl (Dulcolax) 10 mg PO DAILYPRN PRN PRN Reason: Constipation Bisacodyl (Dulcolax) 10 mg [place] DAILYPRN PRN PRN Reason: Constipation Cefdinir (Omnicef) 300 mg PO BID [facility] Last Admin: 03/01/18 09:54 Dose: 300 mg Dextrose/Water (Dextrose 50%) 25 gm SLOW IVP PRN PRN PRN Reason: Hypoglycemia Enoxaparin Sodium (Lovenox) 40 mg SC 0900 [facility] Last Admin: 03/01/18 09:55 Dose: 40 mg Famotidine (Pepcid) 20 mg SLOW IVP Q12HR [facility] Last Admin: 03/01/18 09:55 Dose: 20 mg Glucagon (Glucagon) 1 mg IM PRN PRN PRN Reason: Hypoglycemia Potassium Chloride 40 meq/ (Sodium Chloride) 270 mls @ 135 mls/hr IVPB ASDIR PRN PRN Reason: FOR SERUM K+ 2.5 - 3.5 Potassium Chloride 40 meq/ (Device) 100 mls @ 50 mls/hr IVPB ASDIR PRN PRN Reason: FOR SERUM K+ 2.5 - 3.5 Magnesium Sulfate 1 gm/ Sodium (Chloride) 102 mls @ 102 mls/hr IV PRN PRN PRN Reason: MAG LEVEL 1.4 - 2.0 Magnesium Sulfate 2 gm/ Device 100 mls @ 100 mls/hr IVPB ASDIR PRN PRN Reason: MAGNESIUM < 1.4 Potassium Phosphate 9 mmol/ (Sodium Chloride) 103 mls @ 25.75 mls/hr IVPB ASDIR PRN PRN Reason: Phosphate 1.0-1.8 Potassium Phosphate 12 mmol/ (Sodium Chloride) 254 mls @ 63.5 mls/hr IV ASDIR PRN PRN Reason: Serum phosphate 0.5-0.9 Potassium Phosphate 15 mmol/ (Sodium Chloride) 255 mls @ 63.75 mls/hr IV ASDIR PRN PRN Reason: Serum Phos < 0.5 Dextrose/Water (D5w) 1,000 mls @ 0 mls/hr IV .Q0M PRN PRN Reason: Hypoglycemia Dextrose/Sodium Chloride (D5 0.9% Ns) 1,000 mls @ 50 mls/hr IV .Q20H [facility] Last Admin: 03/01/18 00:30 Dose: Not Given Insulin Human Lispro (Humalog) 0 units SC .MILD SLIDING SCALE PRN PRN Reason: Mild Correctional Scale Last Admin: 03/01/18 05:57 Dose: 3 unit Magnesium Oxide (Magnesium Oxide) 400 mg PO BIDPRN PRN PRN Reason: FOR SERUM MAG 1.4 - 2.0 Magnesium Oxide (Magnesium Oxide) 800 mg PO PRN PRN PRN Reason: FOR SERUM MAG < 1.4 Mineral Oil/White Petrolatum (Lacri-Lube Ointment) 0 gm EA EYE PRN PRN PRN Reason: Dry Eyes Miscellaneous Medication (Ventilator Sedation Protocol) 1 each FS ONE [facility] Stop: 03/18/18 21:46 Miscellaneous Medication (Ccu Electrolyte Replacement) 1 each IVPB ONE [facility] Stop: 03/18/18 21:42 Miscellaneous Medication (Pharmacy To Dose) 1 each IVPB PRN PRN PRN Reason: Pharmacy to dose Miscellaneous Medication (Phos-Nak) 1 pkt PO TIDPRN PRN PRN Reason: FOR PHOS LEVEL 1.0 - 1.8 Miscellaneous Medication (Phos-Nak) 2 pkt PO TIDPRN PRN PRN Reason: FOR PHOS LEVEL 0.5 - 1.0 Discontinue Previous Narcotic Pain Medications And Benzodiazepines 1 each FS .ONE [facility] Stop: 03/18/18 21:43 Ccu Electrolyte (Replacement Protocol) 0 each FS PRN PRN PRN Reason: FOR ELECTROLYTE REPLACEMENT Potassium Chloride (K-Dur) 40 meq PO ASDIR PRN PRN Reason: FOR SERUM K+ 2.5 - 3.5 Potassium Chloride (Klor-Con) 40 meq PER TUBE ASDIR PRN PRN Reason: FOR SERUM K+ 2.5-3.5 Prednisone (Prednisone) 40 mg PO QAM-WM [facility] Last Admin: 03/01/18 09:54 Dose: 40 mg Senna/Docusate Sodium (Senokot S) 2 tab PO BIDPRN PRN PRN Reason: Constipation Sodium Chloride (Flush - Normal Saline) 10 ml IVF Q12HR [facility] Last Admin: 03/01/18 09:55 Dose: 10 ml Sodium Chloride (Flush - Normal Saline) 10 ml IVF PRN PRN PRN Reason: Saline Flush Last Admin: 02/26/18 06:34 Dose: 10 ml
[2018-03-01] MEDS ORDERED: Nicotine 21 MG PATCH TOP SCH (18:30)
[2018-03-02] MEDS: Dextrose 5 % And 0.9 % NaCl 1,000 ML IV SCH ×2 (02:06→19:50)
[2018-03-02 04:28] LABS: Hemoglobin 12.3 g/dL (14.0-18.0); Hypochromia SLIGHT = 6-15 cells (100X) (0-5/hpf); Lymphocytes 22 % (21-51); MDiff Complete? YES; Macrocytosis SLIGHT = 6-15 cells (100X) (0-5/hpf); Mean Corpuscular Hemoglobin 31.8 pg (27.0-31.0); Mean Platelet Volume 6.9 fL (7.4-10.4); Monocytes 3 % (0-10); Neutrophil 75 % (42-75); PLT Morphology Comment Appears Adequate; Platelet Count 280 thou/uL (130-400); Polychromasia SLIGHT = 2-3 cells (100X) (0-2/hpf); RBC Distribution Width 12.3 % (11.5-14.5); Red Blood Cell (RBC) Count 3.85 mill/uL (4.70-6.10); White Blood Cell (WBC) Count 10.5 thou/uL (4.8-10.8)
[2018-03-02 04:30] LABS: BUN (Urea Nitrogen) 26 mg/dL (8.4-25.7); Calc. Creatinine Clearance 147 mL/min (70-130); Calcium 9.9 mg/dL (7.8-10.44); Estimated GFR-MDRD Greater than 90; Glucose 167 mg/dL (80-115); Magnesium 2.4 mg/dL (1.6-2.6)
[2018-03-02 04:39] LABS: Anion Gap 13 mmol/L (10-20); Carbon Dioxide 34 mmol/L (23-31); Chloride 112 mmol/L (98-107); Sodium 155 mmol/L (136-145)
[2018-03-02] MEDS: predniSONE 20 MG TAB PO SCH (08:08)
[2018-03-02] MEDS: Enoxaparin Sodium 40 MG/0.4 ML SYRINGE SC SCH (08:08)
[2018-03-02] MEDS: Cefdinir 300 MG CAP PO SCH ×2 (08:08→20:04)
[2018-03-02] MEDS: Famotidine/PF 20 mg/2ml Vial SLOW IVP SCH ×2 (08:09→20:04)
[2018-03-02] MEDS: Nicotine 21 MG PATCH TOP SCH (08:10)
[2018-03-02] MEDS: HumaLOG 300 UNITS/3 ML VIAL SC PRN (12:53)
--- NOTE | 2018-03-02 15:13 | PRG ---
DATE OF SERVICE: 03/02/2018 SUBJECTIVE: Mr. Johnson is still confused. He is more alert today than he was Friday. OBJECTIVE: VITAL SIGNS: He is afebrile, heart rate is 93, respiratory rate is 20, oximetry is 93, blood pressur e 143/67. GENERAL: His judgment is extremely poor. He thinks he can get up and walk out of here. LUNGS: Clear anteriorly. HEART: Regular rhythm. ABDOMEN: Soft. LABORATORY DATA: White count 10.5, hemoglobin 12.3, platelets 280,000. Sodium 155, potassium 4, chl oride 112, bicarbonate 34, BUN 26, creatinine 0.73. IMPRESSION: 1. Recent pneumonia with intubation. 2. Swallowing dysfunction. 3. Encephalopathy that is persistent and slowly improving. 4. Hyperosmolar state. He was in positive fluid balance the last 2 days. He probably needs to be switched to D5W. Try decreasing his prednisone and see if this helps with en cephalopathy. He will need placement eventually.
--- NOTE | 2018-03-02 16:52 | PDOC.PN ---
- Subjective Encounter Start Date: 03/02/18 Encounter Start Time: 12:00 Pt seen for followup re: acute hypercapnic and hypoxic respiratory failure. Feels weak, not answering questions. Could not complete ROS. - Objective Resuscitation Status: Resuscitation Status FULL:Full Resuscitation MAR Reviewed: Yes Vital Signs & Weight: Vital Signs (12 hours) Temp Pulse Resp BP Pulse Ox 03/02/18 15:46 98.6 F 98 18 130/68 03/02/18 12:44 94 18 96 03/02/18 11:04 98.4 F 93 20 143/67 H 93 L 03/02/18 07:32 98.0 F 90 20 150/80 H 97 03/02/18 07:25 93 14 97 Weight Admit Weight 260 lb 2.327 oz Weight 246 lb 6.4 oz Most Recent Monitor Data Heart Rate from ECG 97 NIBP 145/84 NIBP BP-Mean 104 Respiration from ECG 20 SpO2 93 I&O: 03/01/18 03/02/18 03/03/18 06:59 06:59 06:59 Intake Total 3510 2040 Output Total 1200 1400 Balance 2310 640 Result Diagrams: 03/02/18 03:59 03/02/18 03:59 Additional Labs: Accuchecks 03/02/18 03/02/18 03/01/18 12:09 05:30 23:59 POC Glucose 194 H 154 H 160 H 03/01/18 17:18 POC Glucose 217 H EKG Reviewed by me: Yes (Tele: NSR) Phys Exam - Physical Examination Obesity HEENT: moist MMs Neck: supple Respiratory: clear to auscultation bilateral Cardiovascular: RRR Gastrointestinal: soft G-tube Neurological: moves all 4 limbs Psychiatric: normal affect Dx/Plan (1) Acute respiratory failure with hypoxia and hypercapnia Code(s): J96.01 - ACUTE RESPIRATORY FAILURE WITH HYPOXIA; J96.02 - ACUTE RESPIRATORY FAILURE WITH HYPERCAPNIA Status: Acute Comment: Improving (2) Community acquired bacterial pneumonia Code(s): J15.9 - UNSPECIFIED BACTERIAL PNEUMONIA Status: Acute Comment: continue Omnicef (3) Dysphagia Code(s): R13.10 - DYSPHAGIA, UNSPECIFIED Status: Acute Qualifiers: Dysphagia type: oropharyngeal phase Qualified Code(s): R13.12 - Dysphagia, oropharyngeal phase Comment: continue tube feeds with Jevity 1.5 (4) Toxic metabolic encephalopathy Code(s): G92 - TOXIC ENCEPHALOPATHY Status: Acute Comment: Improved (5) Hypernatremia Code(s): E87.0 - HYPEROSMOLALITY AND HYPERNATREMIA Status: Acute Comment: change IV fluids to D5W - Plan * . Review of Systems - Medications/Allergies Allergies/Adverse Reactions: Allergies Allergy/AdvReac Type Severity Reaction Status Date / Time No Known Allergies Allergy Unverified 02/16/18 18:43 Medications: Current Medications Acetaminophen (Tylenol) 650 mg [place] Q6H PRN PRN Reason: Fever > 101 or Mild Pain 1-3 Last Admin: 02/27/18 13:17 Dose: 650 mg Acetaminophen (Tylenol) 650 mg PO Q4H PRN PRN Reason: Headache/Fever/Mild Pain (1-3) Albuterol/Ipratropium (Duoneb) 3 ml NEB [id number] PRN PRN Reason: SOB &/or Wheezing Albuterol/Ipratropium (Duoneb) 3 ml EZPAP [id number] [facility] Last Admin: 03/02/18 12:44 Dose: 3 ml Bisacodyl (Dulcolax) 10 mg PO DAILYPRN PRN PRN Reason: Constipation Bisacodyl (Dulcolax) 10 mg [place] DAILYPRN PRN PRN Reason: Constipation Cefdinir (Omnicef) 300 mg PO BID [facility] Last Admin: 03/02/18 08:08 Dose: 300 mg Dextrose/Water (Dextrose 50%) 25 gm SLOW IVP PRN PRN PRN Reason: Hypoglycemia Enoxaparin Sodium (Lovenox) 40 mg SC 0900 [facility] Last Admin: 03/02/18 08:08 Dose: 40 mg Famotidine (Pepcid) 20 mg SLOW IVP Q12HR [facility] Last Admin: 03/02/18 08:09 Dose: 20 mg Glucagon (Glucagon) 1 mg IM PRN PRN PRN Reason: Hypoglycemia Potassium Chloride 40 meq/ (Sodium Chloride) 270 mls @ 135 mls/hr IVPB ASDIR PRN PRN Reason: FOR SERUM K+ 2.5 - 3.5 Potassium Chloride 40 meq/ (Device) 100 mls @ 50 mls/hr IVPB ASDIR PRN PRN Reason: FOR SERUM K+ 2.5 - 3.5 Magnesium Sulfate 1 gm/ Sodium (Chloride) 102 mls @ 102 mls/hr IV PRN PRN PRN Reason: MAG LEVEL 1.4 - 2.0 Magnesium Sulfate 2 gm/ Device 100 mls @ 100 mls/hr IVPB ASDIR PRN PRN Reason: MAGNESIUM < 1.4 Potassium Phosphate 9 mmol/ (Sodium Chloride) 103 mls @ 25.75 mls/hr IVPB ASDIR PRN PRN Reason: Phosphate 1.0-1.8 Potassium Phosphate 12 mmol/ (Sodium Chloride) 254 mls @ 63.5 mls/hr IV ASDIR PRN PRN Reason: Serum phosphate 0.5-0.9 Potassium Phosphate 15 mmol/ (Sodium Chloride) 255 mls @ 63.75 mls/hr IV ASDIR PRN PRN Reason: Serum Phos < 0.5 Dextrose/Water (D5w) 1,000 mls @ 0 mls/hr IV .Q0M PRN PRN Reason: Hypoglycemia Dextrose/Water (D5w) 1,000 mls @ 75 mls/hr IV .[id number] [facility] Insulin Human Lispro (Humalog) 0 units SC .MILD SLIDING SCALE PRN PRN Reason: Mild Correctional Scale Last Admin: 03/02/18 12:53 Dose: 2 unit Magnesium Oxide (Magnesium Oxide) 400 mg PO BIDPRN PRN PRN Reason: FOR SERUM MAG 1.4 - 2.0 Magnesium Oxide (Magnesium Oxide) 800 mg PO PRN PRN PRN Reason: FOR SERUM MAG < 1.4 Mineral Oil/White Petrolatum (Lacri-Lube Ointment) 0 gm EA EYE PRN PRN PRN Reason: Dry Eyes Miscellaneous Medication (Ccu Electrolyte Replacement) 1 each IVPB ONE [facility] Stop: 03/18/18 21:42 Miscellaneous Medication (Pharmacy To Dose) 1 each IVPB PRN PRN PRN Reason: Pharmacy to dose Miscellaneous Medication (Phos-Nak) 1 pkt PO TIDPRN PRN PRN Reason: FOR PHOS LEVEL 1.0 - 1.8 Miscellaneous Medication (Phos-Nak) 2 pkt PO TIDPRN PRN PRN Reason: FOR PHOS LEVEL 0.5 - 1.0 Nicotine (Nicoderm Patch) 21 mg TOP DAILY [facility] Last Admin: 03/02/18 08:10 Dose: 21 mg Discontinue Previous Narcotic Pain Medications And Benzodiazepines 1 each FS .ONE [facility] Stop: 03/18/18 21:43 Ccu Electrolyte (Replacement Protocol) 0 each FS PRN PRN PRN Reason: FOR ELECTROLYTE REPLACEMENT Potassium Chloride (K-Dur) 40 meq PO ASDIR PRN PRN Reason: FOR SERUM K+ 2.5 - 3.5 Potassium Chloride (Klor-Con) 40 meq PER TUBE ASDIR PRN PRN Reason: FOR SERUM K+ 2.5-3.5 Prednisone (Prednisone) 20 mg PO QAM-[facility] Senna/Docusate Sodium (Senokot S) 2 tab PO BIDPRN PRN PRN Reason: Constipation Sodium Chloride (Flush - Normal Saline) 10 ml IVF Q12HR [facility] Last Admin: 03/02/18 08:09 Dose: 10 ml Sodium Chloride (Flush - Normal Saline) 10 ml IVF PRN PRN PRN Reason: Saline Flush Last Admin: 02/26/18 06:34 Dose: 10 ml
[2018-03-02] MEDS: Dextrose 5% in Water 1,000 ML IV SCH (19:39)
[2018-03-03 04:34] LABS: BUN (Urea Nitrogen) 22 mg/dL (8.4-25.7); Calc. Creatinine Clearance 149 mL/min (70-130); Calcium 9.5 mg/dL (7.8-10.44); Estimated GFR-MDRD Greater than 90; Glucose 152 mg/dL (80-115); Magnesium 2.2 mg/dL (1.6-2.6)
[2018-03-03 04:38] LABS: Band 4 % (5-11); Hemoglobin 11.4 g/dL (14.0-18.0); Lymphocytes 31 % (21-51); MDiff Complete? YES; Mean Corpuscular HGB CONC 30.8 g/dL (32.0-36.0); Mean Corpuscular Hemoglobin 31.5 pg (27.0-31.0); Monocytes 7 % (0-10); Neutrophil 58 % (42-75); PLT Morphology Comment Appears Adequate; Platelet Count 239 thou/uL (130-400); RBC Distribution Width 12.3 % (11.5-14.5); Red Blood Cell (RBC) Count 3.63 mill/uL (4.70-6.10); White Blood Cell (WBC) Count 10.1 thou/uL (4.8-10.8)
[2018-03-03 04:43] LABS: Anion Gap 11 mmol/L (10-20); Carbon Dioxide 35 mmol/L (23-31); Chloride 105 mmol/L (98-107); Potassium 4.4 mmol/L (3.5-5.1); Sodium 147 mmol/L (136-145)
[2018-03-03] MEDS: Dextrose 5% in Water 1,000 ML IV SCH ×2 (05:13→21:04)
[2018-03-03] MEDS: Famotidine/PF 20 mg/2ml Vial SLOW IVP SCH ×2 (09:28→21:03)
[2018-03-03] MEDS: predniSONE 20 MG TAB PO SCH (09:29)
[2018-03-03] MEDS: Enoxaparin Sodium 40 MG/0.4 ML SYRINGE SC SCH (09:29)
[2018-03-03] MEDS: Cefdinir 300 MG CAP PO SCH ×2 (09:29→21:03)
[2018-03-03] MEDS: Nicotine 21 MG PATCH TOP SCH (09:30)
--- NOTE | 2018-03-03 11:58 | PRG ---
DATE OF SERVICE: 03/03/2018 Mr. Johnson remains afebrile, heart rate is 85, respiratory rate 20, oximetry 93 on 2 liters, blood pr essure 148/70. Overall, his exam is unchanged. LABORATORY DATA: White count 10.1, hemoglobin 11.4, platelets 239. Sodium 147, potassium 4.4, chloride 105, bicarbonate 35, BUN 22, creatinine 0.73. IMPRESSION: 1. Status post respiratory failure with pneumonia and a chronic obstructive pulmonary disease exacer bation. 2. Deconditioning. 3. Chronic respiratory failure on oxygen prior to admission. He is followed at the [place]. 4. Oropharyngeal transfer dysfunction. This apparently has improved. He had a Dobbhoff transiently , but pulled it out. 5. Encephalopathy, ? hypoxemia related. 6. Status post PEG placement 02/27/2018. PLAN: Continue supportive care. Placement in a fdc is the next step.
--- NOTE | 2018-03-03 14:23 | PDOC.PN ---
- Subjective Encounter Start Date: 03/03/18 Encounter Start Time: 07:40 Pt seen for followup re: acute hypoxic respiratory failure. Says he feels tired. - Objective Resuscitation Status: Resuscitation Status FULL:Full Resuscitation MAR Reviewed: Yes Vital Signs & Weight: Vital Signs (12 hours) Temp Pulse Pulse Pulse Resp BP BP 03/03/18 12:02 86 16 03/03/18 11:08 98.7 F 85 20 03/03/18 09:49 95 94 148/70 H 157/75 H 03/03/18 08:00 03/03/18 07:30 98.2 F 101 H 25 H 03/03/18 07:14 88 16 03/03/18 04:33 98.9 F 83 16 BP Pulse Ox 03/03/18 12:02 91 L 03/03/18 11:08 138/78 93 L 03/03/18 09:49 03/03/18 08:00 93 L 03/03/18 07:30 162/88 H 03/03/18 07:14 93 L 03/03/18 04:33 152/86 H 94 L Weight Admit Weight 260 lb 2.327 oz Weight 250 lb 3.2 oz Most Recent Monitor Data Heart Rate from ECG 97 NIBP 145/84 NIBP BP-Mean 104 Respiration from ECG 20 SpO2 93 I&O: 03/02/18 03/03/18 03/04/18 06:59 06:59 06:59 Intake Total 2040 2440 440 Output Total 1400 1650 Balance 640 790 440 Result Diagrams: 03/03/18 04:13 03/03/18 04:13 Additional Labs: Accuchecks 03/03/18 03/03/18 03/02/18 10:50 04:08 21:59 POC Glucose 127 H 139 H 140 H 03/02/18 17:54 POC Glucose 170 H EKG Reviewed by me: Yes (Tele: NSR) Phys Exam - Physical Examination Obese Dry mucosae Neck: supple Respiratory: clear to auscultation bilateral Cardiovascular: RRR Gastrointestinal: positive bowel sounds G-tube Neurological: moves all 4 limbs Psychiatric: normal affect Dx/Plan (1) Acute respiratory failure with hypoxia and hypercapnia Code(s): J96.01 - ACUTE RESPIRATORY FAILURE WITH HYPOXIA; J96.02 - ACUTE RESPIRATORY FAILURE WITH HYPERCAPNIA Status: Acute Comment: Improving, awaiting bed at an outside facility (2) Community acquired bacterial pneumonia Code(s): J15.9 - UNSPECIFIED BACTERIAL PNEUMONIA Status: Acute Comment: continue Omnicef (3) Dysphagia Code(s): R13.10 - DYSPHAGIA, UNSPECIFIED Status: Acute Qualifiers: Dysphagia type: oropharyngeal phase Qualified Code(s): R13.12 - Dysphagia, oropharyngeal phase Comment: continue tube feeds (4) Toxic metabolic encephalopathy Code(s): G92 - TOXIC ENCEPHALOPATHY Status: Acute Comment: Improved (5) Hypernatremia Code(s): E87.0 - HYPEROSMOLALITY AND HYPERNATREMIA Status: Acute Comment: Improving, changed IV fluids to D5W - Plan * . Review of Systems - Review of Systems Constitutional: weakness Respiratory: negative: Cough, Shortness of Breath, SOB with Excertion, Pleuritic Pain, Wheezing Cardiovascular: negative: chest pain, palpitations, orthopnea, paroxysmal nocturnal dyspnea, edema, light headedness - Medications/Allergies Allergies/Adverse Reactions: Allergies Allergy/AdvReac Type Severity Reaction Status Date / Time No Known Allergies Allergy Unverified 02/16/18 18:43 Medications: Current Medications Acetaminophen (Tylenol) 650 mg MN Q6H PRN PRN Reason: Fever > 101 or Mild Pain 1-3 Last Admin: 02/27/18 13:17 Dose: 650 mg Acetaminophen (Tylenol) 650 mg PO Q4H PRN PRN Reason: Headache/Fever/Mild Pain (1-3) Albuterol/Ipratropium (Duoneb) 3 ml NEB [id number] PRN PRN Reason: SOB &/or Wheezing Albuterol/Ipratropium (Duoneb) 3 ml EZPAP [id number] [facility] Last Admin: 03/03/18 12:02 Dose: 3 ml Bisacodyl (Dulcolax) 10 mg PO DAILYPRN PRN PRN Reason: Constipation Bisacodyl (Dulcolax) 10 mg MN DAILYPRN PRN PRN Reason: Constipation Cefdinir (Omnicef) 300 mg PO BID [facility] Last Admin: 03/03/18 09:29 Dose: 300 mg Dextrose/Water (Dextrose 50%) 25 gm SLOW IVP PRN PRN PRN Reason: Hypoglycemia Enoxaparin Sodium (Lovenox) 40 mg SC 0900 [facility] Last Admin: 03/03/18 09:29 Dose: 40 mg Famotidine (Pepcid) 20 mg SLOW IVP Q12HR [facility] Last Admin: 03/03/18 09:28 Dose: 20 mg Glucagon (Glucagon) 1 mg IM PRN PRN PRN Reason: Hypoglycemia Potassium Chloride 40 meq/ (Sodium Chloride) 270 mls @ 135 mls/hr IVPB ASDIR PRN PRN Reason: FOR SERUM K+ 2.5 - 3.5 Potassium Chloride 40 meq/ (Device) 100 mls @ 50 mls/hr IVPB ASDIR PRN PRN Reason: FOR SERUM K+ 2.5 - 3.5 Magnesium Sulfate 1 gm/ Sodium (Chloride) 102 mls @ 102 mls/hr IV PRN PRN PRN Reason: MAG LEVEL 1.4 - 2.0 Magnesium Sulfate 2 gm/ Device 100 mls @ 100 mls/hr IVPB ASDIR PRN PRN Reason: MAGNESIUM < 1.4 Potassium Phosphate 9 mmol/ (Sodium Chloride) 103 mls @ 25.75 mls/hr IVPB ASDIR PRN PRN Reason: Phosphate 1.0-1.8 Potassium Phosphate 12 mmol/ (Sodium Chloride) 254 mls @ 63.5 mls/hr IV ASDIR PRN PRN Reason: Serum phosphate 0.5-0.9 Potassium Phosphate 15 mmol/ (Sodium Chloride) 255 mls @ 63.75 mls/hr IV ASDIR PRN PRN Reason: Serum Phos < 0.5 Dextrose/Water (D5w) 1,000 mls @ 0 mls/hr IV .Q0M PRN PRN Reason: Hypoglycemia Dextrose/Water (D5w) 1,000 mls @ 50 mls/hr IV .Q20H [facility] Last Admin: 03/03/18 05:13 Dose: 1,000 mls Insulin Human Lispro (Humalog) 0 units SC .MILD SLIDING SCALE PRN PRN Reason: Mild Correctional Scale Last Admin: 03/02/18 12:53 Dose: 2 unit Magnesium Oxide (Magnesium Oxide) 400 mg PO BIDPRN PRN PRN Reason: FOR SERUM MAG 1.4 - 2.0 Magnesium Oxide (Magnesium Oxide) 800 mg PO PRN PRN PRN Reason: FOR SERUM MAG < 1.4 Mineral Oil/White Petrolatum (Lacri-Lube Ointment) 0 gm EA EYE PRN PRN PRN Reason: Dry Eyes Miscellaneous Medication (Ccu Electrolyte Replacement) 1 each IVPB ONE [facility] Stop: 03/18/18 21:42 Miscellaneous Medication (Pharmacy To Dose) 1 each IVPB PRN PRN PRN Reason: Pharmacy to dose Miscellaneous Medication (Phos-Nak) 1 pkt PO TIDPRN PRN PRN Reason: FOR PHOS LEVEL 1.0 - 1.8 Miscellaneous Medication (Phos-Nak) 2 pkt PO TIDPRN PRN PRN Reason: FOR PHOS LEVEL 0.5 - 1.0 Nicotine (Nicoderm Patch) 21 mg TOP DAILY [facility] Last Admin: 03/03/18 09:30 Dose: 21 mg Discontinue Previous Narcotic Pain Medications And Benzodiazepines 1 each FS .ONE [facility] Stop: 03/18/18 21:43 Ccu Electrolyte (Replacement Protocol) 0 each FS PRN PRN PRN Reason: FOR ELECTROLYTE REPLACEMENT Potassium Chloride (K-Dur) 40 meq PO ASDIR PRN PRN Reason: FOR SERUM K+ 2.5 - 3.5 Potassium Chloride (Klor-Con) 40 meq PER TUBE ASDIR PRN PRN Reason: FOR SERUM K+ 2.5-3.5 Prednisone (Prednisone) 20 mg PO QAM-[facility] Last Admin: 03/03/18 09:29 Dose: 20 mg Senna/Docusate Sodium (Senokot S) 2 tab PO BIDPRN PRN PRN Reason: Constipation Sodium Chloride (Flush - Normal Saline) 10 ml IVF Q12HR [facility] Last Admin: 03/03/18 09:29 Dose: 10 ml Sodium Chloride (Flush - Normal Saline) 10 ml IVF PRN PRN PRN Reason: Saline Flush Last Admin: 02/26/18 06:34 Dose: 10 ml
[2018-03-03] MEDS: HumaLOG 300 UNITS/3 ML VIAL SC PRN (17:01)
[2018-03-04] MEDS: predniSONE 20 MG TAB PO SCH (08:15)
--- NOTE | 2018-03-04 09:02 | PDOC.CTH ---
Cardiology Progress Note - Subjective The pt seen and examined. No overnight events. No cardiac complaints. He can follow commands; however, he is very lethargic. Exercising with PTs at this moment. - Objective Vital Signs Temp Pulse Resp BP Pulse Ox 03/04/18 08:04 85 18 92 L 03/04/18 07:40 98.5 F 90 20 127/77 91 L 03/04/18 04:00 98.3 F 81 18 120/78 96 03/04/18 00:23 78 16 95 03/03/18 23:56 98.7 F 78 20 152/82 H 95 Admit Weight 260 lb 2.327 oz Weight 247 lb 03/03/18 03/04/18 03/05/18 06:59 06:59 06:59 Intake Total 2440 3351 Output Total 1650 3650 Balance 790 -299 - Physical Examination General/Neuro: alert & oriented x3 Neck: no JVD present Lungs: other: (coarses an ddiminished at bases ) Heart: RRR Abdomen: soft Extremities: other: (No edema) - Telemetry Telemetry Rhythm: SR - Labs Result Diagrams: 03/03/18 04:13 03/03/18 04:13 Troponin/CKMB CK-MB (CK-2) 2.3 ng/mL (0-6.6) 02/16/18 18:29 Troponin I 0.157 ng/mL (< 0.028) H 02/17/18 00:32 - Assessment/Plan 1. Hx of SVT/NSVT - No SVT event overnight. Start Metoprolol 12.5mg BID from this AM for SVT prevention. Cont. to monitor on tele. 2. Aucte Resp. failure 2/2 COPD and Community acquired PNA - stable with 2LNC; on IV abx; managed PCP/teletypesetter 3. Dysphagia 2/2 oropharyngeal transfer dysfunction and s/p PEG tube placement 4. DM type 2 - 5. Metabolic encephalopathy - improving 6. Hypernatoremia - improving with D5W 50ml/h; managed by PCP 7. Tobacco abuse - smoking cessation education will be given to the pt when he is more stable. MAR reviewed * Echo on 02/17/18 showed EF 40-45%, akinetic posterior wall, dilated LV, mod dilated LA, mild ERA, trace MR, mild MAC, mild TR. * No further cardiac workup due to his medical condition. Review of Systems - Review of Systems Constitutional: reports: weakness EENTM: reports: no symptoms reported Respiratory: reports: no symptoms reported Cardiac (ROS): reports: no symptoms reported ABD/GI: reports: no symptoms reported : reports: no symptoms reported
[2018-03-04 09:05] VITALS: BMI 35.4
[2018-03-04] MEDS ORDERED: Metoprolol Tartrate 25 MG TAB PO SCH ×3 (09:30→21:00)
[2018-03-04 09:33] LABS: Hemoglobin 13.4 g/dL (14.0-18.0); Mean Corpuscular HGB CONC 31.2 g/dL (32.0-36.0); Mean Corpuscular Hemoglobin 31.4 pg (27.0-31.0); Mean Platelet Volume 7.1 fL (7.4-10.4); Platelet Count 232 thou/uL (130-400); RBC Distribution Width 12.3 % (11.5-14.5); Red Blood Cell (RBC) Count 4.28 mill/uL (4.70-6.10); White Blood Cell (WBC) Count 11.6 thou/uL (4.8-10.8)
[2018-03-04 09:48] LABS: Anion Gap 13 mmol/L (10-20); BUN (Urea Nitrogen) 20 mg/dL (8.4-25.7); Calc. Creatinine Clearance 151 mL/min (70-130); Calcium 9.7 mg/dL (7.8-10.44); Carbon Dioxide 35 mmol/L (23-31); Chloride 99 mmol/L (98-107); Estimated GFR-MDRD Greater than 90; Glucose 148 mg/dL (80-115); Magnesium 2.4 mg/dL (1.6-2.6); Potassium 4.6 mmol/L (3.5-5.1); Sodium 142 mmol/L (136-145)
[2018-03-04] MEDS: Famotidine/PF 20 mg/2ml Vial SLOW IVP SCH (10:03)
[2018-03-04] MEDS: Cefdinir 300 MG CAP PO SCH (10:03)
[2018-03-04] MEDS: Enoxaparin Sodium 40 MG/0.4 ML SYRINGE SC SCH (10:03)
[2018-03-04] MEDS: Nicotine 21 MG PATCH TOP SCH (10:04)
[2018-03-04 11:02] LABS: Band 6 % (5-11); Eosinophils 2 % (0-10); Lymphocytes 16 % (21-51); MDiff Complete? YES; Macrocytosis SLIGHT = 6-15 cells (100X) (0-5/hpf); Monocytes 3 % (0-10); Neutrophil 73 % (42-75); PLT Morphology Comment Appears Adequate
--- NOTE | 2018-03-04 11:34 | DIS ---
PRIMARY CARE PHYSICIAN: Dr. Raymond Penaloza DATE OF ADMISSION: 02/16/2018 DATE OF DISCHARGE: 03/04/2018 DISCHARGE DIAGNOSES: 1. Hypercapnic respiratory failure. 2. Bilateral lower lobe pneumonia. 3. Aspiration. 4. Acute kidney injury. 5. Hyperkalemia. 6. Hyponatremia. 7. Demand ischemia. 8. Supraventricular tachycardia. 9. Oropharyngeal dysphagia. 10. Deconditioning. CONSULTATIONS DURING THIS HOSPITALIZATION: 1. Pulmonology, Dr. Estes 2. Cardiology, Dr. Abreu 3. Gastroenterology, Dr. Ramirez CONDITION OF PATIENT ON THE DAY OF DISCHARGE: Stable. I assessed Mr. Johnson on the day of discharge . He denies any chest pain or shortness of breath. Vital signs are stable. S1 and S2 are heard, re gular. Lungs are clear to auscultation bilaterally. HOSPITAL COURSE: Mr. Johnson is a pleasant 68-year-old gentleman who was admitted to [facility] on 02/16/2018 for hypercapnic respiratory failure. Please refer to Dr. Victoria's hi story and physical note dated 02/17/2018 for further details. Lower extremity Dopplers on 02/17/2018 did not show any DVT. He also had a 2D echocardiogram on 02/17/2018, which showed left ventricular ejection fraction of 40-45%. He had elevated troponins, likely from demand ischemia. I should menti on that he was intubated and admitted to the Critical Care Unit at the time of admission. He also re ceived intravenous antibiotics for a bilateral pneumonia. He required quite a bit of sedation while he was on the ventilator. On 02/22/2018 he was extubated. On 02/23/2018 he was transferred to [facility]. He failed swallow studies. He was seen by Gastroenterology Service for oropharyngeal dysphagia. Ji subramanian had PEG tube placed on 02/27/2018. He has been started on tube feeds. He had a significant amount of physical deconditioning. He is being transferred to [facility] further management. DISCHARGE MEDICATIONS: Vitamin C 1000 mg daily, atorvastatin 10 mg daily, Pulmicort 2 puffs 2 times a day, Proscar 5 mg daily, Flomax 0.4 mg daily, cefdinir 300 mg 2 times a day for 5 more days, furose mide 20 mg daily, Medrol Dosepak, Lopressor 12.5 mg 2 times a day, nicotine 21 mg patch daily, Spiriv a 18 mcg inhalation daily and DuoNeb 3 mL every 6 hours as needed. Many thanks for allowing me to participate in your patient's care. Please feel free to contact me wi th any questions or concerns. DISCHARGE DESTINATION: Luiza Bustamante. TOTAL AMOUNT OF TIME SPENT COORDINATING THIS DISCHARGE: 32 minutes.
[2018-03-04 12:04] VITALS: BP 145/72; TEMP 98.6
== END 2018-03-04 13:20 | disposition home or self-care (01) | DRG 207 ==
LOC: ERS 18:19 → EDBD 18:19 → CCU 21:35 → IMCU/EMU 02-24 12:29
PROVIDERS: ADMIT Internal Medicine; ATTEND Internal Medicine
PROC: 5A1955Z Respiratory Ventilation, Greater than 96 Consecutive Hours (ICD-10-PCS; principal; 2018-02-16)
PROC: 0BH17EZ Insertion of Endotracheal Airway into Trachea, Via Natural or Artificial Opening (ICD-10-PCS; 2018-02-16)
PROC: 0DH63UZ Insertion of Feeding Device into Stomach, Percutaneous Approach (ICD-10-PCS; 2018-02-27)
DX: J96.22 Acute and chronic respiratory failure with hypercapnia (principal); G93.41 Metabolic encephalopathy; J69.0 Pneumonitis due to inhalation of food and vomit; J15.9 Unspecified bacterial pneumonia; I24.8 Other forms of acute ischemic heart disease; N17.9 Acute kidney failure, unspecified; E87.0 Hyperosmolality and hypernatremia; I47.1 Supraventricular tachycardia; J96.21 Acute and chronic respiratory failure with hypoxia; J44.9 Chronic obstructive pulmonary disease, unspecified; D64.9 Anemia, unspecified; Z85.038 Personal history of other malignant neoplasm of large intestine; F43.10 Post-traumatic stress disorder, unspecified; F17.210 Nicotine dependence, cigarettes, uncomplicated; Z79.899 Other long term (current) drug therapy; Z79.891 Long term (current) use of opiate analgesic; E86.0 Dehydration; E87.5 Hyperkalemia; R13.12 Dysphagia, oropharyngeal phase; Z99.81 Dependence on supplemental oxygen; N18.2 Chronic kidney disease, stage 2 (mild); I12.9 Hypertensive chronic kidney disease with stage 1 through stage 4 chronic kidney disease, or unspecified chronic kidney disease; E66.9 Obesity, unspecified; Z68.36 Body mass index [BMI] 36.0-36.9, adult
CPT/HCPCS: 36415; 36416; 51702; 70450; 71045; 71260; 72125; 74018; 74177; 80048; 80053; 80307; 81003; 81015; 82553; 82805; 83605; 83690; 83735; 84100; 84439; 84443; 84484; 85007; 85025; 85027; 85610; 85730; 87040; 87070; 87077; 87205; 93005; 93306; 94002; 94003; 94640; 96365; 96366; 96367; 96368; 96375; G8978-GP-CM; G8979-GP-CL; G8996-GN-CM; G8997-GN-CI; J0295; J0456; J0696; J1630; J1650; J1815; J1940; J2060; J2704; J2920; J3010; J7050; J7506; J7620; S0028

== ENCOUNTER 2018-07-02 11:11 | Inpatient (IN) | payer MEDICARE, OTHER ==
[2018-07-02 12:18] LABS: Hemoglobin 12.1 g/dL (14.0-18.0); Mean Corpuscular HGB CONC 32.7 g/dL (32.0-36.0); Mean Corpuscular Hemoglobin 31.6 pg (27.0-31.0); Mean Corpuscular Volume 96.6 fL (78.0-98.0); Mean Platelet Volume 7.1 fL (7.4-10.4); Platelet Count 221 thou/uL (130-400); RBC Distribution Width 13.6 % (11.5-14.5); Red Blood Cell (RBC) Count 3.84 mill/uL (4.70-6.10)
[2018-07-02 12:32] LABS: Band 29 % (5-11); Dohle Bodies SLIGHT; Lymphocytes 5 % (21-51); MDiff Complete? YES; Metamyelocyte 3 % (0-0); Monocytes 11 % (0-10); Neutrophil 50 % (42-75); Ovalocytes SLIGHT = 2-5 cells (100X) (0-1/hpf); Platelet Morphology Comment Appears Adequate; Polychromasia SLIGHT = 2-3 cells (100X) (0-2/hpf); Reactive Lymphocytes 2 % (0-10); Toxic Granulation SLIGHT
[2018-07-02 12:45] LABS: ALT (SGPT) 13 U/L (8-55); AST (SGOT) 16 U/L (5-34); Albumin 2.9 g/dL (3.4-4.8); Alkaline Phosphatase 137 U/L (40-150); Anion Gap 22 mmol/L (10-20); BUN (Urea Nitrogen) 91 mg/dL (8.4-25.7); Bilirubin, Total 1.7 mg/dL (0.2-1.2); Calc. Creatinine Clearance 0 mL/min (70-130); Carbon Dioxide 24 mmol/L (23-31); Chloride 98 mmol/L (98-107); Estimated GFR-MDRD 18; Globulin 3.1 g/dL (2.4-3.5); Glucose 100 mg/dL (80-115); Potassium 4.6 mmol/L (3.5-5.1); Sodium 139 mmol/L (136-145)
[2018-07-02] MEDS ORDERED: Nicotine 14 MG PATCH TD SCH (15:00)
[2018-07-02] MEDS ORDERED: Acetaminophen 500 MG TAB PO PRN (15:09)
[2018-07-02] MEDS ORDERED: Ondansetron PF 4 MG/2 ML Vial IVP PRN (15:09)
[2018-07-02] MEDS ORDERED: hydrALAZINE 20 MG/ML VIAL SLOW IVP PRN (15:09)
[2018-07-02] MEDS ORDERED: Ondansetron ODT 4 MG TAB PO PRN (15:09)
[2018-07-02 15:49] LABS: Bilirubin Large (Negative); Blood, Urine Negative (Negative); Clarity CLEAR (Clear); Glucose, Urine (Dipstick) Negative (Negative); Leukocyte Trace (Negative); Nitrite Negative (Negative); Protein, Urine (Dipstick) Trace mg/dL (Neg-Trace); Specific Gravity, Urine 1.014 (1.002-1.036)
[2018-07-02 15:51] LABS: Bacteria/HPF None Seen HPF (None Seen); Hyaline Casts/LPF 7-10 HYALINE CAST LPF (0-3 Hyaline); Pathc Cast-AUWi Flag 1.63 (0-2.49); RBC/HPF 0-3 HPF (0-3); Squamous Epithelial 0-3 HPF (0-3); WBC/HPF 0-3 HPF (0-3)
[2018-07-02 16:07] LABS: Troponin I Less than 0.010 ng/mL (< 0.028)
--- NOTE | 2018-07-02 16:35 | HP ---
PRIMARY CARE PROVIDER: Dr. Davis at the [facility] in [place], [place]. CHIEF COMPLAINT: General weakness. HISTORY OF PRESENT ILLNESS: This is a 68-year-old male, who initially presented to [facility] Emergency Department after sustaining 2-3 falls over the last 2 to 3 days at home. The patient states he noticed progressive weakness and unsteady gait and became tangled in his oxygen tubing at home. The patient states he fell and was unable to get up, calling his neighbor who was apparently in the healthcare field and a nurse who assisted him. The patient states this happened on 2 separate occasions, at which point his suggested he seek medical attention. The patient admits to approximately a week-long history of diarrhea, loose stools, and decreased appetite. The patient also admits to decreased oral intake, but has been able to drink water and Gatorade. The patient denies any associated nausea, vomiting, or documented fever. The patient denies any travel history or family members with similar symptoms, but does state he was recently at [facility] in late 2017 for prolonged hospital stay due to respiratory failure requiring mechanical ventilation and receiving antibiotics for bilateral pneumonia. The patient states he was discharged to [facility] where he convalesced, eventually returning back to his home. The patient denies using any home health services, receiving physical therapy and states his overall activity level is limited from a recliner to the kitchen and bathroom. The patient denies any recent antibiotic exposure or change to his medication regimen. The patient took Gas-X for relief of his symptoms with mild improvement. In the emergency room, the patient underwent general evaluation including metabolic screening showing evidence of acute kidney injury with a creatinine of 3.4, above baseline levels of normal renal function as recently as March of 2018. The patient also was noted with a leukocytosis and initiated on IV fluids. PAST MEDICAL HISTORY: 1. Acute hypercapnic respiratory failure requiring mechanical ventilation in February 2018. 2. Tobacco abuse ongoing. 3. Chronic hypoxic hypercapnic respiratory failure with intermittent oxygen use at home. 4. Chronic obstructive pulmonary disease. 5. Hypertension. 6. History of colon cancer. 7. Chronic normocytic anemia. PAST SURGICAL HISTORY: 1. Status post colon resection due to colon carcinoma. 2. Status post appendectomy. 3. Status post laparotomy. CURRENT MEDICATIONS: Based on admission in February 2018: 1. Lipitor 10 mg p.o. daily. 2. Budesonide two puffs inhaled b.i.d. 3. Proscar 5 mg p.o. daily. 4. Flomax 0.4 mg p.o. daily. 5. Lasix 20 mg daily. 6. DuoNeb 3 mL nebulized q.4 to 6 hours p.r.n. 7. Metoprolol tartrate 12.5 mg p.o. b.i.d. 8. Spiriva HandiHaler 18 mcg inhaled daily. Accurate home medication list will need to be obtained from family members. ALLERGIES: NO KNOWN DRUG ALLERGIES. FAMILY HISTORY: Positive for hypertension. SOCIAL HISTORY: The patient resides in [place], [place] with his . Ambulates with a walker or cane intermittently. Also, he uses a scooter. Positive falls times 2-3 in the last 3 to 4 days prior to this evaluation. Smokes cigars daily. No alcohol or illicit drug use. Uses home oxygen intermittently by nasal cannula. REVIEW OF SYSTEMS: CONSTITUTIONAL: Negative for weight loss or gain, ability to conduct usual activities. SKIN: Negative for rash, itching. EYES: Negative for double vision, pain. ENT/MOUTH: Negative for nose bleeding, neck stiffness, pain, tenderness. CARDIOVASCULAR: Negative for palpitations, dyspnea on exertion, orthopnea. RESPIRATORY: Negative for shortness of breath, wheezing, cough, hemoptysis, fever or night sweats. GASTROINTESTINAL: Negative for poor appetite, abdominal pain, heartburn, nausea, vomiting, constipation, or diarrhea. GENITOURINARY: Negative for urgency, frequency, dysuria, nocturia. MUSCULOSKELETAL: Negative for pain, swelling. NEUROLOGIC/PSYCHIATRIC: Negative for anxiety, depression. ALLERGY/IMMUNOLOGIC: Negative for skin rash, bleeding tendency. Otherwise, negative except as stated per HPI. PHYSICAL EXAMINATION: VITAL SIGNS: On admission, blood pressure 106/64, pulse 100, respiratory rate 16, temperature 97.6 degrees Fahrenheit, O2 saturation 95% on 4 L/minutes by nasal cannula. GENERAL APPEARANCE: This is a 68-year-old male, alert and oriented x3, pleasant, responsive, in no acute distress. HEENT: Pupils are equal, round, reactive to light and accommodation. Extraocular muscles are intact. No scleral icterus. No conjunctival injection. Nares patent. OP is clear. Teeth with nicotine stains and in fair repair. NECK: Supple. No cervical adenopathy. No thyromegaly. No carotid bruits. No JVD noted. Cervical spine with full active and passive range of motion. No meningeal signs noted. CHEST: Diminished breath sounds bilaterally with occasional expiratory wheeze. CARDIOVASCULAR: S1 and S2 with distant heart sounds. No murmur, rub, or gallop appreciated. ABDOMEN: Obese, soft, nontender. No rebound or guarding appreciated. No palpable mass, however landmarks are difficult to palpate due to the patient's body habitus. EXTREMITIES: Warm and dry with fair turgor. No clubbing, cyanosis, or asymmetric edema appreciated. Pulses palpable distally at the dorsalis pedis, posterior tibial, and popliteal arteries bilaterally. Capillary refill less than 2 seconds. NEUROLOGIC: Cranial nerves 2 through 12 are grossly intact. No focal or lateralizing signs appreciated. PERTINENT LABORATORY AND X-RAY FINDINGS: Sodium 139, potassium 4.6, chloride 98, CO2 of 24, BUN 91, creatinine 3.40, estimated GFR of 18, previously noted greater than 90 on 03/24/2018, glucose 100, calcium 9.0, total bilirubin 1.7. Rest of LFTs within normal limits. CBC showed a white blood cell count 21, hemoglobin 12, hematocrit 37, platelet count 221 with 50% neutrophils, 29% bandemia. ASSESSMENT AND PLAN: 1. Acute kidney injury. Suspect volume mediated due to persistent diarrhea. We will continue IV fluids with normal saline at 125 mL/hr. Avoid nephrotoxic agents. Limit contrast exposure. Hold Lasix. Serial creatinine monitoring. 2. Gastroenteritis. Questionable infectious process. We will check stool studies to include Clostridium difficile antigen, toxin as well as Campylobacter and Shigella toxin. Check stool guaiac. Continue IV fluids as noted in #1. 3. Chronic hypoxic respiratory failure. We will continue oxygen supplementation to maintain O2 saturations greater than or equal to 90%. Resume home pulmonary supportive measures to include Pulmicort 2 puffs inhaled b.i.d. and Spiriva HandiHaler 18 mcg inhaled daily. 4. Leukocytosis with bandemia. Suspect secondary to gastroenteritis. Stool studies pending. No other evidence of focal infectious process. We will hold antibiotics pending stool studies. Repeat CBC in the a.m. 5. Prophylaxis. SCDs while in bed. Pepcid 20 mg p.o. b.i.d. 6. Code status is full. Surrogate medical decision maker is the patient's . Job ID: [id number]
[2018-07-02 18:53] LABS: Troponin I Less than 0.010 ng/mL (< 0.028)
[2018-07-02] MEDS: Ipratropium Bromide 2.5 ml Neb NEB SCH (18:55)
[2018-07-02] MEDS: Mometasone Furoate 120 PUFF 220 MCG INH SCH (18:58)
[2018-07-02] MEDS: Sodium Chloride 0.9% 1,000 ML IV SCH (19:38)
[2018-07-02] MEDS: Metoprolol Tartrate 25 MG TAB PO SCH (19:39)
[2018-07-02 19:45] VITALS: BMI 36.9
[2018-07-03] MEDS: Ipratropium Bromide 2.5 ml Neb NEB SCH ×4 (00:04→19:52)
[2018-07-03] MEDS: Sodium Chloride 0.9% 1,000 ML IV SCH ×4 (05:45→19:38)
[2018-07-03 06:42] LABS: Anion Gap 14 mmol/L (10-20); BUN (Urea Nitrogen) 83 mg/dL (8.4-25.7); Calc. Creatinine Clearance 45 mL/min (70-130); Calcium 8.4 mg/dL (7.8-10.44); Carbon Dioxide 24 mmol/L (23-31); Chloride 104 mmol/L (98-107); Estimated GFR-MDRD 23; Glucose 102 mg/dL (80-115); Potassium 3.9 mmol/L (3.5-5.1); Sodium 138 mmol/L (136-145)
[2018-07-03 06:46] LABS: Hemoglobin 10.7 g/dL (14.0-18.0); Mean Corpuscular HGB CONC 32.5 g/dL (32.0-36.0); Mean Corpuscular Hemoglobin 31.1 pg (27.0-31.0); Mean Corpuscular Volume 95.4 fL (78.0-98.0); Platelet Count 205 thou/uL (130-400); RBC Distribution Width 13.5 % (11.5-14.5); Red Blood Cell (RBC) Count 3.45 mill/uL (4.70-6.10); White Blood Cell (WBC) Count 17.5 thou/uL (4.8-10.8)
[2018-07-03 06:53] LABS: Band 9 % (5-11); Eosinophils 1 % (0-10); Hypochromia SLIGHT = 6-15 cells (100X) (0-5/hpf); Lymphocytes 9 % (21-51); MDiff Complete? YES; Monocytes 1 % (0-10); Neutrophil 80 % (42-75); Platelet Morphology Comment Appears Adequate
[2018-07-03] MEDS ORDERED: Loratadine 10 MG TAB PO PRN (07:16)
[2018-07-03] MEDS ORDERED: Diabetic Tussin 200 MG/10 ML UDCUP PO PRN (07:16)
[2018-07-03] MEDS ORDERED: Cepastat Lozenges 1 LOZ PO PRN (07:16)
[2018-07-03] MEDS ORDERED: Artificial Tears 18 DROP/0.9 ML EA EYE PRN (07:16)
[2018-07-03] MEDS ORDERED: Calcium Carbonate 500 MG ChewTAB PO PRN (07:16)
[2018-07-03] MEDS ORDERED: Sodium Chloride 0.65% Nasal 44 ML BOT EA NARE PRN (07:16)
[2018-07-03] MEDS ORDERED: Eucerin (Mineral Oil/Petrolatum,White) 30 gm Jar TOP PRN (07:16)
[2018-07-03] MEDS: Ascorbic Acid 500 mg Chewable Tablet PO SCH (08:23)
[2018-07-03] MEDS: Famotidine 20 MG TAB PO SCH (08:24)
[2018-07-03] MEDS: Tamsulosin HCl 0.4 MG CAP PO SCH (08:24)
[2018-07-03] MEDS: Finasteride 5 MG TAB PO SCH (08:25)
[2018-07-03] MEDS: Atorvastatin Calcium 10 MG TAB PO SCH (08:25)
[2018-07-03] MEDS: Metoprolol Tartrate 25 MG TAB PO SCH ×3 (08:31→21:19)
[2018-07-03] MEDS ORDERED: Non-Formulary Item 1 EACH (Ascorbic Acid [C-1000] 1,000 MG) PO SCH (09:00)
--- NOTE | 2018-07-03 10:12 | PDOC.PN ---
- Subjective Encounter Start Date: 07/03/18 Encounter Start Time: 08:55 -: old records requested/rev pt has diarrhoea, he is weak, no dyspnea, but feels improving Patient seen and examined. No overnight events - Objective Resuscitation Status - Order Detail: 07/02/18 15:01 Resuscitation Status Routine Resuscitation Status: FULL: Full Resuscitation MAR Reviewed: Yes Vital Signs & Weight: Vital Signs (12 hours) Temp Pulse Resp BP Pulse Ox 07/03/18 09:19 97 07/03/18 09:16 88 20 97 07/03/18 08:00 97 07/03/18 07:24 98.5 F 86 16 99/62 92 L 07/03/18 04:00 98.7 F 98 20 101/58 L 92 L 07/03/18 00:04 93 18 92 L 07/03/18 00:00 98.6 F 93 20 94/53 L 92 L Weight Weight 279 lb 15.793 oz I&O: 07/02/18 07/03/18 07/04/18 06:59 06:59 06:59 Intake Total 3250 Balance 3250 Result Diagrams: 07/03/18 06:09 07/03/18 06:09 Phys Exam - Physical Examination Constitutional: NAD HEENT: PERRLA, moist MMs, sclera anicteric Neck: no JVD, supple Respiratory: no wheezing, no rales, no rhonchi Cardiovascular: RRR, no significant murmur, no rub Gastrointestinal: soft, non-tender, no distention, positive bowel sounds Musculoskeletal: no edema, pulses present Neurological: non-focal, normal sensation Lymphatic: no nodes Psychiatric: normal affect, A&O x 3 Skin: no rash, normal turgor Dx/Plan (1) Acute kidney failure Status: Acute (2) Gastroenteritis Code(s): K52.9 - NONINFECTIVE GASTROENTERITIS AND COLITIS, UNSPECIFIED Status : Acute (3) Sepsis with acute organ dysfunction Code(s): A41.9 - SEPSIS, UNSPECIFIED ORGANISM; R65.20 - SEVERE SEPSIS WITHOUT SEPTIC SHOCK Status: Acute (4) BPH (benign prostatic hyperplasia) Code(s): N40.0 - BENIGN PROSTATIC HYPERPLASIA WITHOUT LOWER URINRY TRACT SYMP Status: Chronic (5) COPD (chronic obstructive pulmonary disease) Status: Chronic (6) Chronic respiratory failure with hypoxia, on home O2 therapy Code(s): J96.11 - CHRONIC RESPIRATORY FAILURE WITH HYPOXIA; Z99.81 - DEPENDENCE ON SUPPLEMENTAL OXYGEN Status: Chronic (7) Dyslipidemia Code(s): E78.5 - HYPERLIPIDEMIA, UNSPECIFIED Status: Chronic (8) Hypertension Code(s): I10 - ESSENTIAL (PRIMARY) HYPERTENSION Status: Chronic (9) Obesity (BMI 30-39.9) Code(s): E66.9 - OBESITY, UNSPECIFIED Status: Chronic (10) Tobacco abuse Code(s): Z72.0 - TOBACCO USE Status: Chronic - Plan cont current plan of care, continue antibiotics * medication reviewed as below * symptomatic treatment * stool for infection work up negative * add imodium * continue IVF * monitor labs. Review of Systems - Review of Systems ENT: negative: Ear Pain, Ear Discharge, Nose Pain, Nose Discharge, Nose Congestion, Mouth Pain, Mouth Swelling, Throat Pain, Throat Swelling, Other Respiratory: negative: Cough, Dry, Shortness of Breath, Hemoptysis, SOB with Excertion, Pleuritic Pain, Sputum, Wheezing Cardiovascular: negative: chest pain, palpitations, orthopnea, paroxysmal nocturnal dyspnea, edema, light headedness, other Gastrointestinal: negative: Nausea, Vomiting, Abdominal Pain, Diarrhea, Constipation, Melena, Hematochezia, Other Genitourinary: negative: Dysuria, Frequency, Incontinence, Hematuria, Retention , Other Musculoskeletal: negative: Neck Pain, Shoulder Pain, Arm Pain, Back Pain, Hand Pain, Leg Pain, Foot Pain, Other - Medications/Allergies Allergies/Adverse Reactions: Allergies Allergy/AdvReac Type Severity Reaction Status Date / Time iodine Allergy Verified 07/02/18 19:43 Medications: Current Medications Acetaminophen (Tylenol) 1,000 mg PO Q6H PRN PRN Reason: Mild Pain (1-3) Artificial Tears (Tears Naturale) 2 drop EA EYE PRN PRN PRN Reason: Dry Eyes Ascorbic Acid (Vitamin C) 1,000 mg PO DAILY [facility] Last Admin: 07/03/18 08:23 Dose: 1,000 mg Atorvastatin Calcium (Lipitor) 10 mg PO DAILY [facility] Last Admin: 07/03/18 08:25 Dose: 10 mg Calcium Carbonate (Tums) 1,000 mg PO Q4H PRN PRN Reason: Heartburn or Indigestion Famotidine (Pepcid) 20 mg PO DAILY [facility] Last Admin: 07/03/18 08:24 Dose: 20 mg Finasteride (Proscar) 5 mg PO DAILY [facility] Last Admin: 07/03/18 08:25 Dose: 5 mg Guaifenesin (Robitussin Sf) 200 mg PO Q4H PRN PRN Reason: Cough Hydralazine HCl (Apresoline) 10 mg SLOW IVP Q4H PRN PRN Reason: SBP > 180 and HR < 70 Sodium Chloride (Normal Saline 0.9%) 1,000 mls @ 125 mls/hr IV .Q8H [facility] Last Admin: 07/03/18 08:30 Dose: Not Given Ipratropium [place] (Atrovent) 2.5 ml NEB [id number] [facility] Last Admin: 07/03/18 09:16 Dose: 2.5 ml Loperamide HCl (Imodium) 2 mg PO PRN PRN PRN Reason: Diarrhea/Loose Stools Loratadine (Claritin) 10 mg PO DAILYPRN PRN PRN Reason: Sinus Symptoms Metoprolol Tartrate (Lopressor) 12.5 mg PO BID [facility] Last Admin: 07/03/18 08:31 Dose: Not Given Mineral Oil/White Petrolatum (Eucerin Cream) 0 gm TOP BIDPRN PRN PRN Reason: Dry Skin Mometasone Furoate (Asmanex Twisthaler) 1 puff INH 1830 [facility] Last Admin: 07/02/18 18:58 Dose: Not Given Ondansetron HCl (Zofran Odt) 4 mg PO Q6H PRN PRN Reason: Nausea/Vomiting Ondansetron HCl (Zofran) 4 mg IVP Q6H PRN PRN Reason: Nausea/Vomiting Sodium Chloride ([place] Nasal [place] 0.65%) 0 ml EA NARE QIDPRN PRN PRN Reason: Nasal Congestion Sodium Chloride (Flush - Normal Saline) 10 ml IVF Q12HR [facility] Last Admin: 07/03/18 08:31 Dose: Not Given Sodium Chloride (Flush - Normal Saline) 10 ml IVF PRN PRN PRN Reason: Saline Flush Tamsulosin HCl (Flomax) 0.4 mg PO DAILY [facility] Last Admin: 07/03/18 08:24 Dose: 0.4 mg Throat Lozenges (Cepastat Lozenges) 1 margot PO Q2H PRN PRN Reason: Sore Throat
[2018-07-03] MEDS: Loperamide HCl 2 MG CAP PO PRN ×3 (10:30→19:36)
[2018-07-03] MEDS: Mometasone Furoate 120 PUFF 220 MCG INH SCH (19:49)
[2018-07-03] MEDS: Diphenoxylate HCl/Atropine Tablet PO PRN (23:06)
[2018-07-04] MEDS: Ipratropium Bromide 2.5 ml Neb NEB SCH ×5 (00:53→23:50)
[2018-07-04 07:42] LABS: Hemoglobin 11.8 g/dL (14.0-18.0); Mean Corpuscular HGB CONC 33.5 g/dL (32.0-36.0); Mean Corpuscular Hemoglobin 30.8 pg (27.0-31.0); Mean Platelet Volume 7.8 fL (7.4-10.4); Platelet Count 182 thou/uL (130-400); RBC Distribution Width 13.7 % (11.5-14.5); Red Blood Cell (RBC) Count 3.84 mill/uL (4.70-6.10); White Blood Cell (WBC) Count 13.9 thou/uL (4.8-10.8)
[2018-07-04] MEDS: Metoprolol Tartrate 25 MG TAB PO SCH ×2 (07:54→19:43)
[2018-07-04] MEDS: Tamsulosin HCl 0.4 MG CAP PO SCH (07:54)
[2018-07-04] MEDS: Famotidine 20 MG TAB PO SCH (07:56)
[2018-07-04] MEDS: Finasteride 5 MG TAB PO SCH (07:56)
[2018-07-04] MEDS: Atorvastatin Calcium 10 MG TAB PO SCH (07:56)
[2018-07-04] MEDS: Sodium Chloride 0.9% 1,000 ML IV SCH ×3 (07:57→17:35)
[2018-07-04] MEDS: Ascorbic Acid 500 mg Chewable Tablet PO SCH (07:57)
[2018-07-04] MEDS: Diphenoxylate HCl/Atropine Tablet PO PRN (07:58)
[2018-07-04 08:02] LABS: ALT (SGPT) 13 U/L (8-55); AST (SGOT) 17 U/L (5-34); Albumin 2.4 g/dL (3.4-4.8); Alkaline Phosphatase 143 U/L (40-150); Anion Gap 22 mmol/L (10-20); BUN (Urea Nitrogen) 72 mg/dL (8.4-25.7); Bilirubin, Total 1.5 mg/dL (0.2-1.2); Calc. Creatinine Clearance 60 mL/min (70-130); Calcium 8.4 mg/dL (7.8-10.44); Carbon Dioxide 13 mmol/L (23-31); Chloride 109 mmol/L (98-107); Estimated GFR-MDRD 32; Globulin 2.9 g/dL (2.4-3.5); Glucose 85 mg/dL (80-115); Potassium 4.1 mmol/L (3.5-5.1); Protein, Total 5.3 g/dL (5.8-8.1); Sodium 140 mmol/L (136-145)
--- NOTE | 2018-07-04 08:48 | PDOC.PN ---
- Subjective Encounter Start Date: 07/04/18 Encounter Start Time: 07:40 Patient seen and examined. No new complaints. No overnight events - Objective Resuscitation Status - Order Detail: 07/02/18 15:01 Resuscitation Status Routine Resuscitation Status: FULL: Full Resuscitation MAR Reviewed: Yes Vital Signs & Weight: Vital Signs (12 hours) Temp Pulse Resp BP BP Pulse Ox 07/04/18 08:01 119 H 18 93 L 07/04/18 07:50 98.6 F 119 H 20 118/66 93 L 07/04/18 00:53 120 H 16 94 L 07/03/18 23:30 98.3 F 116 H 22 H 115/68 92 L Weight Admit Weight 279 lb 15.793 oz Weight 279 lb 15.793 oz I&O: 07/03/18 07/04/18 07/05/18 06:59 06:59 06:59 Intake Total 3250 5200 Balance 3250 5200 Result Diagrams: 07/04/18 07:18 07/04/18 07:20 Phys Exam - Physical Examination Constitutional: NAD HEENT: PERRLA, moist MMs, sclera anicteric Neck: no JVD, supple Respiratory: no wheezing, no rales, no rhonchi Cardiovascular: RRR, no significant murmur, no rub Gastrointestinal: soft, non-tender, no distention, positive bowel sounds Musculoskeletal: no edema, pulses present Neurological: non-focal, normal sensation Lymphatic: no nodes Psychiatric: normal affect, A&O x 3 Skin: no rash, normal turgor Dx/Plan (1) Acute kidney failure Status: Acute (2) Gastroenteritis Code(s): K52.9 - NONINFECTIVE GASTROENTERITIS AND COLITIS, UNSPECIFIED Status : Acute (3) Sepsis with acute organ dysfunction Code(s): A41.9 - SEPSIS, UNSPECIFIED ORGANISM; R65.20 - SEVERE SEPSIS WITHOUT SEPTIC SHOCK Status: Acute (4) BPH (benign prostatic hyperplasia) Code(s): N40.0 - BENIGN PROSTATIC HYPERPLASIA WITHOUT LOWER URINRY TRACT SYMP Status: Chronic (5) COPD (chronic obstructive pulmonary disease) Status: Chronic (6) Chronic respiratory failure with hypoxia, on home O2 therapy Code(s): J96.11 - CHRONIC RESPIRATORY FAILURE WITH HYPOXIA; Z99.81 - DEPENDENCE ON SUPPLEMENTAL OXYGEN Status: Chronic (7) Dyslipidemia Code(s): E78.5 - HYPERLIPIDEMIA, UNSPECIFIED Status: Chronic (8) Hypertension Code(s): I10 - ESSENTIAL (PRIMARY) HYPERTENSION Status: Chronic (9) Obesity (BMI 30-39.9) Code(s): E66.9 - OBESITY, UNSPECIFIED Status: Chronic (10) Tobacco abuse Code(s): Z72.0 - TOBACCO USE Status: Chronic - Plan cont current plan of care * stool is negative for infection * his diarrhoea improving * his renal function improving * medication reviewed as below * symptomatic treatment * monitor labs. * continue IVF Review of Systems - Review of Systems ENT: negative: Ear Pain, Ear Discharge, Nose Pain, Nose Discharge, Nose Congestion, Mouth Pain, Mouth Swelling, Throat Pain, Throat Swelling, Other Respiratory: negative: Cough, Dry, Shortness of Breath, Hemoptysis, SOB with Excertion, Pleuritic Pain, Sputum, Wheezing Cardiovascular: negative: chest pain, palpitations, orthopnea, paroxysmal nocturnal dyspnea, edema, light headedness, other Gastrointestinal: negative: Nausea, Vomiting, Abdominal Pain, Diarrhea, Constipation, Melena, Hematochezia, Other Genitourinary: negative: Dysuria, Frequency, Incontinence, Hematuria, Retention , Other Musculoskeletal: negative: Neck Pain, Shoulder Pain, Arm Pain, Back Pain, Hand Pain, Leg Pain, Foot Pain, Other Skin: negative: Rash, Lesions, Gilbert, Bruising, Other - Medications/Allergies Allergies/Adverse Reactions: Allergies Allergy/AdvReac Type Severity Reaction Status Date / Time iodine Allergy Verified 07/02/18 19:43 Medications: Current Medications Acetaminophen (Tylenol) 1,000 mg PO Q6H PRN PRN Reason: Mild Pain (1-3) Artificial Tears (Tears Naturale) 2 drop EA EYE PRN PRN PRN Reason: Dry Eyes Ascorbic Acid (Vitamin C) 1,000 mg PO DAILY REPLACED BY [facility] Last Admin: 07/04/18 07:57 Dose: 1,000 mg Atorvastatin Calcium (Lipitor) 10 mg PO DAILY REPLACED BY [facility] Last Admin: 07/04/18 07:56 Dose: 10 mg Calcium Carbonate (Tums) 1,000 mg PO Q4H PRN PRN Reason: Heartburn or Indigestion Diphenoxylate HCl/Atropine (Lomotil) 1 tab PO Q6H PRN PRN Reason: Diarrhea/Loose Stools Last Admin: 07/04/18 07:58 Dose: 1 tab Famotidine (Pepcid) 20 mg PO DAILY REPLACED BY [facility] Last Admin: 07/04/18 07:56 Dose: 20 mg Finasteride (Proscar) 5 mg PO DAILY REPLACED BY [facility] Last Admin: 07/04/18 07:56 Dose: 5 mg Guaifenesin (Robitussin Sf) 200 mg PO Q4H PRN PRN Reason: Cough Hydralazine HCl (Apresoline) 10 mg SLOW IVP Q4H PRN PRN Reason: SBP > 180 and HR < 70 Sodium Chloride (Normal Saline 0.9%) 1,000 mls @ 125 mls/hr IV .Q8H REPLACED BY [facility] Last Admin: 07/04/18 07:57 Dose: Not Given Ipratropium [place] (Atrovent) 2.5 ml NEB [id number] REPLACED BY [facility] Last Admin: 07/04/18 08:01 Dose: 2.5 ml Loperamide HCl (Imodium) 2 mg PO PRN PRN PRN Reason: Diarrhea/Loose Stools Last Admin: 07/03/18 19:36 Dose: 2 mg Loratadine (Claritin) 10 mg PO DAILYPRN PRN PRN Reason: Sinus Symptoms Metoprolol Tartrate (Lopressor) 12.5 mg PO BID REPLACED BY [facility] Last Admin: 07/04/18 07:54 Dose: 12.5 mg Mineral Oil/White Petrolatum (Eucerin Cream) 0 gm TOP BIDPRN PRN PRN Reason: Dry Skin Mometasone Furoate (Asmanex Twisthaler) 1 puff INH 1830 REPLACED BY [facility] Last Admin: 07/03/18 19:49 Dose: 1 puff Ondansetron HCl (Zofran Odt) 4 mg PO Q6H PRN PRN Reason: Nausea/Vomiting Ondansetron HCl (Zofran) 4 mg IVP Q6H PRN PRN Reason: Nausea/Vomiting Sodium Chloride ([place] Nasal [place] 0.65%) 0 ml EA NARE QIDPRN PRN PRN Reason: Nasal Congestion Sodium Chloride (Flush - Normal Saline) 10 ml IVF Q12HR REPLACED BY [facility] Last Admin: 07/04/18 07:57 Dose: Not Given Sodium Chloride (Flush - Normal Saline) 10 ml IVF PRN PRN PRN Reason: Saline Flush Tamsulosin HCl (Flomax) 0.4 mg PO DAILY REPLACED BY [facility] Last Admin: 07/04/18 07:54 Dose: 0.4 mg Throat Lozenges (Cepastat Lozenges) 1 margot PO Q2H PRN PRN Reason: Sore Throat
[2018-07-04 09:09] LABS: Anisocytosis SLIGHT = 6-15 cells (100X) (0-5/hpf); Band 27 % (5-11); Burr Cells SLIGHT = 2-5 cells (100X) (0-1/hpf); Hypochromia SLIGHT = 6-15 cells (100X) (0-5/hpf); Lymphocytes 4 % (21-51); MDiff Complete? YES; Microcytosis SLIGHT = 6-15 cells (100X) (0-5/hpf); Monocytes 3 % (0-10); Neutrophil 64 % (42-75); Platelet Morphology Comment Appears Adequate; Reactive Lymphocytes 2 % (0-10)
[2018-07-04] MEDS ORDERED: Ziprasidone 20 MG VIAL IM PRN (11:12)
[2018-07-04] MEDS: Mometasone Furoate 120 PUFF 220 MCG INH SCH (18:26)
[2018-07-04] MEDS ORDERED: Metoprolol Tartrate 5 MG/5 ML VIAL IVP PRN (23:16)
[2018-07-05] MEDS ORDERED: Diltiazem HCl 125 MG, Admixture Fee 1 EACH in Sodium Chloride 0.9% 100 ML IVPB SCH (02:30)
[2018-07-05] MEDS ORDERED: Enoxaparin Sodium 80 MG/0.8 ML SYRINGE SC SCH (02:30)
--- NOTE | 2018-07-05 04:26 | PDOC.EVN ---
Event Note - Event Note Event Note: Call received earlier in the night from nurse that patient was having sinus tach , patient HR was slowed with metoprolol and EKG showed atrial fibrillation. At this point in time will give cardizem 10mg IV x 1 bolus and start drip at 5cc/ hr. [id number] of 2, will do lovenox 80mg subQ x 1 dose for now. Further anticoagulation and managment per day time. PRN Metoprolol 5mg IV q6hrs for HR > 120. Will trend enzymes as well.
[2018-07-05 06:29] LABS: Anion Gap 20 mmol/L (10-20); BUN (Urea Nitrogen) 72 mg/dL (8.4-25.7); Calc. Creatinine Clearance 60 mL/min (70-130); Calcium 8.3 mg/dL (7.8-10.44); Carbon Dioxide 16 mmol/L (23-31); Chloride 110 mmol/L (98-107); Estimated GFR-MDRD 32; Glucose 95 mg/dL (80-115); Sodium 142 mmol/L (136-145)
[2018-07-05 06:35] LABS: Troponin I Less than 0.010 ng/mL (< 0.028)
[2018-07-05 06:51] LABS: Band 26 % (5-11); Hemoglobin 11.9 g/dL (14.0-18.0); Hypochromia SLIGHT = 6-15 cells (100X) (0-5/hpf); Lymphocytes 9 % (21-51); MDiff Complete? YES; Mean Corpuscular HGB CONC 32.4 g/dL (32.0-36.0); Mean Corpuscular Hemoglobin 30.1 pg (27.0-31.0); Mean Corpuscular Volume 92.7 fL (78.0-98.0); Mean Platelet Volume 7.6 fL (7.4-10.4); Metamyelocyte 3 % (0-0); Monocytes 8 % (0-10); Myelocyte 1 % (0-0); Neutrophil 53 % (42-75); Platelet Count 152 thou/uL (130-400); Platelet Morphology Comment Appears Adequate; RBC Distribution Width 13.9 % (11.5-14.5); Red Blood Cell (RBC) Count 3.97 mill/uL (4.70-6.10); White Blood Cell (WBC) Count 10.1 thou/uL (4.8-10.8)
[2018-07-05] MEDS: Ipratropium Bromide 2.5 ml Neb NEB SCH ×3 (08:14→19:05)
[2018-07-05 08:55] LABS: Free T4 (Free Thyroxine) 0.54 ng/dL (0.70-1.48)
[2018-07-05] MEDS ORDERED: Enoxaparin Sodium 40 MG/0.4 ML SYRINGE SC SCH (09:00)
[2018-07-05] MEDS ORDERED: Enoxaparin Sodium 120 MG/0.8 ML SYRINGE SC SCH (09:00)
[2018-07-05] MEDS: Cefepime 1 GM in Sodium Chloride 0.9% 100 ML IVPB SCH ×2 (10:23→20:19)
[2018-07-05] MEDS: Ascorbic Acid 500 mg Chewable Tablet PO SCH (10:23)
[2018-07-05] MEDS: Atorvastatin Calcium 10 MG TAB PO SCH (10:23)
[2018-07-05] MEDS: Famotidine 20 MG TAB PO SCH (10:24)
[2018-07-05] MEDS: Saccharomyces boulardii 250 MG CAP PO SCH (10:25)
[2018-07-05] MEDS: Metoprolol Tartrate 25 MG TAB PO SCH ×2 (10:25→20:25)
[2018-07-05] MEDS: Finasteride 5 MG TAB PO SCH (10:25)
[2018-07-05] MEDS: Tamsulosin HCl 0.4 MG CAP PO SCH (10:26)
[2018-07-05 10:30] LABS: Hemoglobin 11.2 g/dL (14.0-18.0); Platelet Count 162 thou/uL (130-400)
[2018-07-05] MEDS: Sodium Chloride 0.9% 1,000 ML IV SCH (10:32)
[2018-07-05] MEDS ORDERED: Sodium Chloride 0.9% 500 ML IVPB SCH (11:15)
[2018-07-05] MEDS ORDERED: Digoxin 0.5 MG/2 ML AMP SLOW IVP SCH (11:45)
--- NOTE | 2018-07-05 12:25 | PDOC.PN ---
- Subjective Encounter Start Date: 07/05/18 Encounter Start Time: 07:30 -: old records requested/rev Patient seen and examined. No overnight events pt appears confused, he required tele for afib with RVR - Objective Resuscitation Status - Order Detail: 07/02/18 15:01 Resuscitation Status Routine Resuscitation Status: FULL: Full Resuscitation MAR Reviewed: Yes Vital Signs & Weight: Vital Signs (12 hours) Temp Pulse Resp BP Pulse Ox 07/05/18 11:57 122 H 07/05/18 08:15 92 L 07/05/18 08:14 122 H 16 07/05/18 08:06 98.9 F 119 H 20 98/59 L 92 L 07/05/18 04:47 95 07/05/18 04:06 96.6 F L 120 H 18 111/56 L 91 L 07/05/18 01:35 96 07/05/18 00:25 98.1 F 128 H 18 97/55 L 96 Weight Admit Weight 279 lb 15.793 oz Weight 259 lb 4.8 oz I&O: 07/04/18 07/05/18 07/06/18 06:59 06:59 06:59 Intake Total 5200 824.4 Output Total 550 Balance 5200 274.4 Result Diagrams: 07/05/18 10:06 07/05/18 05:42 Additional Labs: Accuchecks 07/04/18 19:34 POC Glucose 94 Radiology Reviewed by me: Yes (chest xray reviewed) EKG Reviewed by me: Yes (afib) Phys Exam - Physical Examination Constitutional: NAD confused HEENT: PERRLA, sclera anicteric Neck: no JVD, supple Respiratory: no wheezing, no rales, no rhonchi Cardiovascular: no significant murmur, irregular Gastrointestinal: soft, non-tender, no distention, positive bowel sounds obesity+ Musculoskeletal: edema present Neurological: non-focal Lymphatic: no nodes Psychiatric: normal affect Skin: no rash, normal turgor Dx/Plan (1) Acute kidney failure Status: Acute (2) Gastroenteritis Code(s): K52.9 - NONINFECTIVE GASTROENTERITIS AND COLITIS, UNSPECIFIED Status : Acute (3) Sepsis with acute organ dysfunction Code(s): A41.9 - SEPSIS, UNSPECIFIED ORGANISM; R65.20 - SEVERE SEPSIS WITHOUT SEPTIC SHOCK Status: Acute (4) BPH (benign prostatic hyperplasia) Code(s): N40.0 - BENIGN PROSTATIC HYPERPLASIA WITHOUT LOWER URINRY TRACT SYMP Status: Chronic (5) COPD (chronic obstructive pulmonary disease) Status: Chronic (6) Chronic respiratory failure with hypoxia, on home O2 therapy Code(s): J96.11 - CHRONIC RESPIRATORY FAILURE WITH HYPOXIA; Z99.81 - DEPENDENCE ON SUPPLEMENTAL OXYGEN Status: Chronic (7) Dyslipidemia Code(s): E78.5 - HYPERLIPIDEMIA, UNSPECIFIED Status: Chronic (8) Hypertension Code(s): I10 - ESSENTIAL (PRIMARY) HYPERTENSION Status: Chronic (9) Obesity (BMI 30-39.9) Code(s): E66.9 - OBESITY, UNSPECIFIED Status: Chronic (10) Tobacco abuse Code(s): Z72.0 - TOBACCO USE Status: Chronic (11) Acute metabolic encephalopathy Code(s): G93.41 - METABOLIC ENCEPHALOPATHY Status: Acute (12) Atrial fibrillation with RVR Code(s): I48.91 - UNSPECIFIED ATRIAL FIBRILLATION Status: Acute - Plan cont current plan of care, continue antibiotics, PT/OT, clinical social work therapist * echo pending * cardiology consulted * cardizem drip if tolerated otherwise digoxin for rate control in case hypotension * medication reviewed as below * symptomatic treatment * add cefepime empirically for bandemia * chest xray done and reviewed * get CT brain and abdomen pelvis without contrast * renal function improving * continue IVF * check TFT. Review of Systems - Review of Systems Other: not reliable due to his confused state - Medications/Allergies Allergies/Adverse Reactions: Allergies Allergy/AdvReac Type Severity Reaction Status Date / Time iodine Allergy Verified 07/02/18 19:43 Medications: Current Medications Acetaminophen (Tylenol) 1,000 mg PO Q6H PRN PRN Reason: Mild Pain (1-3) Artificial Tears (Tears Naturale) 2 drop EA EYE PRN PRN PRN Reason: Dry Eyes Ascorbic Acid (Vitamin C) 1,000 mg PO DAILY [facility] Last Admin: 07/05/18 10:23 Dose: Not Given Atorvastatin Calcium (Lipitor) 10 mg PO DAILY [facility] Last Admin: 07/05/18 10:23 Dose: Not Given Calcium Carbonate (Tums) 1,000 mg PO Q4H PRN PRN Reason: Heartburn or Indigestion Digoxin (Lanoxin) 0.25 mg SLOW IVP NOW [facility] Stop: 07/05/18 14:00 Last Admin: 07/05/18 11:57 Dose: 0.25 mg Diphenoxylate HCl/Atropine (Lomotil) 1 tab PO Q6H PRN PRN Reason: Diarrhea/Loose Stools Last Admin: 07/04/18 07:58 Dose: 1 tab Enoxaparin Sodium (Lovenox) 120 mg SC 0900 [facility] Last Admin: 07/05/18 10:31 Dose: 120 mg Famotidine (Pepcid) 20 mg PO DAILY [facility] Last Admin: 07/05/18 10:24 Dose: Not Given Finasteride (Proscar) 5 mg PO DAILY [facility] Last Admin: 07/05/18 10:25 Dose: Not Given Guaifenesin (Robitussin Sf) 200 mg PO Q4H PRN PRN Reason: Cough Hydralazine HCl (Apresoline) 10 mg SLOW IVP Q4H PRN PRN Reason: SBP > 180 and HR < 70 Sodium Chloride (Normal Saline 0.9%) 1,000 mls @ 75 mls/hr IV .[id number] [facility] Last Admin: 07/05/18 10:32 Dose: 1,000 mls Cefepime HCl 1 gm/ Sodium (Chloride) 100 mls @ 200 mls/hr IVPB Q12HR [facility] Last Admin: 07/05/18 10:23 Dose: 100 mls Sodium Chloride (Normal Saline 0.9%) 500 mls @ 0 mls/hr IVPB NOW [facility] Stop: 07/05/18 14:00 Last Admin: 07/05/18 12:04 Dose: 500 mls Ipratropium [place] (Atrovent) 2.5 ml NEB [id number] [facility] Last Admin: 07/05/18 08:14 Dose: 2.5 ml Loperamide HCl (Imodium) 2 mg PO PRN PRN PRN Reason: Diarrhea/Loose Stools Last Admin: 07/03/18 19:36 Dose: 2 mg Loratadine (Claritin) 10 mg PO DAILYPRN PRN PRN Reason: Sinus Symptoms Metoprolol Tartrate (Lopressor) 12.5 mg PO BID [facility] Last Admin: 07/05/18 10:25 Dose: Not Given Metoprolol Tartrate (Lopressor) 5 mg IVP Q6H PRN PRN Reason: Tachycardia, For HR>120 Last Admin: 07/05/18 01:12 Dose: 5 mg Mineral Oil/White Petrolatum (Eucerin Cream) 0 gm TOP BIDPRN PRN PRN Reason: Dry Skin Mometasone Furoate (Asmanex Twisthaler) 1 puff INH 1830 [facility] Last Admin: 07/04/18 18:26 Dose: 1 puff Ondansetron HCl (Zofran Odt) 4 mg PO Q6H PRN PRN Reason: Nausea/Vomiting Ondansetron HCl (Zofran) 4 mg IVP Q6H PRN PRN Reason: Nausea/Vomiting Saccharomyces Boulardii (Florastor) 250 mg PO DAILY [facility] Last Admin: 07/05/18 10:25 Dose: Not Given Sodium Chloride ([place] Nasal [place] 0.65%) 0 ml EA NARE QIDPRN PRN PRN Reason: Nasal Congestion Sodium Chloride (Flush - Normal Saline) 10 ml IVF Q12HR [facility] Last Admin: 07/05/18 10:25 Dose: Not Given Sodium Chloride (Flush - Normal Saline) 10 ml IVF PRN PRN PRN Reason: Saline Flush Tamsulosin HCl (Flomax) 0.4 mg PO DAILY [facility] Last Admin: 07/05/18 10:26 Dose: Not Given Throat Lozenges (Cepastat Lozenges) 1 margot PO Q2H PRN PRN Reason: Sore Throat Ziprasidone (Geodon) 10 mg IM Q4H PRN PRN Reason: AGITATION Last Admin: 07/04/18 11:33 Dose: 10 mg
--- NOTE | 2018-07-05 12:58 | RAD ---
PORTABLE CHEST: DATE: 07/05/2018. PROVIDED CLINICAL HISTORY: Bandemia. FINDINGS: Comparison 02/23/2018. Cardiac silhouette remains enlarged. The pulmonary vasculature appears upper limits of normal. No focal consolidation, pleural fluid, or pneumothorax apparent. IMPRESSION: Cardiomegaly without definite evidence for an acute cardiopulmonary process. POS: H
--- NOTE | 2018-07-05 13:01 | CT ---
CT BRAIN: DATE: 07/05/2018. PROVIDED CLINICAL HISTORY: Altered mental status. FINDINGS: Comparison is made with the study dated 02/16/2018. The ventricular system is unchanged in size and m orphology. There is no evidence for intracranial hemorrhage or mass effect. Microvascular ischemic changes are redemonstrated, similar to prior study. The extracranial soft tissues and osseous struct ures demonstrate no acute findings. IMPRESSION: No evidence for intracranial hemorrhage or mass effect. POS: JASPER
--- NOTE | 2018-07-05 13:34 | CT ---
CT ABDOMEN WITHOUT CONTRAST CT PELVIS WITHOUT CONTRAST: HISTORY: Loose bowel. Gastroenteritis. COMPARISON: 02/16/2018. TECHNIQUE: An abdomen and pelvis CT are performed without IV or oral contrast. Coronal reformatted images are s ubmitted for interpretation. FINDINGS: ABDOMEN CT: Small bilateral effusions with adjacent parenchymal changes likely due to atelectasis. Heart size is normal. No significant pericardial fluid. The descending thoracic aorta and abdominal aorta have a normal caliber. No periaortic fat stranding. Symmetric attenuation of the psoas muscles. Unremarkable gallbladder. Limited evaluation of the solid organs due to the lack of IV contrast administration. Grossly, the s olid organs have a normal attenuation. Bilaterally, no hydronephrosis or perinephric fat stranding. Nonobstructing calcification in the low er pole of the left kidney measuring 0.7 cm. Hypodensity in the mid right renal cortex has an attenu ation coefficient of 13 Hounsfield units corresponding to a 1.6 cm cyst. Bilaterally, no obstructive uropathy. No gastrohepatic, retrocrural, or periportal lymphadenopathy. Small hiatal hernia is identified. This hernia is adjacent to a graft from a probable previous hernia repair. Oral contrast is noted in the stomach. Limited evaluation of the remainder of the alimenta ry canal due to inadequate oral contrast opacification. Nevertheless, there appear to be air-filled loops of small bowel with scattered differential air fluid levels. Partial obstructive process canno t be excluded. The anastomosis of the small bowel and colon is grossly unremarkable. Right hemicole ctomy is noted. Mild mucosal thickening and pericolonic fat stranding involving the sigmoid colon. Correlate for colitis. There is fluid in the left pericolic gutter, likely reactive. No mesenteric mass or free air. There are some slightly enlarged right lower quadrant mesenteric lymph nodes. Rep resentative lymph node measures 1.3 x 1.5 cm. There is a small anterior right abdominal wall hernia containing a segment of small bowel through the defect. No evidence of associated bowel obstruction/incarceration. There is a probable adjacent pr evious hernia repair. Nonspecific subcutaneous emphysema in the anterior left abdominal wall. CT PELVIS: Urinary bladder is unremarkable. No pelvic mass, lymphadenopathy, free air, or free fluid. IMPRESSION: 1. Slightly prominent air-filled loops of small bowel in the right hemiabdomen. Partial obstructive process is suspected. There is a small focus of bowel herniation adjacent to a previous hernia repa ir in the right hemiabdomen. No evidence of associated bowel obstruction or incarceration. 2. Mucosal thickening involving the sigmoid colon. Correlate for colitis. POS: MARCUSH
[2018-07-05] MEDS: Digoxin 0.5 MG/2 ML AMP SLOW IVP SCH ×3 (13:38→23:56)
[2018-07-05 14:03] LABS: Lactic Acid 0.7 mmol/L (0.5-2.2)
[2018-07-05 14:11] LABS: Troponin I 0.018 ng/mL (< 0.028)
[2018-07-05] MEDS: Mometasone Furoate 120 PUFF 220 MCG INH SCH (19:19)
[2018-07-05] MEDS: Amiodarone 200 MG TAB PO SCH (20:19)
[2018-07-05] MEDS: Heparin 5,000 UNITS/ML VIAL SC SCH (20:19)
[2018-07-05 21:29] LABS: Troponin I 0.019 ng/mL (< 0.028)
--- NOTE | 2018-07-05 21:29 | CON ---
DATE OF CONSULTATION: 07/05/2018 INDICATION FOR CONSULTATION: A 68-year-old patient with intermittent atrial fibrillation. HISTORY OF PRESENT ILLNESS: This is a very unfortunate gentleman actually who had been here previously back in 02/2018, at which time he had some acute respiratory failure due to COPD. He also had some episodes of nonsustained ventricular tachycardia and SVT at that time and also had some metabolic encephalopathy. He has been at home. Again, he presented after having what appears to be some dehydration after some diarrhea. Since being in the hospital, he has developed again his atrial fibrillation and flutter. He was given IV diltiazem and then had a decrease in his blood pressure and then he converted to sinus rhythm, but now subsequently converted back to what appears to be atrial flutter. He had an echocardiogram in February, which showed an ejection fraction of 40% to 45% with dilated left ventricle and also moderate dilated left atrium with mild tricuspid and mitral valve regurgitation. He eventually was discharged from the hospital and apparently did relatively well, but at home, he is very inactive. He is pretty much sits around the house and presented again after he was having some falls. He required assistance to get up. He was found to have an elevated WBC. He was admitted to the hospital due to again acute respiratory failure and also with diarrhea. His sodium was 142, but creatinine was 2.06 with a BUN of 72. His BNP was elevated at 885, which is somewhat against dehydration. However, he has right-sided dilatation in the past, but does not appear to be the case. He did have some left atrial dilatation by echocardiogram. He is still somewhat confused and lethargic this afternoon when I am seeing him and the chest x-ray appeared to have some cardiomegaly, but by CT scan, this is unremarkable. By echocardiogram, it did not appear to have left ventricular dilatation. He denies any complaints at this time, but he is somewhat lethargic and does not answer all the questions appropriately, seems to be very confused. He did have a CT scan, which was unremarkable. PAST MEDICAL HISTORY: Please refer to the notes dictated by my nurse practitioner. SOCIAL HISTORY: Please refer to the notes dictated by my nurse practitioner. FAMILY HISTORY: Please refer to the notes dictated by my nurse practitioner. REVIEW OF SYSTEMS: Please refer to the notes dictated by my nurse practitioner. ALLERGIES: PLEASE REFER TO THE NOTES DICTATED BY MY NURSE PRACTITIONER. MEDICATIONS: Please refer to the notes dictated by my nurse practitioner. PHYSICAL EXAMINATION: GENERAL: Reveals an elderly gentleman, who appears to be overall generally ill. VITAL SIGNS: Blood pressure is 98/53, early was 158/58; heart rates in the one teens to 120s with atrial fibrillation or flutter. Respiratory rate in the 20s. He is now afebrile. HEENT: Unremarkable, normocephalic. I did not hear any significant bruits. CHEST: Actually has decreased breath sounds, but he does not take a deep inspiratory effort. I do not hear any rales, rhonchi, or wheezing. CARDIOVASCULAR: Reveals an irregular rhythm at this time, most likely compatible with atrial fibrillation. I did not hear any gross murmurs, heaves, thrills, bruits, or rubs. ABDOMEN: Shows obesity. Positive bowel sounds are present, somewhat tympanic. I did not elicit any significant tenderness. EXTREMITIES: Show no significant clubbing or cyanosis. No lower extremity edema was appreciated. Pedal pulses are present. NEUROLOGIC: As noted above, he seems to be somewhat lethargic and confused. IMAGING STUDIES: EKG shows atrial fibrillation on the monitor and when he arrived, the admitting EKG also showed what appears to be atrial fibrillation, but he was in sinus rhythm for the time, he does have atrial fibrillation with RVR at times. He did not tolerate the diltiazem since his renal function is elevated, but he has a relatively well-preserved left ventricular systolic function at least in the last echocardiogram. IMPRESSION: 1. Atrial fibrillation with intermittent atrial flutter and intermittent sinus rhythm, perhaps we will start him on amiodarone to see whether or not this will control the atrial fibrillation or flutter. If not, he may need to undergo ablation of the atrial flutter and then control of the atrial fibrillation by medical management. We will start him on amiodarone to see if he is able to tolerate this medication and see if we can control his atrial fibrillation. 2. Acute renal insufficiency with elevated creatinine, which may be due to dehydration, due to his recent diarrhea and gastroenteritis. 3. Chronic hypoxic respiratory failure. He is on home O2 I believe and also inhalers. 4. Possible sepsis or bandemia with elevated WBC, which seems to be improving after antibiotics and we will continue this medications, but also agree with heparin for anticoagulation rather than the Lovenox since he has renal insufficiency. Hopefully, this will improve with rehydration. Job ID: [id number]
[2018-07-06] MEDS: Ipratropium Bromide 2.5 ml Neb NEB SCH ×4 (00:13→19:22)
[2018-07-06] MEDS: Sodium Chloride 0.9% 1,000 ML IV SCH (01:30)
[2018-07-06] MEDS ORDERED: Dextrose 5 % And 0.9 % NaCl 1,000 ML IV SCH (07:30)
[2018-07-06 07:56] VITALS: BP 125/76
--- NOTE | 2018-07-06 08:37 | PDOC.CTH ---
Cardiology Progress Note - Subjective The pt seen and examined. No overnight events. The pt is still confused; however, he can open his eyes this AM. - Objective Vital Signs Temp Pulse Resp BP Pulse Ox 07/06/18 07:30 97.6 F 114 H 20 125/76 94 L 07/06/18 07:17 125 H 26 H 90 L 07/06/18 03:40 97.7 F 94 22 H 121/58 L 97 07/06/18 00:13 119 H 24 H 89 L 07/05/18 23:59 120 H 20 143/63 H 97 07/05/18 23:56 121 H Admit Weight 279 lb 15.793 oz Weight 262 lb 07/05/18 07/06/18 07/07/18 06:59 06:59 06:59 Intake Total 1869.4 Output Total 2024 Balance -155.6 - Physical Examination Lungs: other: (diminished at bases) Heart: other: (irregular) Abdomen: soft Extremities: other: (mild Generalized edema) - Telemetry Telemetry Rhythm: Afib/Aflutter/SR - Labs Result Diagrams: 07/06/18 11:09 07/06/18 11:08 Troponin/CKMB Troponin I 0.019 ng/mL (< 0.028) 07/05/18 20:30 - Assessment/Plan 1. Afib/Aflutter/SR - with HR 90-120s with Amiodarone 400mg TID (since 2018) and Digoxin 0.125mg PO daily. On Heparin 5000 units BID 2. TEO - worse today.; NS is off for now 3. HTN - improving 4. COPD - no changed 5. Hyperlipidemia - On Lipitor 6. Metabolic encephalopathy - more lethargic today 7. Tobocco abuse - 8. Gastroenteritis - MAR reviewed * Echo on 07/05/2018 showed EF 55-60%, trace MR, and mild TR Pt. seen and eval. by me. I agree with the A/P by the GENETICS TEACHER.The pts. condition has deteriorated and his abd. is more distended and hypoactive BS. He is less responsive and the family has opted to make him DNR status. Review of Systems - Review of Systems Constitutional: reports: see HPI
[2018-07-06] MEDS: Heparin 5,000 UNITS/ML VIAL SC SCH ×2 (08:55→20:14)
[2018-07-06] MEDS: Cefepime 1 GM in Sodium Chloride 0.9% 100 ML IVPB SCH ×2 (08:55→20:14)
[2018-07-06] MEDS: Tamsulosin HCl 0.4 MG CAP PO SCH (08:57)
[2018-07-06] MEDS: Famotidine 20 MG TAB PO SCH (08:57)
[2018-07-06] MEDS: Finasteride 5 MG TAB PO SCH (08:57)
[2018-07-06] MEDS: Atorvastatin Calcium 10 MG TAB PO SCH (08:57)
[2018-07-06] MEDS: Saccharomyces boulardii 250 MG CAP PO SCH (08:57)
[2018-07-06] MEDS: Ascorbic Acid 500 mg Chewable Tablet PO SCH (08:57)
[2018-07-06] MEDS: Metoprolol Tartrate 25 MG TAB PO SCH (08:57)
[2018-07-06] MEDS: Amiodarone 200 MG TAB PO SCH ×3 (08:57→20:14)
[2018-07-06] MEDS ORDERED: Digoxin 0.125 MG TAB PO SCH (09:00)
[2018-07-06] MEDS ORDERED: Sodium Chloride 0.9% (PF) 10 ML VIAL FS PRN (09:46)
[2018-07-06] MEDS ORDERED: Pantoprazole 40 MG VIAL IVP SCH (10:00)
--- NOTE | 2018-07-06 10:24 | PDOC.PN ---
- Subjective Encounter Start Date: 07/06/18 Encounter Start Time: 07:00 this morning pt was not doing well, he was having breathing difficulty, his abdomen is distended, he is confused and lethargic, not following any command, he is hypoxic, and he has afib with RVR, he is NPO - Objective Resuscitation Status - Order Detail: 07/06/18 09:47 Resuscitation Status Routine Resuscitation Status: DNAR: NO Resuscitation Discussed with: discussed with and confirmed MAR Reviewed: Yes Vital Signs & Weight: Vital Signs (12 hours) Temp Pulse Resp BP Pulse Ox 07/06/18 07:30 97.6 F 114 H 20 125/76 94 L 07/06/18 07:17 125 H 26 H 90 L 07/06/18 03:40 97.7 F 94 22 H 121/58 L 97 07/06/18 00:13 119 H 24 H 89 L 07/05/18 23:59 120 H 20 143/63 H 97 07/05/18 23:56 121 H Weight Admit Weight 279 lb 15.793 oz Weight 262 lb I&O: 07/05/18 07/06/18 07/07/18 06:59 06:59 06:59 Intake Total 1869.4 Output Total 2025 Balance -155.6 Result Diagrams: 07/05/18 10:06 07/05/18 05:42 Radiology Reviewed by me: Yes (CT abdomen and CT brain reviewed) EKG Reviewed by me: Yes (afib with RVR) Phys Exam - Physical Examination respi distress HEENT: PERRLA, sclera anicteric Neck: no JVD, supple Respiratory: no wheezing, no rales, no rhonchi reduced air entry both side Cardiovascular: no significant murmur, irregular distended, surgical scar, sluggish bowel sound Musculoskeletal: pulses present, edema present unable to assess Lymphatic: no nodes Deviation from normal: unable to assess Skin: no rash, normal turgor Dx/Plan (1) Acute kidney failure Status: Acute (2) Gastroenteritis Code(s): K52.9 - NONINFECTIVE GASTROENTERITIS AND COLITIS, UNSPECIFIED Status : Acute (3) Sepsis with acute organ dysfunction Code(s): A41.9 - SEPSIS, UNSPECIFIED ORGANISM; R65.20 - SEVERE SEPSIS WITHOUT SEPTIC SHOCK Status: Acute (4) BPH (benign prostatic hyperplasia) Code(s): N40.0 - BENIGN PROSTATIC HYPERPLASIA WITHOUT LOWER URINRY TRACT SYMP Status: Chronic (5) COPD (chronic obstructive pulmonary disease) Status: Chronic (6) Chronic respiratory failure with hypoxia, on home O2 therapy Code(s): J96.11 - CHRONIC RESPIRATORY FAILURE WITH HYPOXIA; Z99.81 - DEPENDENCE ON SUPPLEMENTAL OXYGEN Status: Chronic (7) Dyslipidemia Code(s): E78.5 - HYPERLIPIDEMIA, UNSPECIFIED Status: Chronic (8) Hypertension Code(s): I10 - ESSENTIAL (PRIMARY) HYPERTENSION Status: Chronic (9) Obesity (BMI 30-39.9) Code(s): E66.9 - OBESITY, UNSPECIFIED Status: Chronic (10) Tobacco abuse Code(s): Z72.0 - TOBACCO USE Status: Chronic (11) Acute metabolic encephalopathy Code(s): G93.41 - METABOLIC ENCEPHALOPATHY Status: Acute (12) Atrial fibrillation with RVR Code(s): I48.91 - UNSPECIFIED ATRIAL FIBRILLATION Status: Acute (13) Partial small bowel obstruction Status: Acute Comment: vs Ileus - Plan cont current plan of care, plan discussed w/ family, continue antibiotics, respiratory therapy * continue NPO * change some meds IV, digoxin IV, add protonix IV * continue cefepime and add IV flagyl * continue gentle IVF * will transfer to I[facility] * consult pulmonary * consult general surgery, for partial SBO vs Ileus, pt is poor surgical candidate in case if he needs it * spoke with and confirmed pt's wish of DNR, even he did not wanted to try so DNR order placed * updated critical condition to and she expressed understanding * medication reviewed as below * symptomatic treatment * prognosis is poor. * will get ABG, xray abdomen * monitor labs Review of Systems - Review of Systems Other: unable to review due to encephalopathy - Medications/Allergies Allergies/Adverse Reactions: Allergies Allergy/AdvReac Type Severity Reaction Status Date / Time iodine Allergy Verified 07/02/18 19:43 Medications: Current Medications Acetaminophen (Tylenol) 1,000 mg PO Q6H PRN PRN Reason: Mild Pain (1-3) Albuterol/Ipratropium (Duoneb) 3 ml NEB [id number] PRN PRN Reason: SOB &/or Wheezing Amiodarone HCl (Cordarone) 400 mg PO TID [facility] Last Admin: 07/06/18 08:57 Dose: Not Given Artificial Tears (Tears Naturale) 2 drop EA EYE PRN PRN PRN Reason: Dry Eyes Budesonide (Pulmicort Neb Solution) 0.5 mg INH BID-RT [facility] Calcium Carbonate (Tums) 1,000 mg PO Q4H PRN PRN Reason: Heartburn or Indigestion Digoxin (Lanoxin) 0.125 mg SLOW IVP DAILY [facility] Guaifenesin (Robitussin Sf) 200 mg PO Q4H PRN PRN Reason: Cough Heparin Sodium (Porcine) (Heparin) 5,000 units SC BID [facility] Last Admin: 07/06/18 08:55 Dose: 5,000 units Hydralazine HCl (Apresoline) 10 mg SLOW IVP Q4H PRN PRN Reason: SBP > 180 and HR < 70 Cefepime HCl 1 gm/ Sodium (Chloride) 100 mls @ 200 mls/hr IVPB Q12HR [facility] Last Admin: 07/06/18 08:55 Dose: 100 mls Dextrose/Sodium Chloride (D5 0.9% Ns) 1,000 mls @ 50 mls/hr IV .Q20H [facility] Last Admin: 07/06/18 08:56 Dose: 1,000 mls Metronidazole 500 mg/ Device 100 mls @ 100 mls/hr IVPB 0200,1000,1800 [facility] Ipratropium Lewis (Atrovent) 2.5 ml NEB [id number] [facility] Last Admin: 07/06/18 07:17 Dose: 2.5 ml Loratadine (Claritin) 10 mg PO DAILYPRN PRN PRN Reason: Sinus Symptoms Mineral Oil/White Petrolatum (Eucerin Cream) 0 gm TOP BIDPRN PRN PRN Reason: Dry Skin Ondansetron HCl (Zofran) 4 mg IVP Q6H PRN PRN Reason: Nausea/Vomiting Pantoprazole Sodium (Protonix) 40 mg IVP DAILY [facility] Pantoprazole Sodium (Protonix) 40 mg IVP NOW [facility] Stop: 07/06/18 12:00 Saccharomyces Boulardii (Florastor) 250 mg PO DAILY [facility] Last Admin: 07/06/18 08:57 Dose: Not Given Sodium Chloride ([place] Nasal [place] 0.65%) 0 ml EA NARE QIDPRN PRN PRN Reason: Nasal Congestion Sodium Chloride (Flush - Normal Saline) 10 ml IVF Q12HR [facility] Last Admin: 07/06/18 08:57 Dose: Not Given Sodium Chloride (Flush - Normal Saline) 10 ml IVF PRN PRN PRN Reason: Saline Flush Sodium Chloride (Normal Saline Pf) 10 ml FS PRN PRN PRN Reason: RECONSTITUTION Tamsulosin HCl (Flomax) 0.4 mg PO DAILY [facility] Last Admin: 07/06/18 08:57 Dose: Not Given Throat Lozenges (Cepastat Lozenges) 1 margot PO Q2H PRN PRN Reason: Sore Throat
--- NOTE | 2018-07-06 10:55 | CON ---
DATE OF CONSULTATION: PRIMARY CARE DOCTOR: Unknown. PRIMARY BLISTER PACKING MACHINE TENDER: Gale Abreu MD. REFERRING DOCTOR: Dr. Johnson REASON FOR CARDIOLOGY CONSULT: New onset of atrial fibrillation with rapid ventricular response. HISTORY OF PRESENT ILLNESS: Mr. Johnson is a 68-year-old male with a significant history of CHF, hypertension, history of colon cancer, diverticulitis, chronic anemia. The patient presented to the emergency department for the history of multiple fall over the last 2-3 days and with progressive weakness and unsteady gait. The patient was found to have acute kidney failure, gastroenteritis, and worsening of COPD. However, the last couple of days, the patient started having more confused and symptoms like encephalopathy. The patient had a CT scan today. The brain CT scan shows no evidence of intracranial hemorrhage or mass. Early this morning around 2, the patient started having atrial fibrillation with rapid ventricular response, which is new to this patient. The patient was converted back to sinus rhythm with diltiazem IV drip. However, the diltiazem must be stopped due to the hypotensive. Then, the patient converted back to atrial fibrillation with rapid ventricular response. At this moment, the patient's telemetry record showed the patient in atrial fibrillation with heart rates of 110s to 120s. At this moment, the patient is very confused, even he cannot follow any commands at this time, so no information could be obtained from the patient, whether the patient had any cardiac complaints at this moment. The patient's echocardiogram in February 2018 shows EF of 40% to 45% akinetic posterior wall moderately dilated left atrium, mild , trace mild mitral valve regurgitation, mild MAC, and mild tricuspid regurgitation. MEDICAL HISTORY: Ongoing tobacco abuse, COPD, hypertension, colon cancer, and chronic anemia. SURGICAL HISTORY: Colon resection, status post appendectomy and laparotomy. FAMILY HISTORY: Significant family history of hypertension. SOCIAL HISTORY: He is . He usually walk with a walker or cane and also he uses a scooter. Smoking cigar every day. No alcohol or illicit drug abuse. He uses home oxygen as needed. ALLERGIES: HE IS ALLERGIC TO IODINE. HOME MEDICATIONS: 1. Proscar 5 mg once a day. 2. Pulmicort two puff twice a day. 3. Atorvastatin 10 mg once a day. 4. Flomax 0.4 mg once a day. 5. Vitamin C 1000 mg once a day. 6. Furosemide 20 mg as needed. 7. DuoNeb every 6 hours as needed. 8. Metoprolol 12.5 mg twice a day. 9. Nicotine patch. 10. Spiriva 18 mcg once a day. 11. Lodine 200 mg twice a day. REVIEW OF SYSTEMS: Noncontributory at this moment due to the confusion. PHYSICAL EXAMINATION: VITAL SIGNS: Blood pressure 103/61, 98.3 temperature, pulse is 116-120, respiratory rate 20, and O2 saturation 92% to 95% on 2 L nasal cannula. GENERAL: The patient is confused, actually drowsy, lethargic. The patient cannot follow any commands or answer the questions. HEAD: Normocephalic, atraumatic. EYES: Unable to check due to the patient refused to open his eyes. ENT AND MOUTH: Oral and nasal mucosa are moist without lesion. NECK: No JVD. Neck is supple. RESPIRATORY: Very diminished at the bases. CARDIOVASCULAR: Irregularly irregular. There is no S3 or S4. No significant murmur, hives, or thrills noted. 2+ pulses in the bilateral upper and lower extremities. No edema. ABDOMEN: Soft, nontender. No mass to palpitate at this moment. MUSCULOSKELETAL: The patient is very lethargic. He cannot follow commands at this time. Carotid pulses are present. No bruit or thrill at this moment. SKIN: Warm and dry. No lesion, rash, or erythema noted. PSYCHIATRIC: Unable to assess. NEUROLOGIC: The patient is very drowsy and the patient cannot follow commands at this moment. But at this moment, according to the nurses, the patient could answer his name, age, and date. LABORATORY DATA: WBC is 10.1, hemoglobin 11.9, hematocrit 36.8, platelet 152. Sodium 142, potassium 4.0, BUN is 72, creatinine 2.06, glucose 95, AST 17, ALT 13, BNP 885.5. Troponin is negative. TSH 2.0581 and T4 is 0.54. Chest x-ray showed cardiomegaly without definite evidence for acute cardiopulmonary process. ASSESSMENT AND PLAN: 1. New onset of atrial fibrillation with rapid ventricular response, start July 05, 2018. The patient converted back to sinus rhythm with diltiazem which had to stop due to the hypotensive. At this moment, the patient is still in atrial fibrillation with heart rate of 110s to 120s. Digoxin was given this moment 0.25 mg this morning. We would like to give 0.25 digoxin x3 and then change it to p.o. form until the patient's blood pressure is normalized. The patient's anticoagulant was changed from Lovenox to heparin 500 units twice a day due to acute kidney insufficiency. 2. Altered mental status with unknown etiology. The patient's CT scan of the head is normal. 3. Acute kidney insufficiency. The patient received normal saline 75 mL/hr and 500 mL bolus. We would like continue to monitor. 4. Chronic obstructive pulmonary disease. At this moment, the patient's condition is stable, which is managed by the patient's primary care doctor. 5. Gastroenteritis. The patient with questionable infection. The patient is on antibiotic at this moment, which is managed by primary care doctor. 6. Chronic systolic heart failure. The patient's last echocardiogram in February 2018 shows EF of 40% to 45%. At this moment, the patient does not have any symptoms of overload of fluid, but the patient has received his normal saline 75 mL/hr. We would like to continue to monitor very carefully. Thank you for allowing the Cardiology Service to participate in the care of this patient. We will follow along the patient's care team and make further recommendations as appropriate. Job ID: [id number]
--- NOTE | 2018-07-06 11:27 | RAD ---
ABDOMEN ONE VIEW: HISTORY: Pain. Distention. COMPARISON: 02/24/2018 FINDINGS: There appear to be multiple air-filled loops of bowel, some of which may be small bowel versus colon. Limited evaluation on this examination. There is a hyperdensity at the lower aspect of the pelvis, which may represent a small amount of oral contrast in a segment of small bowel. IMPRESSION: Limited evaluation. Two view abdomen radiograph is recommended. POS: [facility]
[2018-07-06 11:48] LABS: Band 42 % (5-11); Hemoglobin 11.8 g/dL (14.0-18.0); Lymphocytes 4 % (21-51); MDiff Complete? YES; Mean Corpuscular HGB CONC 32.8 g/dL (32.0-36.0); Mean Corpuscular Hemoglobin 30.4 pg (27.0-31.0); Mean Corpuscular Volume 92.6 fL (78.0-98.0); Mean Platelet Volume 7.1 fL (7.4-10.4); Metamyelocyte 2 % (0-0); Monocytes 9 % (0-10); Neutrophil 43 % (42-75); Platelet Count 183 thou/uL (130-400); Platelet Morphology Comment Appears Adequate; Red Blood Cell (RBC) Count 3.89 mill/uL (4.70-6.10); Toxic Granulation SLIGHT; White Blood Cell (WBC) Count 10.1 thou/uL (4.8-10.8)
[2018-07-06 11:58] LABS: ALT (SGPT) 20 U/L (8-55); AST (SGOT) 16 U/L (5-34); Albumin 2.5 g/dL (3.4-4.8); Alkaline Phosphatase 145 U/L (40-150); Anion Gap 17 mmol/L (10-20); BUN (Urea Nitrogen) 89 mg/dL (8.4-25.7); Bilirubin, Total 1.4 mg/dL (0.2-1.2); Calc. Creatinine Clearance 47 mL/min (70-130); Carbon Dioxide 19 mmol/L (23-31); Chloride 115 mmol/L (98-107); Digoxin 1.21 ng/mL (0.8-2.0); Estimated GFR-MDRD 26; Globulin 2.5 g/dL (2.4-3.5); Glucose 133 mg/dL (80-115); Magnesium 2.1 mg/dL (1.6-2.6); Phosphorus 6.4 mg/dL (2.3-4.7); Potassium 4.1 mmol/L (3.5-5.1)
[2018-07-06] MEDS: metroNIDAZOLE 500 MG in Premix Bag 1 BAG IVPB SCH ×2 (12:10→18:05)
[2018-07-06 12:21] LABS: Sodium 147 mmol/L (136-145)
[2018-07-06] MEDS ORDERED: Morphine 2 MG/ML SYRINGE SLOW IVP SCH (13:30)
[2018-07-06] MEDS ORDERED: Dextrose 5% in Water 1,000 ML IV SCH (14:30)
[2018-07-06] MEDS ORDERED: Bacteriostatic Water 30 ML VIAL FS PRN (14:51)
[2018-07-06] MEDS ORDERED: methylPREDNISolone Sod Succ 40 MG VIAL IVP SCH ×2 (15:00→21:00)
[2018-07-06 15:10] LABS: Actual Bicarbonate (HCO3a) 18.7 mEq/L (22-28); Base Excess (BEa) -10.3 mEq/L (-2.0 to +3.0); CO2 Tension 56.2 mmHg (35.0-45.0); Calcium, Ionized 1.16 mmol/L (1.12-1.30); Carboxyhemoglobin (COHb) 1.1 gm% (0.0-3.0); O2 Tension (PaO2) 65.9 mmHg (> 70.0); Potassium - ABG Lab 3.81 mmol/L (3.70-5.30)
[2018-07-06 15:12] LABS: Puncture Site RRA; pH, Arterial 7.14 (7.35-7.45)
[2018-07-06 15:24] VITALS: TEMP 99
[2018-07-06] MEDS: Morphine 4 MG/ML VIAL SLOW IVP PRN ×2 (16:01→17:44)
--- NOTE | 2018-07-06 17:46 | EKG ---
Test Reason : STAT Blood Pressure : / mmHG Vent. Rate : 122 BPM Atrial Rate : 113 BPM P-R Int : 000 ms QRS Dur : 182 ms QT Int : 390 ms P-R-T Axes : 000 087 -04 degrees QTc Int : 555 ms Atrial fibrillation with rapid ventricular response Non-specific intra-ventricular conduction block Abnormal ECG When compared with ECG of 16-FEB-2018 18:21, Atrial fibrillation has replaced Sinus rhythm QRS axis Shifted right Confirmed by DR. Lizbet CURTIS ([id number]) on 07/06/2018 5:46:20 PM Referred By: VAL CAMPOS Confirmed By:DR. Lizbet CURTIS
[2018-07-06] MEDS ORDERED: Vancomycin HCl 500 MG, Sodium Chloride 0.9% 100 ML PR SCH (18:00)
[2018-07-06] MEDS ORDERED: Budesonide 0.5 MG/2 ML NEB INH SCH (18:30)
[2018-07-06] MEDS ORDERED: Mometasone Furoate 120 PUFF 220 MCG INH SCH (18:30)
[2018-07-06] MEDS ORDERED: Lorazepam 2 MG/ML VIAL SLOW IVP PRN (18:35)
[2018-07-06] MEDS ORDERED: Morphine 4 MG/ML VIAL SLOW IVP SCH (19:00)
[2018-07-06] MEDS ORDERED: Scopolamine 1.5 mg/72 hour Patch TOP SCH (19:00)
--- NOTE | 2018-07-06 21:06 | CON ---
DATE OF CONSULTATION: 07/06/2018 SERVICE: Pulmonary Medicine. REASON FOR CONSULT: [facility] patient. HISTORY OF PRESENT ILLNESS: The patient is a 68-year-old white male with past medical historysignificant for colon cancer, status post partial colectomy. He has a history of hypercapnic respiratory failure in February of 2018 requiring intubation. Ultimately, he was in his usual state of health when he started having generalized weakness. He presented to the emergency department. He was subsequently placed on the floor with a diagnosis of an acute kidney injury and gastroenteritis, because he was having multiple bowel movements. He was gently hydrated. He was tolerating p.o. very poorly. Over the last 48 hours, his abdominal distention got worse. He had increasing work of breathing and became a little bit confused. Ultimately, he was brought to the [facility] for closer evaluation. He cannot provide me with any additional elements of the history presently. PAST MEDICAL HISTORY: 1. Colon cancer. 2. Chronic hypoxic and hypercapnic respiratory failure. 3. COPD, oxygen dependent. 4. Tobacco abuse, ongoing. 5. Hypertension. 6. Anemia. PAST SURGICAL HISTORY: 1. Colon resection. 2. Appendectomy. 3. Laparotomy. ALLERGIES: NO KNOWN DRUG ALLERGIES. MEDICATIONS: List of his inpatient medications was reviewed. Multiple updates were made. REVIEW OF SYSTEMS: General, head, ears, eyes, nose, throat, cardiovascular, respiratory, GI, , musculoskeletal, neurologic, and skin is negative except as mentioned in the HPI. FAMILY HISTORY: Noncontributory. SOCIAL HISTORY: He lives in [place] with his . He uses a walker to get around. He is currently using cigarette smoke and has a greater than 50-pack year history of smoking. Denies any significant alcohol or illicit drug use. PHYSICAL EXAMINATION: VITAL SIGNS: Afebrile, pulse 97, blood pressure 101/57, respirations 24, saturation 97% on 2 L nasal cannula. GENERAL: The patient is somnolent. HEENT: Normocephalic and atraumatic. Sclerae white. Conjunctivae pink. Oral mucosa is quite dry. LUNGS: Decent air entry. There is a slightly prolonged expiratory phase. Rhonchi are present throughout both inspiration and expiration. HEART: Tachycardic, regular. ABDOMEN: Distended. Bowel sounds are hypoactive. There is tenderness to palpation without rebound or guarding. GENITOURINARY: Richardson catheter in place. NEUROLOGIC: Diffuse encephalopathy is present. He moves all 4 extremities spontaneously. LABORATORY DATA: WBC 10.1, hemoglobin 11.8, and platelets 183,000. Creatinine 2.46 and gently up trending, BUN 89, chloride 115, sodium 147. Basic metabolic profile and liver function studies are otherwise unremarkable. TSH falls within the normal limits. Ammonia is normal, and troponin is indeterminate x3. Lactate is unremarkable. Urinalysis is unremarkable. Digoxin level 1.21. Stool lactoferrin is positive for white blood cells and negative for C. diff antigen and toxin. IMAGIN. Abdominal x-ray demonstrates bowel gas distention. 2. Echocardiogram demonstrates normal ejection fraction. 3. CT of the head demonstrates no acute intracranial abnormality. 4. CT scan of the abdomen and pelvis demonstrates prominent air-filled loops of the small bowel in the right jennifer abdomen. Partial obstruction versus ileus is suspected. Mucosal thickening involves the sigmoid colon. 5. Chest x-ray demonstrates no acute cardiopulmonary abnormality. ASSESSMENT: 1. Chronic hypoxic and hypercapnic respiratory failure. 2. Chronic obstructive pulmonary disease with acute exacerbation. 3. Ileus versus partial small-bowel obstruction. 4. Acute kidney injury. 5. Dehydration secondary to recent gastroenteritis. DISCUSSION AND PLAN: The patient's free water deficit is about 3 L. As such, I will put him at 125 of D5 water for the next 24 hours. This will need to be readdressed tomorrow morning. ABG will be performed. If he proves to have hypercapnia, we will place an NG tube to evacuate his stomach, and then put him on BiPAP. He is now a DNAR; therefore, intubating him is off the table. Palliative Care consultation has already been placed, which I agree with. I will repeat potassium, and phosphorus tomorrow morning. Any electrolyte derangements need to be aggressively pursued to resolve his suspected ileus. Agree with current antibiotics directed at GI issues. Pulmonary Critical Care will continue to follow very closely. Dr. Estes has established relationship with Mr. Johnson, so he will assume care in the morning. 70 minutes have been devoted to this patient in various activities. I personally reviewed all imaging studies and laboratory data noted within this document. For fifty percent of this time, I was interacting with the patient at the bedside or coordinating care with the care team. For the remainder of the time I was immediately available to the patient in the hospital unit. Job ID: [id number] MTDD
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
--- NOTE | 2018-07-07 07:30 | DIS ---
DATE OF ADMISSION: 07/02/2018 DATE OF DISCHARGE: 07/06/2018 DISCHARGE SUMMARY/ SUMMARY: DATE OF : 07/06/2018. TIME OF : 2147 hours. PRIMARY CAUSE OF : Severe sepsis with multiorgan dysfunction, small-bowel obstruction, gastroenteritis, acute kidney failure, acute metabolic encephalopathy, atrial fibrillation with rapid ventricular response. CONTRIBUTING DIAGNOSES: Chronic obstructive pulmonary disease, chronic respiratory failure with hypoxia, hypertension, and benign enlargement of prostate. HOSPITAL COURSE: A 68-year-old male, who was admitted by Dr. Johnson. Please see his H and P for further details. The patient was presented with gastroenteritis and subsequently, he developed partial bowel obstruction with abdominal distention. He developed sepsis with multiorgan dysfunction. He also developed atrial fibrillation with rapid ventricular response. The patient's condition day-by-day gradually deteriorated. Initially, he was admitted to medical floor, required telemetry transfer, and subsequently IMCU transfer. The patient was DNR by his wish and agreed. Abdominal distention was related with acute abdomen secondary to intraabdominal process. General Surgery was consulted. He was not deemed candidate for any kind of surgery. Pulmonary was also consulted. The patient's decided to make him comfortable rather than going for any aggressive care. Palliative Care was consulted, and the patient's family member decided to go for comfort care only. The patient was in hospice type of care and he at 2147 hours. was pronounced, and body was released for . Job ID: [id number]
[2018-07-07] MEDS ORDERED: Digoxin 0.5 MG/2 ML AMP SLOW IVP SCH (09:00)
[2018-07-07] MEDS ORDERED: Pantoprazole 40 MG VIAL IVP SCH (09:00)
== END 2018-07-06 21:47 | disposition hospice, inpatient (51) | DRG 871 ==
LOC: ERS 11:11 → T4-A 16:34 → 2NO 07-05 00:12 → IMCU/EMU 07-06 09:55
PROVIDERS: ADMIT Family Medicine; ATTEND Family Medicine
DX: A41.9 Sepsis, unspecified organism (principal); G93.41 Metabolic encephalopathy; J96.22 Acute and chronic respiratory failure with hypercapnia; J96.21 Acute and chronic respiratory failure with hypoxia; K55.039 Acute (reversible) ischemia of large intestine, extent unspecified; N17.9 Acute kidney failure, unspecified; I50.22 Chronic systolic (congestive) heart failure; I48.92 Unspecified atrial flutter; K56.690 Other partial intestinal obstruction; J44.1 Chronic obstructive pulmonary disease with (acute) exacerbation; Z66 Do not resuscitate; R65.20 Severe sepsis without septic shock; I48.91 Unspecified atrial fibrillation; N40.0 Benign prostatic hyperplasia without lower urinary tract symptoms; F17.210 Nicotine dependence, cigarettes, uncomplicated; D64.9 Anemia, unspecified; E66.9 Obesity, unspecified; I11.0 Hypertensive heart disease with heart failure; E86.0 Dehydration; E87.8 Other disorders of electrolyte and fluid balance, not elsewhere classified; Z68.34 Body mass index [BMI] 34.0-34.9, adult; Z79.899 Other long term (current) drug therapy; Z99.81 Dependence on supplemental oxygen; Z90.49 Acquired absence of other specified parts of digestive tract; Z79.51 Long term (current) use of inhaled steroids
CPT/HCPCS: 36415; 36416; 70450; 71045; 74018; 74176; 80048; 80053; 80162; 81003; 81015; 82140; 82274; 82805; 83605; 83630; 83690; 83735; 83880; 84100; 84439; 84443; 84484; 85007; 85025; 85027; 87045; 87046; 87077; 87086; 87186; 87324; 87449; 87899; 93005; 93010; 93306; 94640; 94664; 94760; 96360; 96361; C9113; J0692; J1160; J1644; J1650; J2060; J2270; J3370; J3486; J7050; J7626

== ENCOUNTER 2018-07-06 21:54 | Inpatient (IN) | payer OTHER ==
[2018-07-06] MEDS ORDERED: Morphine 4 MG/ML VIAL SLOW IVP PRN (22:23)
[2018-07-06] MEDS ORDERED: Lorazepam 2 MG/ML VIAL SLOW IVP PRN (22:25)
[2018-07-06] MEDS ORDERED: Scopolamine 1.5 mg/72 hour Patch TOP SCH (22:30)
[2018-07-06] MEDS: Morphine 4 MG/ML VIAL SLOW IVP SCH (22:32)
[2018-07-07] MEDS: Morphine 4 MG/ML VIAL SLOW IVP SCH (00:37)
--- NOTE | 2018-07-08 13:22 | DIS ---
DATE OF ADMISSION: 07/06/2018 DATE OF DISCHARGE: 07/07/2018 TIME OF : 1:03 a.m. DATE OF : July 07, 2018. CAUSE OF : Severe sepsis with multiorgan failure, renal failure. HOSPITAL COURSE: This is a 68-year-old gentleman, who failed medical therapy and was put on hospice. The patient peacefully at the time above. [place] [facility] [place] complications were [place]. Job ID: [id number]
== END 2018-07-07 01:03 | disposition expired | DRG 871 ==
LOC: IMCU/EMU 21:54
PROVIDERS: ADMIT Internal Medicine Nephrology; ATTEND Internal Medicine Nephrology
DX: A41.9 Sepsis, unspecified organism (principal); G93.41 Metabolic encephalopathy; R40.2123 Coma scale, eyes open, to pain, at hospital admission; R40.2223 Coma scale, best verbal response, incomprehensible words, at hospital admission; J96.22 Acute and chronic respiratory failure with hypercapnia; N17.9 Acute kidney failure, unspecified; I48.92 Unspecified atrial flutter; K56.600 Partial intestinal obstruction, unspecified as to cause; Z66 Do not resuscitate; R65.20 Severe sepsis without septic shock; J44.9 Chronic obstructive pulmonary disease, unspecified; I10 Essential (primary) hypertension; D64.9 Anemia, unspecified; K52.9 Noninfective gastroenteritis and colitis, unspecified; I48.91 Unspecified atrial fibrillation; E78.5 Hyperlipidemia, unspecified; N40.0 Benign prostatic hyperplasia without lower urinary tract symptoms; E66.9 Obesity, unspecified; F17.210 Nicotine dependence, cigarettes, uncomplicated; R40.2363 Coma scale, best motor response, obeys commands, at hospital admission; Z99.81 Dependence on supplemental oxygen; Z79.51 Long term (current) use of inhaled steroids; Z90.49 Acquired absence of other specified parts of digestive tract
CPT/HCPCS: J2060; J2270